=== PATIENT | male | born 1935 | race Caucasian/White ===

== ENCOUNTER 2021-07-13 00:33 | Inpatient (IN) | payer MEDICARE ==
--- NOTE | 2021-07-13 02:27 | XR ---
EXAMINATION TYPE: XR chest 1V DATE OF EXAM: 07/13/2021 COMPARISON: NONE HISTORY: Altered mental status TECHNIQUE: Single view FINDINGS: There is patchy bilateral pulmonary interstitial and airspace infiltrates. There is left ax illary pacemaker. Heart is top normal in size. There are no hilar masses. There is no pleural effusio n. IMPRESSION: Bilateral patchy pneumonia. No obvious heart failure.
--- NOTE | 2021-07-13 02:32 | CT ---
EXAMINATION TYPE: CT brain wo con DATE OF EXAM: 07/13/2021 COMPARISON: None HISTORY: ams. NO PRIOR ON pacs CT DLP: 1070.4 mGycm Automated exposure control for dose reduction was used. There is cerebral cortical atrophy. There is no mass effect nor midline shift. There is no sign of in tracranial hemorrhage. There is some patchy hypodensity in the periventricular white matter. There is hypodensity in most of the left cerebellar hemisphere in the superior aspect. This measures 4.6 x 2.1 cm. Fourth ventricle is in the midline. The calvarium is intact. Skull base is intact. Ther e is normal aeration of the mastoid sinuses. IMPRESSION: Cerebral atrophy and chronic small vessel ischemia. 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 No acute intracranial abnormality.
[2021-07-13 02:59] LABS: Glucose,Whole Blood 205 mg/dL (75-99)
[2021-07-13 03:45] LABS: Basophils % (A) 0 %; Eosinophils # (A) 0.1 k/uL (0-0.7); Eosinophils % (A) 1 %; HCT 39.8 % (39.0-53.0); HGB 13.3 gm/dL (13.0-17.5); Lymphocytes # (A) 0.7 k/uL (1.0-4.8); Lymphocytes % (A) 9 %; MCH 32.9 pg (25.0-35.0); MCHC 33.3 g/dL (31.0-37.0); Mean Platelet Volume 9.3; Monocytes # (A) 0.2 k/uL (0-1.0); Monocytes % (A) 3 %; Neutrophils # (A) 7.1 k/uL (1.3-7.7); Neutrophils % (A) 87 %; Platelet Count 304 k/uL (150-450); RBC 4.03 m/uL (4.30-5.90); RDW 13.3 % (11.5-15.5); WBC 8.2 k/uL (3.8-10.6)
[2021-07-13 03:46] LABS: Appearance,Urine Clear (Clear); Bilirubin,Urine Negative (Negative); Blood,Urine Negative (Negative); Color,Urine Yellow; Glucose,Urine (UA) 3+ (Negative); Ketones,Urine Negative (Negative); Leukocyte Esterase,Urine Negative (Negative); Nitrite,Urine Negative (Negative); PH, Urine 5.5 (5.0-8.0); Protein,Urine Trace (Negative); Specific Gravity,Urine 1.019 (1.001-1.035); Urobilinogen,Urine <2.0 mg/dL (<2.0)
[2021-07-13 04:05] LABS: Albumin 2.8 g/dL (3.5-5.0); Calcium 8.5 mg/dL (8.4-10.2); INR 1.1 (<1.2); Potassium 4.8 mmol/L (3.5-5.1); Prothrombin Time 11.3 sec (9.0-12.0); Total Bilirubin 0.9 mg/dL (0.2-1.3); Total Protein 5.6 g/dL (6.3-8.2)
[2021-07-13 04:10] LABS: Partial Thromboplastin Time 21.1 sec (22.0-30.0)
[2021-07-13] MEDS ORDERED: IBUPROFEN 400 MG TAB PO PRN (05:01)
[2021-07-13] MEDS ORDERED: ACETAMINOPHEN TAB 325 MG TAB PO PRN (05:01)
[2021-07-13] MEDS ORDERED: ONDANSETRON 4 MG/2 ML VIAL IVP PRN (05:01)
[2021-07-13] MEDS ORDERED: NALOXONE 0.4 MG/ML 1 ML VIAL IV PRN (05:01)
[2021-07-13] MEDS ORDERED: MAG HYDROX/AL HYDROX/SIMETH 30 ML CUP PO PRN (05:01)
[2021-07-13] MEDS: SODIUM CHLORIDE 0.9% 1,000 ML IV SCH ×2 (05:28→20:29)
[2021-07-13] MEDS: DEXAMETHASONE SOD PHOSPHATE 10 MG/ML 1 ML VIAL IV SCH (08:22)
--- NOTE | 2021-07-13 09:14 | ED ---
Altered Mental Status HPI - General Chief Complaint: Altered Mental Status Stated Complaint: Altered Mental, Urogenital, COVID+ Time Seen by Provider: 07/13/21 01:03 Source: patient Mode of arrival: wheelchair - History of Present Illness Initial Comments: This patient is an 86-year-old man who presents to have evaluation for altered mental status. The patient is with son and [id number] give most of the history. The family state they had gone to get the patient from the [facility] last week after he had developed fever or cough and was diagnosed with COVID-19. Since he has been with them he has been less active and more apathetic. He has been less verbal. He takes some prodding in order to answer questions now. The patient denies complaints. Patient is very hard of hearing MD Complaint: altered mental status, decreased responsiveness -: days(s) Severity: moderate Consistency of Symptoms: getting worse Context: other Associated Symptoms: cough - Related Data Allergies Allergy/AdvReac Type Severity Reaction Status Date / Time No Known Allergies Allergy Verified 07/13/21 00:45 Review of Systems ROS Statement: Those systems with pertinent positive or pertinent negative responses have been documented in the HPI. ROS Other: All systems not noted in ROS Statement are negative. Constitutional: Reports: fever, weakness Eyes: Denies: vision change ENT: Denies: congestion Respiratory: Reports: cough. 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 Absent: scleral icterus, conjunctival injection ENT exam: Present: mucous membranes dry Neck exam: Present: normal inspection, full ROM Respiratory exam: Present: rales. Absent: respiratory distress, wheezes, rhonchi, stridor Cardiovascular Exam: Present: regular rate, normal rhythm, normal heart sounds. Absent: systolic murmur, diastolic murmur, rubs, gallop GI/Abdominal exam: Present: soft. Absent: distended, tenderness, guarding, rebound, rigid, mass, pulsatile mass Extremities exam: Present: normal inspection, normal capillary refill. Absent: pedal edema, calf tenderness Back exam: Present: normal inspection. Absent: CVA tenderness (R), CVA tenderness (L) Neurological exam: Present: alert Skin exam: Present: warm, dry, intact, normal color. Absent: rash Course Vital Signs 07/13/21 07/13/21 07/13/21 00:36 02:48 03:50 Temperature 97.8 F Pulse Rate 69 68 58 L Respiratory 19 18 18 Rate Blood Pressure 90/57 115/64 124/66 O2 Sat by Pulse 91 L 90 L 93 L Oximetry 07/13/21 07/13/21 07/13/21 05:28 07:08 08:18 Temperature 98.9 F Pulse Rate 68 61 73 Respiratory 18 18 22 Rate Blood Pressure 115/63 117/65 112/88 O2 Sat by Pulse 93 L 92 L 94 L Oximetry Medical Decision Making - Lab Data Result diagrams: 07/13/21 03:03 07/13/21 03:03 Lab Results 07/13/21 07/13/21 07/13/21 Range/Units 02:58 03:03 03:03 WBC 8.2 (3.8-10.6) k/uL RBC 4.03 L (4.30-5.90) m/uL Hgb 13.3 (13.0-17.5) gm/dL Hct 39.8 (39.0-53.0) % MCV 99.0 (80.0-100.0) fL MCH 32.9 (25.0-35.0) pg MCHC 33.3 (31.0-37.0) g/dL RDW 13.3 (11.5-15.5) % Plt Count 304 (150-450) k/uL MPV 9.3 Neutrophils % 87 % Lymphocytes % 9 % Monocytes % 3 % Eosinophils % 1 % Basophils % 0 % Neutrophils # 7.1 (1.3-7.7) k/uL Lymphocytes # 0.7 L (1.0-4.8) k/uL Monocytes # 0.2 (0-1.0) k/uL Eosinophils # 0.1 (0-0.7) k/uL Basophils # 0.0 (0-0.2) k/uL PT 11.3 (9.0-12.0) sec INR 1.1 (<1.2) APTT 21.1 L (22.0-30.0) sec Sodium (137-145) mmol/L Potassium (3.5-5.1) mmol/L Chloride (98-107) mmol/L Carbon Dioxide (22-30) mmol/L Anion Gap mmol/L BUN (9-20) mg/dL Creatinine (0.66-1.25) mg/dL Est GFR (CKD-EPI)AfAm (>60 ml/min/1.73 sqM) Est GFR (CKD-EPI)NonAf (>60 ml/min/1.73 sqM) Glucose (74-99) mg/dL POC Glucose (mg/dL) 205 H (75-99) mg/dL POC Glu Mash Filter Cloth Changer ID Radhat Peter Calcium (8.4-10.2) mg/dL Total Bilirubin (0.2-1.3) mg/dL AST (17-59) U/L ALT (4-49) U/L Alkaline Phosphatase (38-126) U/L Troponin I (0.000-0.034) ng/mL Total Protein (6.3-8.2) g/dL Albumin (3.5-5.0) g/dL Urine Color Urine Appearance (Clear) Urine pH (5.0-8.0) Ur Specific [place] (1.001-1.035) Urine Protein (Negative) Urine Glucose (UA) (Negative) Urine Ketones (Negative) Urine Blood (Negative) Urine Nitrite (Negative) Urine Bilirubin (Negative) Urine Urobilinogen (<2.0) mg/dL Ur Leukocyte Esterase (Negative) 07/13/21 07/13/21 07/13/21 Range/Units 03:03 03:03 03:03 WBC (3.8-10.6) k/uL RBC (4.30-5.90) m/uL Hgb (13.0-17.5) gm/dL Hct (39.0-53.0) % MCV (80.0-100.0) fL MCH (25.0-35.0) pg MCHC (31.0-37.0) g/dL RDW (11.5-15.5) % Plt Count (150-450) k/uL MPV Neutrophils % % Lymphocytes % % Monocytes % % Eosinophils % % Basophils % % Neutrophils # (1.3-7.7) k/uL Lymphocytes # (1.0-4.8) k/uL Monocytes # (0-1.0) k/uL Eosinophils # (0-0.7) k/uL Basophils # (0-0.2) k/uL PT (9.0-12.0) sec INR (<1.2) APTT (22.0-30.0) sec Sodium 135 L (137-145) mmol/L Potassium 4.8 (3.5-5.1) mmol/L Chloride 108 H (98-107) mmol/L Carbon Dioxide 20 L (22-30) mmol/L Anion Gap 7 mmol/L BUN 38 H (9-20) mg/dL Creatinine 1.29 H (0.66-1.25) mg/dL Est GFR (CKD-EPI)AfAm 57 (>60 ml/min/1.73 sqM) Est GFR (CKD-EPI)NonAf 49 (>60 ml/min/1.73 sqM) Glucose 229 H (74-99) mg/dL POC Glucose (mg/dL) (75-99) mg/dL POC Glu Mash Filter Cloth Changer ID Calcium 8.5 (8.4-10.2) mg/dL Total Bilirubin 0.9 (0.2-1.3) mg/dL AST 27 (17-59) U/L ALT 22 (4-49) U/L Alkaline Phosphatase 90 (38-126) U/L Troponin I 0.015 (0.000-0.034) ng/mL Total Protein 5.6 L (6.3-8.2) g/dL Albumin 2.8 L (3.5-5.0) g/dL Urine Color Yellow Urine Appearance Clear (Clear) Urine pH 5.5 (5.0-8.0) Ur Specific [place] 1.019 (1.001-1.035) Urine Protein Trace H (Negative) Urine Glucose (UA) 3+ H (Negative) Urine Ketones Negative (Negative) Urine Blood Negative (Negative) Urine Nitrite Negative (Negative) Urine Bilirubin Negative (Negative) Urine Urobilinogen <2.0 (<2.0) mg/dL Ur Leukocyte Esterase Negative (Negative)
[2021-07-13] MEDS: CHOLECALCIFEROL 25 MCG (1000 IU) TABLET PO SCH (09:21)
[2021-07-13] MEDS: ENOXAPARIN 30 MG/0.3 ML SYRINGE SQ SCH (09:58)
[2021-07-13] MEDS: ASCORBIC ACID 500 MG TAB PO SCH (09:58)
[2021-07-13] MEDS: FAMOTIDINE 20 MG TAB PO SCH (09:58)
[2021-07-13] MEDS: ZINC SULFATE 220 MG CAP PO SCH (09:58)
--- NOTE | 2021-07-13 10:54 | P.HPIM ---
History of Present Illness This is a pleasant 86 years old male with past medical history of CVA with and unsteady gait. Patient is independent at baseline in the [facility], however he was admitted recently to [facility] for Covid [facility], he was admitted originally before being unresponsive and an appropriate period he said to the hospital for 4 days, he was discharge on a 3-4 L/m of oxygen. When he was discharged he was a little confused, talking in 1-[address] Kavon zamora at bedside. He was dribbling urine and been on the floor, getting worse yesterday so they decided to bring him to the hospital. This morning patient is sleepy but he wakes up to verbal stimuli, he knows he is in the hospital, it is 2020 and he couldn't recognize his [id number]. He denies any specific complaints. No chest pain or dyspnea. No abdominal pain. No nausea vomiting or diarrhea. No fever. pt presents with son and daughter in law. pt daughter reports possible UTI. says he was acting more confused then normal. discharged on tuesday from [facility] for COVID+. increased accidents and urgency of urination. normal he is AOx4. when asked about symptoms he says he is fine. pt not answering questions. On admission he was slightly hypotensive 90/57, currently blood pressure is 112/88, afebrile, he is saturating 94% on 4 L oxygen via nasal cannula CBC showed moderate lymphopenia at 0.7. INR is 1.1, sodium 135, creatinine is slightly elevated at 1.29, unknown baseline Glucose 205, urine analysis showing glucosuria with no evidence of infection EKG showing normal sinus rhythm at [address]-T changes and QTC 406. CT of the brain showing cerebral atrophy. No acute process. All large left cer ebellar hemisphere infarct. Chest x-ray: Bilateral pneumonia In the emergency room patient started on normal saline, dexamethasone and admitted with infectious disease consults Past Medical History Past Medical History: CVA/TIA Additional Past Medical History / Comment(s): 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, cataracts History of Any Multi-Drug Resistant Organisms: None Reported Past Surgical History: No Surgical Hx Reported Past Psychological History: No Psychological Hx Reported Smoking Status: Never smoker Past Alcohol Use History: None Reported Past Drug Use History: None Reported Medications and Allergies Home Medications Medication Instructions Recorded Confirmed Type Allopurinol [Zyloprim] 100 mg PO DAILY 07/13/21 07/13/21 History Artificial Tears-Hypromellose 1 drop BOTH EYES BID 07/13/21 07/13/21 History [Artificial Tear Drops] Aspirin EC [Ecotrin Low Dose] 81 mg PO HS 07/13/21 07/13/21 History Atorvastatin [Lipitor] 40 mg PO HS 07/13/21 07/13/21 History Cholecalciferol [Vitamin D3 (25 25 mcg PO DAILY 07/13/21 07/13/21 History Mcg = 1000 Iu)] Enalapril [Vasotec] 20 mg PO HS 07/13/21 07/13/21 History Allergies Allergy/AdvReac Type Severity Reaction Status Date / Time No Known Allergies Allergy Verified 07/13/21 10:41 Physical Exam Vitals: Vital Signs Temp Pulse Resp BP Pulse Ox 07/13/21 08:18 98.9 F 73 22 112/88 94 L 07/13/21 07:08 61 18 117/65 92 L 07/13/21 05:28 68 18 115/63 93 L 07/13/21 03:50 58 L 18 124/66 93 L 07/13/21 02:48 68 18 115/64 90 L 07/13/21 00:36 97.8 F 69 19 90/57 91 L Intake and Output 07/12/21 07/13/21 07/13/21 22:59 06:59 14:59 Other: Weight 54.431 kg Results CBC & Chem 7: 07/13/21 03:03 07/13/21 03:03 Labs: Abnormal Lab Results - Last 24 Hours (Table) 07/13/21 07/13/21 07/13/21 Range/Units 02:58 03:03 03:03 RBC 4.03 L (4.30-5.90) m/uL Lymphocytes # 0.7 L (1.0-4.8) k/uL APTT 21.1 L (22.0-30.0) sec Sodium (137-145) mmol/L Chloride (98-107) mmol/L Carbon Dioxide (22-30) mmol/L BUN (9-20) mg/dL Creatinine (0.66-1.25) mg/dL Glucose (74-99) mg/dL POC Glucose (mg/dL) 205 H (75-99) mg/dL Total Protein (6.3-8.2) g/dL Albumin (3.5-5.0) g/dL Urine Protein (Negative) Urine Glucose (UA) (Negative) 07/13/21 07/13/21 Range/Units 03:03 03:03 RBC (4.30-5.90) m/uL Lymphocytes # (1.0-4.8) k/uL APTT (22.0-30.0) sec Sodium 135 L (137-145) mmol/L Chloride 108 H (98-107) mmol/L Carbon Dioxide 20 L (22-30) mmol/L BUN 38 H (9-20) mg/dL Creatinine 1.29 H (0.66-1.25) mg/dL Glucose 229 H (74-99) mg/dL POC Glucose (mg/dL) (75-99) mg/dL Total Protein 5.6 L (6.3-8.2) g/dL Albumin 2.8 L (3.5-5.0) g/dL Urine Protein Trace H (Negative) Urine Glucose (UA) 3+ H (Negative) Assessment and Plan Assessment: Acute bilateral Covid pneumonia acute hypoxic respiratory failure Altered mental status most likely metabolic encephalopathy Acute kidney injury versus chronic kidney disease stage III History of CVA with and unsteady gait. CT showed old large left cerebellar hemisphere infarct Plan: This is a pleasant 86 years old male who presents with Covid pneumonia. Continue with with dexamethasone, multiple vitamin Infectious disease on pulmonary consult Lovenox Labs and medication were reviewed.. Continue same treatment. Continue with sy mptomatic treatment. Resume home medication. Monitor lytes and vitals. DVT and GI prophylaxis. Further recommendationsas per clinical course of the patient DVT prophylaxis: Subcutaneous heparin GI Prophylaxis: Pepcid PT/OT: Pending Prognosis is guarded
[2021-07-13] MEDS ORDERED: REMDESIVIR 200 MG in SODIUM CHLORIDE 0.9% 250 ML IVPB ONE (16:43)
--- NOTE | 2021-07-13 16:51 | P.CNPUL ---
History of Present Illness Consult date: 07/13/21 Chief complaint: Generalized weakness, altered mentation History of present illness: This patient is an 86-year-old man who presents to have evaluation for altered mental status. The patient is with son and [id number] give most of the his tory. The family state they had gone to get the patient from the [facility] last week after he had developed fever or cough and was diagnosed with COVID-19. Since he has been with them he has been less active and more apathetic. He has been less verbal. He takes some prodding in order to answer questions now. The patient denies complaints. Patient is very hard of hearing the preliminary workup that was done in emergency department revealed a white cell count of 8.2 and the patient had lymphopenia of 0.7. Normal coagulation profile. D-dimer was not done. 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 Glucose is at 229. The patient had normal LFTs, inflammatory markers have not been checked. UA is showing custody glucose, otherwise negative. COVID-19 testing was positive by PCR. The chest x-ray showed bilateral patchy pulmonary infiltrates consistent with COVID-19 related pneumonia. 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 No acute intracranial abnormalities. The patient was started on treatment with Decadron 6 mg IV every 24 hours. He was placed on Lovenox 30 mg subcu every 24 hours. Outpatient medication were also resumed. He is currently on IV fluids with normal saline at the rate of 75 mL an hour. The patient was checked positive on outpatient basis on 07/05/2021. His symptoms started on the same day and the family did outpatient testing kit the cuff turner to be positive. He is hard of hearing. His vision is impaired because of cataracts. Prior to that, he was living independently. Review of Systems Constitutional: Reports fatigue, Reports fever, Reports lethargy, Reports weakness Eyes: bilateral decreased vision, denies as per HPI, denies blurred vision, denies bulging eye, denies diplopia, denies discharge, denies dry eye, denies irritation, denies itching, denies pain, denies photophobia, denies loss of peripheral vision, denies loss of vision, denies tunnel vision/blind spots Ears: bilateral: decreased hearing, deny: ear discharge, earache, tinnitus Ears, nose, mouth and throat: Reports as per HPI Breasts: absent: as per HPI, gynecomastia Cardiovascular: Reports decreased exercise tolerance, Reports dyspnea on exertion Respiratory: Reports cough Gastrointestinal: Reports as per HPI (Dysphagia) Genitourinary: Reports as per HPI, Reports urinary frequency Musculoskeletal: Reports as per HPI, Reports muscle weakness Musculoskeletal: absent: ankle pain, ankle stiffness, ankle swelling Integumentary: Reports as per HPI Neurological: Reports as per HPI, Reports gait dysfunction, Reports lack of co ordination, Reports visual changes Psychiatric: Reports as per HPI (His throat. Leave any deficits on have) Endocrine: Reports as per HPI Hematologic/Lymphatic: Reports as per HPI Allergic/Immunologic: Reports as per HPI Past Medical History Past Medical History: CVA/TIA Additional Past Medical History / Comment(s): 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, cataracts History of Any Multi-Drug Resistant Organisms: None Reported Past Surgical History: No Surgical Hx Reported Past Psychological History: No Psychological Hx Reported Smoking Status: Never smoker Past Alcohol Use History: None Reported Past Drug Use History: None Reported Medications and Allergies Home Medications Medication Instructions Recorded Confirmed Type Allopurinol [Zyloprim] 100 mg PO DAILY 07/13/21 07/13/21 History Artificial Tears-Hypromellose 1 drop BOTH EYES BID 07/13/21 07/13/21 History [Artificial Tear Drops] Aspirin EC [Ecotrin Low Dose] 81 mg PO HS 07/13/21 07/13/21 History Atorvastatin [Lipitor] 40 mg PO HS 07/13/21 07/13/21 History Cholecalciferol [Vitamin D3 (25 25 mcg PO DAILY 07/13/21 07/13/21 History Mcg = 1000 Iu)] Enalapril [Vasotec] 20 mg PO HS 07/13/21 07/13/21 History Allergies Allergy/AdvReac Type Severity Reaction Status Date / Time No Known Allergies Allergy Verified 07/13/21 10:41 Physical Exam Vitals: Vital Signs Temp Pulse Resp BP Pulse Ox 07/13/21 08:18 98.9 F 73 22 112/88 94 L 07/13/21 07:08 61 18 117/65 92 L 07/13/21 05:28 68 18 115/63 93 L 07/13/21 03:50 58 L 18 124/66 93 L 07/13/21 02:48 68 18 115/64 90 L 07/13/21 00:36 97.8 F 69 19 90/57 91 L Intake and Output 07/13/21 07/13/21 07/13/21 06:59 14:59 22:59 Other: Weight 54.431 kg 54.431 kg Gen. appearance the patient is calm and comfortable and the breathing is non labored Head exam was generally normal. There was no scleral icterus or corneal arcus. Mucous membranes were moist. Neck was supple and without jugular venous distension, thyromegaly, or carotid bruits. Carotids were easily palpable bilaterally. There was no adenopathy. Lungs sounds are diminished and the patient has contacted the mid and lower lung gonzáles bilaterally Cardiac exam revealed the PMI to be normally situated and sized. The rhythm was regular and no extrasystoles were noted during several minutes of auscultation. The first and second heart sounds were normal and physiologic splitting of the second heart sound was noted. There was a systolic ejection murmur grade 3/6 murmurs, rubs, clicks, or gallops. The patient is a pacemaker pocket over the left anterior chest area Abdominal exam revealed normal bowel sounds. The abdomen was soft, non-tender, and without masses, organomegaly, or appreciable enlargement of the abdominal aorta. Examination of the extremities revealed easily palpable radial, femoral and pedal pulses. There was no cyanosis, clubbing or edema. Examination of the skin revealed no evidence of significant rashes, suspicious appearing nevi or other concerning lesions. Neurologically, the patient is awake and alert and the patient does not have any focal neurological deficit. The patient has difficult with gait and diffuse motor weakness all 4 extremities. No facial asymmetry. He has impaired vision secondary to cataracts and impaired hearing both being chronic problems. Results - Laboratory Findings CBC and BMP: 07/13/21 03:03 07/13/21 03:03 PT/INR, D-dimer PT 11.3 sec (9.0-12.0) 07/13/21 03:03 INR 1.1 (<1.2) 07/13/21 03:03 Abnormal lab findings: Abnormal Labs 07/13/21 07/13/21 07/13/21 02:58 03:03 03:03 RBC 4.03 L Lymphocytes # 0.7 L APTT 21.1 L Sodium Chloride Carbon Dioxide BUN Creatinine Glucose POC Glucose (mg/dL) 205 H Total Protein Albumin Urine Protein Urine Glucose (UA) Coronavirus (PCR) 07/13/21 07/13/21 07/13/21 03:03 03:03 10:13 RBC Lymphocytes # APTT Sodium 135 L Chloride 108 H Carbon Dioxide 20 L BUN 38 H Creatinine 1.29 H Glucose 229 H POC Glucose (mg/dL) Total Protein 5.6 L Albumin 2.8 L Urine Protein Trace H Urine Glucose (UA) 3+ H Coronavirus (PCR) Detected A - Diagnostic Findings Chest x-ray: image reviewed Assessment and Plan Plan: 1 acute COVID-19 related pneumonia and the symptoms started on 07/05/2021. The patient is currently hospitalized with worsening shortness of breath, lethargy, altered mentation and hypoxemia. Note that this is a vaccinated individual and the patient has received his J&J vaccine approximately 6-8 months ago. 2 acute hypoxic respiratory failure secondary to above currently on oxygen at 3 L. 3 cough and dyspnea secondary to above 4 lethargy and altered mentation secondary to above. CAT scan of the brain shows an old CVA 5 old left cerebellar CVA back in 2006 with secondary difficulties with balance and gait, 6 history of pacemaker insertion 7 impaired hearing 8 impaired vision 9 acute kidney injury with a creatinine of 1.29 10 hyperlipidemia 11 generalized weakness and intravascular volume the patient's secondary to above currently on IV fluids. Plan IV fluid hydration with normal saline at the rate of 75 mL an hour Titrate oxygen to maintain saturation above 90%, currently on 3 L Start The patient Decadron 6 mg every 24 hours and Remdesivir per protocol Lovenox 40 mg subcu for DVT prophylaxis Check inflammatory markers including LDH CRP and d-dimer Check pro calcitonin level Cover the patient with a insulin sliding scale coverage Patient has a DNR/DNI CODE STATUS.
[2021-07-13 17:26] LABS: Glucose,Whole Blood 323 mg/dL (75-99)
[2021-07-13] MEDS: INSULIN ASPART (NovoLOG) 100 UNIT/ML VIAL SQ SCH ×2 (17:34→21:34)
[2021-07-13 19:31] LABS: C Reactive Protein 15.3 mg/dL (<1.0)
[2021-07-13 21:27] LABS: Glucose,Whole Blood 188 mg/dL (75-99)
[2021-07-13] MEDS: ATORVASTATIN 40 MG TAB PO SCH (21:33)
[2021-07-13] MEDS: ASPIRIN 81 MG PO SCH (21:33)
--- NOTE | 2021-07-14 06:57 | P.CONS ---
History of Present Illness - Reason for Consult Consult date: 07/13/21 covid 19 pneumonia Requesting physician: Wesley E Sheet - Chief Complaint shortness of breath x few days - History of Present Illness History of present illness : Patient is 86-year-old male presenting to the hospital with mental status changes but when the patient family went to the [facility] to get the patient and the daughter the patient has developed a fever and a cough patient has been less active, there was some concern about a urinary symptom patient going to the mother more frequently however no clear history of any burning of urine no nausea no vomiting or any diarrhea with the symptom the patient has been evaluated by the ER physician on arrival to the ER the patient was afebrile and no fever was recorded subsequently patient was hypoxic requiring supplemental oxygen currently on 4 L nasal cannula patient did have a normal white count with the lymphopenia creatinine was mildly elevated did have a positive Covid test patient did have a chest x-ray with evidence of bilateral patchy pneumonia patient was admitted to hospital infectious was consulted for further management most information has been obtained from review the chart and talking with the daughter apparently the patient symptoms started around July 05, 2021 Review of system: Positive point has been mentioned in HPI complete review could not be obtained because of underlying mental status Past medical history : Reviewed, documented below Past surgical history : Reviewed, documented below Social history: Reviewed, documented below Medications: Reviewed, as documented below EXAMINATION: Vital sigans= Reviewed and documented below GENERAL DESCRIPTION: Elderly male lying in bed, no distress. No tachypnea or accessory muscle of respiration use. HEENT: Shows Pallor , no scleral icterus. Oral mucous membrane is dry. NECK: Trachea central, no thyromegaly. LUNGS: Unlabored breathing decreased breath sound at the base. No wheeze or crackle. HEART: S1, S2, regular rate and rhythm. ABDOMEN: Soft, no tenderness , guarding or rigidity EXTREMITIES: No edema of feet. SKIN: No rash, no masses palpable. NEUROLOGICAL: The patient is sleepy lethargic orientation could not be determined LABS AND RADIOLOGY: Reviewed results see below Assessment : Patient presented to hospital with weakness shortness of breath and cough in this patient did have evidence of bilateral patchy pneumonia secondary to COVID-19 infection in this patient symptom has been going on since July 05, 2021 and is currently more than 7 days and will not qualify for remdesivir per [facility] policy Plan: 1-patient has been started on dexamethasone Lovenox zinc and ascorbic acid to continue per protocol 2-droplet isolation and respiratory support We will follow on clinical condition and cultures to further adjust medication if needed Thank you for this consultation we will follow the patient along with you Past Medical History Past Medical History: CVA/TIA Additional Past Medical History / Comment(s): 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, cataracts History of Any Multi-Drug Resistant Organisms: None Reported Past Surgical History: No Surgical Hx Reported Past Psychological History: No Psychological Hx Reported Smoking Status: Never smoker Past Alcohol Use History: None Reported Past Drug Use History: None Reported Medications and Allergies Home Medications Medication Instructions Recorded Confirmed Type Allopurinol [Zyloprim] 100 mg PO DAILY 07/13/21 07/13/21 History Artificial Tears-Hypromellose 1 drop BOTH EYES BID 07/13/21 07/13/21 History [Artificial Tear Drops] Aspirin EC [Ecotrin Low Dose] 81 mg PO HS 07/13/21 07/13/21 History Atorvastatin [Lipitor] 40 mg PO HS 07/13/21 07/13/21 History Cholecalciferol [Vitamin D3 (25 25 mcg PO DAILY 07/13/21 07/13/21 History Mcg = 1000 Iu)] Enalapril [Vasotec] 20 mg PO HS 07/13/21 07/13/21 History Allergies Allergy/AdvReac Type Severity Reaction Status Date / Time No Known Allergies Allergy Verified 07/13/21 10:41 Physical Exam Vitals: Vital Signs Temp Pulse Pulse Resp BP BP Pulse Ox 07/14/21 06:00 97.4 F L 51 L 18 118/65 94 L 07/14/21 03:01 97.5 F L 56 L 16 101/48 93 L 07/13/21 23:38 52 L 16 103/56 95 07/13/21 16:47 97.8 F 59 L 18 119/61 91 L 07/13/21 08:18 98.9 F 73 22 112/88 94 L 07/13/21 07:08 61 18 117/65 92 L Intake and Output 07/13/21 07/13/21 07/14/21 14:59 22:59 06:59 Output Total 100 Balance -100 Output: Urine 100 Other: # Voids 2 Weight 54.431 kg Results CBC & Chem 7: 07/13/21 03:03 07/13/21 03:03 Labs: Abnormal Lab Results - Last 24 Hours (Table) 07/13/21 07/13/21 07/13/21 Range/Units 10:13 17:15 17:34 D-Dimer 7.27 H (<0.60) mg/L FEU POC Glucose (mg/dL) 323 H (75-99) mg/dL Lactate Dehydrogenase (313-618) U/L C-Reactive Protein (<1.0) mg/dL Coronavirus (PCR) Detected A (Not Detectd) 07/13/21 07/13/21 Range/Units 17:34 21:25 D-Dimer (<0.60) mg/L FEU POC Glucose (mg/dL) 188 H (75-99) mg/dL Lactate Dehydrogenase 993 H (313-618) U/L C-Reactive Protein 15.3 H (<1.0) mg/dL Coronavirus (PCR) (Not Detectd)
[2021-07-14 07:23] LABS: Glucose,Whole Blood 178 mg/dL (75-99)
[2021-07-14] MEDS: INSULIN ASPART (NovoLOG) 100 UNIT/ML VIAL SQ SCH ×4 (07:59→19:15)
[2021-07-14] MEDS: ENOXAPARIN 30 MG/0.3 ML SYRINGE SQ SCH (08:00)
[2021-07-14] MEDS: ASCORBIC ACID 500 MG TAB PO SCH (08:01)
[2021-07-14] MEDS: CHOLECALCIFEROL 25 MCG (1000 IU) TABLET PO SCH (08:01)
[2021-07-14] MEDS: ZINC SULFATE 220 MG CAP PO SCH (08:01)
[2021-07-14] MEDS: FAMOTIDINE 20 MG TAB PO SCH ×2 (08:01→19:15)
[2021-07-14] MEDS: DEXAMETHASONE SOD PHOSPHATE 10 MG/ML 1 ML VIAL IV SCH (08:01)
[2021-07-14] MEDS ORDERED: REMDESIVIR 100 MG in SODIUM CHLORIDE 0.9% 250 ML IVPB SCH (09:00)
[2021-07-14] MEDS: SODIUM CHLORIDE 0.9% 1,000 ML IV SCH ×2 (09:59→19:16)
[2021-07-14 10:59] LABS: African American GFR (CKD) 64.8 (60.0-200.0); Anion Gap 12.1 mmol/L (4.00-12.00); BUN/Creat Ratio 26.81 Ratio (12.00-20.00); Blood Urea Nitrogen 31.1 mg/dL (9.0-27.0); C Reactive Protein 8.2 mg/dL (0.00-0.80); Calcium 8.2 mg/dL (8.7-10.3); Carbon Dioxide 20.2 mmol/L (21.6-31.8); Non-African American GFR(CKD) 55.9 (60.0-200.0); Potassium 4.6 mmol/L (3.5-5.5)
[2021-07-14 11:46] LABS: Glucose,Whole Blood 127 mg/dL (75-99)
--- NOTE | 2021-07-14 14:27 | P.PN ---
Subjective Progress Note Date: 07/14/21 This patient is an 86-year-old man who presents to have evaluation for altered mental status. The patient is with son and [id number] give most of the history. The family state they had gone to get the patient from the [facility] last week after he had developed fever or cough and was diagnosed with COVID-19. Since he has been with them he has been less active and more apathetic. He has been less verbal. He takes some prodding in order to answer questions now. The patient denies complaints. Patient is very hard of hearing the preliminary workup that was done in emergency department revealed a white cell count of 8.2 and the patient had lymphopenia of 0.7. Normal coagulation profile. D-dimer was not done. Serum bicarb was at 20, anion gap of 7, creatinine of 1.29, SEO ENGINEER 38. Glucose is at 229. The patient had normal LFTs, inflammatory markers have not been checked. UA is showing custody glucose, otherwise negative. COVID-19 testing was positive by PCR. The chest x-ray showed bilateral patchy pulmonary infiltrates consistent with COVID-19 related pneumonia. 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 No acute intracranial abnormalities. The patient was started on treatment with Decadron 6 mg IV every 24 hours. He was placed on Lovenox 30 mg subcu every 24 hours. Outpatient medication were also resumed. He is currently on IV fluids with normal saline at the rate of 75 mL an hour. The patient was checked positive on outpatient basis on 07/05/2021. His symptoms started on the same day and the family did outpatient testing kit the nocturnist physician to be positive. He is hard of hearing. His vision is impaired because of cataracts. Prior to that, he was living independently. On today's evaluation of 07/14/2021, the patient is feeling well. Slightly more alert. Continue to have hard time, indicating with us as the patient has hard of hearing. Nevertheless, he seems to much more active and interactive on today's evaluation. No signs of any respiratory distress. No cough or sputum production on today's evaluation. He was started on Decadron yesterday. He was not a candidate for Remdesivir. Meanwhile, repeat blood work was done and the patient's creatinine is down to 1.2 with a mean of 31. Aggressive electrolyte are within normal limits. CRP is at 8.2, LDH level is at 347. Folic acid level is at 0.09. D-dimer is at 7.6. The patient is taking aspirin and Lovenox 30 mg subcu daily. The patient is also on Decadron 6 mg IV 24 hours. Objective - Vital Signs Vital signs: Vital Signs Temp 97.8 F 07/14/21 11:00 Pulse 57 L 07/14/21 11:00 Resp 16 07/14/21 11:00 BP 101/58 07/14/21 11:00 Pulse Ox 94 L 07/14/21 11:00 Intake & Output 07/13/21 07/14/21 07/14/21 18:59 06:59 18:59 Intake Total 118 Output Total 100 Balance -100 118 Weight 54.431 kg Intake: Oral 118 Output: Urine 100 Other: # Voids 2 - Exam Gen. appearance the patient is calm and comfortable and the breathing is nonlabored Head exam was generally normal. There was no scleral icterus or corneal arcus. Mucous membranes were moist. Neck was supple and without jugular venous distension, thyromegaly, or carotid bruits. Carotids were easily palpable bilaterally. There was no adenopathy. Lungs sounds are diminished and the patient has contacted the mid and lower lung gonzáles bilaterally Cardiac exam revealed the PMI to be normally situated and sized. The rhythm was regular and no extrasystoles were noted during several minutes of auscultation. The first and second heart sounds were normal and physiologic splitting of the second heart sound was noted. There was a systolic ejection murmur grade 3/6 murmurs, rubs, clicks, or gallops. The patient is a pacemaker pocket over the left anterior chest area Abdominal exam revealed normal bowel sounds. The abdomen was soft, non-tender, and without masses, organomegaly, or appreciable enlargement of the abdominal aorta. Examination of the extremities revealed easily palpable radial, femoral and pedal pulses. There was no cyanosis, clubbing or edema. Examination of the skin revealed no evidence of significant rashes, suspicious appearing nevi or other concerning lesions. Neurologically, the patient is awake and alert and the patient does not have any focal neurological deficit. The patient has difficult with gait and diffuse motor weakness all 4 extremities. No facial asymmetry. He has impaired vision secondary to cataracts and impaired hearing both being chronic problems. - Labs CBC & Chem 7: 07/13/21 03:03 07/14/21 05:45 Labs: Abnormal Lab Results - Last 24 Hours (Table) 07/13/21 07/13/21 07/13/21 Range/Units 17:15 17:34 17:34 D-Dimer 7.27 H (<0.60) mg/L FEU Carbon Dioxide (21.6-31.8) mmol/L Anion Gap (4.00-12.00) mmol/L BUN (9.0-27.0) mg/dL Est GFR (CKD-EPI)NonAf (60.0-200.0) BUN/Creatinine Ratio (12.00-20.00) Ratio Glucose (70-110) mg/dL POC Glucose (mg/dL) 323 H (75-99) mg/dL Calcium (8.7-10.3) mg/dL Lactate Dehydrogenase 993 H (313-618) U/L C-Reactive Protein 15.3 H (<1.0) mg/dL Procalcitonin (0.02-0.09) ng/mL 07/13/21 07/13/21 07/14/21 Range/Units 17:34 21:25 05:36 D-Dimer 7.68 H (<0.60) mg/L FEU Carbon Dioxide (21.6-31.8) mmol/L Anion Gap (4.00-12.00) mmol/L BUN (9.0-27.0) mg/dL Est GFR (CKD-EPI)NonAf (60.0-200.0) BUN/Creatinine Ratio (12.00-20.00) Ratio Glucose (70-110) mg/dL POC Glucose (mg/dL) 188 H (75-99) mg/dL Calcium (8.7-10.3) mg/dL Lactate Dehydrogenase (313-618) U/L C-Reactive Protein (<1.0) mg/dL Procalcitonin 0.10 H (0.02-0.09) ng/mL 07/14/21 07/14/21 07/14/21 Range/Units 05:45 07:22 11:45 D-Dimer (<0.60) mg/L FEU Carbon Dioxide 20.2 L (21.6-31.8) mmol/L Anion Gap 12.10 H (4.00-12.00) mmol/L BUN 31.1 H (9.0-27.0) mg/dL Est GFR (CKD-EPI)NonAf 55.9 L (60.0-200.0) BUN/Creatinine Ratio 26.81 H (12.00-20.00) Ratio Glucose 197 H (70-110) mg/dL POC Glucose (mg/dL) 178 H 127 H (75-99) mg/dL Calcium 8.2 L (8.7-10.3) mg/dL Lactate Dehydrogenase 347 H (313-618) U/L C-Reactive Protein 8.20 H (<1.0) mg/dL Procalcitonin (0.02-0.09) ng/mL Assessment and Plan Plan: 1 acute COVID-19 related pneumonia and the symptoms started on 07/05/2021. The patient is currently hospitalized with worsening shortness of breath, lethargy, altered mentation and hypoxemia. Note that this is a vaccinated individual and the patient has received his J&J vaccine approximately 6-8 months ago. The patient is clinically improved. The patient is on Decadron. The patient did not qualify for Remdesivir. No new issues and the patient is well hydrated for now. 2 acute hypoxic respiratory failure secondary to above currently on oxygen at 3 L. 3 cough and dyspnea secondary to above 4 lethargy and altered mentation secondary to above. 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 Plan Continue normal saline at the rate of 75 mL an hour, the patient is adequately hydrated Titrate oxygen to maintain saturation above 90%, currently on 3 L Continue Decadron Lovenox 40 mg subcu for DVT prophylaxis Check inflammatory markers including LDH CRP and d-dimer Follow calcitonin level is nonelevated Cover the patient with a insulin sliding scale coverage Patient has a DNR/DNI CODE STATUS.
[2021-07-14] MEDS ORDERED: LACTULOSE 20 GM/30 ML CUP PO PRN (16:54)
[2021-07-14] MEDS ORDERED: MAGNESIUM HYDROXIDE 2,400 MG/10 ML CUP PO PRN (16:54)
[2021-07-14] MEDS ORDERED: MELATONIN 3 MG TABLET PO PRN (16:54)
[2021-07-14 17:08] LABS: Glucose,Whole Blood 301 mg/dL (75-99)
--- NOTE | 2021-07-14 17:13 | P.PN ---
Progress Note - Text Progress Note Date: 07/14/21 Presenting complaint: Tired Hospital course Pleasant 86-year-old patient who lives in the [facility]. He was recently admitted to [facility] for carotid pneumonia. He was there for 4 days and discharged on 3 L of oxygen. He was a bit confused then. He was incontinent of urine. And he was more confused and decided to bring him in. Rather sleepy in the ER. No chest pain no shortness of breath no abdominal pain. No nausea vomiting. Patient was accompanied by his [id number] in the ER. His COVID-19 pneumonia symptoms started on 07/05/2021. Patient was vaccinated with J&J vaccine. A few months ago. Patient has a prior cerebrovascular stroke in 2006 with secondary difficulty in walking and balance. Has a pacemaker. Impaired hearing. 07/14/2021: Sitting up in a chair. Able to answer simple questions. Awake. Tired. Had about 25% of his breakfast and lunch. Denies any pain. Review of systems: Was done for constitutional, cardiovascular, GI, pulmonary. relevant finding as above Active Medications Acetaminophen (Acetaminophen Tab 325 Mg Tab) 650 mg PO Q6HR PRN PRN Reason: Mild Pain or Fever > 100.5 Al Hydroxide/Mg Hydroxide (Mag Hydrox/Al Hydrox/Simeth 30 Ml Cup) 15 ml PO Q6HR PRN PRN Reason: Indigestion Ascorbic Acid (Ascorbic Acid 500 Mg Tab) 1,000 mg PO DAILY [facility] Last Admin: 07/14/21 08:01 Dose: 1,000 mg Documented by: Aspirin (Aspirin 81 Mg) 81 mg PO [facility] Last Admin: 07/13/21 21:33 Dose: 81 mg Documented by: Atorvastatin Calcium (Atorvastatin 40 Mg Tab) 40 mg PO [facility] Last Admin: 07/13/21 21:33 Dose: 40 mg Documented by: Cholecalciferol (Cholecalciferol 25 Mcg (1000 Iu) Tablet) 50 mcg PO DAILY [facility] Last Admin: 07/14/21 08:01 Dose: 50 mcg Documented by: Dexamethasone Sodium Phosphate (Dexamethasone Sod Phosphate 10 Mg/Ml 1 Ml Vial) 6 mg IV DAILY [facility] Last Admin: 07/14/21 08:01 Dose: 6 mg Documented by: Enoxaparin Sodium (Enoxaparin 30 Mg/0.3 Ml Syringe) 30 mg SQ DAILY [facility] Last Admin: 07/14/21 08:00 Dose: 30 mg Documented by: Famotidine (Famotidine 20 Mg Tab) 40 mg PO DAILY [facility] Last Admin: 07/14/21 08:01 Dose: 40 mg Documented by: Sodium Chloride (Saline 0.9%) 1,000 mls @ 75 mls/hr IV .[id number] [facility] Last Admin: 07/14/21 09:59 Dose: Not Given Documented by: Ibuprofen (Ibuprofen 400 Mg Tab) 400 mg PO Q6HR PRN PRN Reason: Mild Pain or Fever > 100.5 Insulin Aspart (Insulin Aspart (Novolog) 100 Unit/Ml Vial) 0 unit SQ ACHS [facility]; Protocol Last Admin: 07/14/21 11:46 Dose: Not Given Documented by: Naloxone HCl (Naloxone 0.4 Mg/Ml 1 Ml Vial) 0.2 mg IV Q2M PRN PRN Reason: Opioid Reversal Ondansetron HCl (Ondansetron 4 Mg/2 Ml Vial) 4 mg IVP Q8HR PRN PRN Reason: Nausea And Vomiting Zinc Sulfate (Zinc Sulfate 220 Mg Cap) 220 mg PO DAILY [facility] Last Admin: 07/14/21 08:01 Dose: 220 mg Documented by: On examination: VITAL SIGNS: [97.7, 57, 16, 101/58, 94% on 4 L] GENERAL APPEARANCE: Sitting up in a chair, awake, slightly tired awake HEENT: Normal external appearance of nose and ear. Oral cavity normal EYES: Pupils equal. Conjunctiva normal. NECK: JVD not raised. Mass not palpable. RESPIRATORY: Respiratory effort normal. Decreased breath sounds. CARDIOVASCULAR: First and second sounds normal. No edema. ABDOMEN: Soft. Liver and spleen not palpable. No tenderness. No mass palpable. PSYCHIATRY: Patient knows that he is in the hospital can tell the year but slow to answer questions. INVESTIGATIONS, reviewed in the clinical context: July 14: Potassium 4.6 BUN 31 and creatinine 1.2 CRP 8.2 d-dimer 7.6 Admission labs: W BC 8.2 hemoglobin 13.3 platelets 304 potassium 4.8 BUN 38 creatinine 1.29 bicarb 20 albumin 2.8 Coronavirus [PCR]: Detected EKG tracing personally reviewed by me-normal sinus rhythm. Rate 68 Chest x-ray film personally reviewed by me-scattered infiltrates Computed tomography scan of the brain without contrast: Cerebral atrophy. Chronic small vessel ischemia. Old large left cerebellar hemisphere infarct Assessment and plan: -. Acute COVID-19 pneumonia with symptoms starting on 07/05/2021. Patient has received vaccination few months ago. Decadron. -Acute hypoxic respiratory failure from COVID-19 pneumonia On 4 L of nasal cannula -Acute metabolic encephalopathy what is described as COVID Fog Supportive care. re- orientation. -Chronic gait dysfunction from a prior left cerebellar hemisphere infarct. Fall precautions. PT OT. -Acute medical debility from COVID-19 pneumonia. PT OT. -Essential hypertension Vasotec 20 mg daily at bedtime -Hyperlipidemia Lipitor 40 mg daily at bedtime -Chronic gout Allopurinol 100 mg daily -Mild protein calorie malnutrition from decreased oral intake Ensure supplement 3 times a day. 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 Follow labs Ensure added. Dietitian consult. Fall precautions. It is ultrasound. Repeat labs. Spoke to patient's [id number] Jace Olivares at length. Questions were answered. Discharge planning was discussed. Will see how the patient doesn't PTOT. Total time spent today was 45 minutes with over 25 minutes of discussion.
[2021-07-14] MEDS: ATORVASTATIN 40 MG TAB PO SCH (19:15)
[2021-07-14] MEDS: ASPIRIN 81 MG PO SCH (19:15)
[2021-07-14] MEDS: QUEtiapine 25 MG TAB PO SCH (19:15)
[2021-07-14 19:21] LABS: Glucose,Whole Blood 269 mg/dL (75-99)
--- NOTE | 2021-07-14 22:29 | PN ---
PROGRESS NOTE DATE OF SERVICE: 07/14/2021 REASON FOR FOLLOWUP: COVID-19 pneumonia. INTERVAL HISTORY: Patient is afebrile. The patient is breathing comfortably today. Currently on 4 L nasal cannula. Denies having any chest pain. Did have a cough, not bringing up any sputum. No abdominal pain or diarrhea. PHYSICAL EXAMINATION: Blood pressure 157/73 with a pulse of 55, temperature is 97.6. He is 93% on 4 L nasal cannula. General description is an elderly male lying in bed in no distress. Respiratory system: Unlabored breathing, decreased intensity of breath sounds. No wheeze. Heart S1, S2. Regular rate and rhythm. Abdomen soft, no tenderness. LABS: Creatinine is 1.2. CRP is 8.20. DIAGNOSTIC IMPRESSION AND PLAN: Patient with acute COVID-19 pneumonia, some clinical improvement in this patient to continue with dexamethasone, Lovenox, zinc and ascorbic acid along with respiratory support. Monitor clinical course closely. Continue supportive care. MMODL / IJN: [id number] /
--- NOTE | 2021-07-14 23:12 | US ---
EXAMINATION TYPE: US kidneys/renal and bladder DATE OF EXAM: 07/14/2021 COMPARISON: NONE CLINICAL HISTORY: assess for CK D. Assess for CKD. EXAM MEASUREMENTS: Right Kidney: 8.5 x 4.3 x 4.8 cm Left Kidney: 9.1 x 4.3 x 4.6 cm Right Kidney: Measures slightly small in size. No hydronephrosis or masses seen Left Kidney: No hydronephrosis or masses seen Bladder: Echogenic area seen that appears to be within the bladder: 1.7 x 3.2 x 1.3 cm. Slightly limi lazarus due to bladder not being fully distended. Bilateral Jets seen: No. *Prostate appears prominent in bladder images measuring 3.9 x 5.8 x 4.3 cm. IMPRESSION: There is mild symmetric renal atrophy. No hydronephrosis. No evidence of a renal mass. There is round ed solid mass at the floor the urinary bladder measuring 1.7 x 1.3 cm that could be bladder or prosta te tumor. Enlarged prostate.
[2021-07-15 07:06] LABS: Glucose,Whole Blood 133 mg/dL (75-99)
[2021-07-15] MEDS: INSULIN ASPART (NovoLOG) 100 UNIT/ML VIAL SQ SCH ×4 (08:09→20:37)
[2021-07-15] MEDS: ENOXAPARIN 30 MG/0.3 ML SYRINGE SQ SCH (08:09)
[2021-07-15] MEDS: dexAMETHasone 2 MG TAB PO SCH (08:09)
[2021-07-15] MEDS: ZINC SULFATE 220 MG CAP PO SCH (08:09)
[2021-07-15] MEDS: ASCORBIC ACID 500 MG TAB PO SCH (08:09)
[2021-07-15] MEDS: FAMOTIDINE 20 MG TAB PO SCH (08:10)
[2021-07-15] MEDS: CHOLECALCIFEROL 25 MCG (1000 IU) TABLET PO SCH (08:10)
--- NOTE | 2021-07-15 08:34 | XR ---
EXAMINATION TYPE: XR chest 1V portable DATE OF EXAM: 07/15/2021 COMPARISON: Chest x-ray 07/13/2021 HISTORY: Covid 19 pneumonia, abnormal chest x-ray TECHNIQUE: Single frontal view of the chest is obtained. FINDINGS: There may be some slight interval improvement in aeration in the right lung as compared to prior, peripheral patchy increased attenuation persists bilaterally. No evident pneumothorax or pleu ral effusion. Cardiac mediastinal silhouette is stable. Generator is present in left pectoral region, there are leads in right atrium and ventricle. IMPRESSION: There is some improvement in aeration in the right lung.
[2021-07-15 08:42] LABS: African American GFR (CKD) 57 (>60 ml/min/1.73 sqM); Anion Gap 5 mmol/L; Blood Urea Nitrogen 33 mg/dL (9-20); Calcium 8.3 mg/dL (8.4-10.2); Carbon Dioxide 22 mmol/L (22-30); Chloride 109 mmol/L (98-107); Glucose 130 mg/dL (74-99); Non-African American GFR(CKD) 50 (>60 ml/min/1.73 sqM); Potassium 4.5 mmol/L (3.5-5.1); Sodium 136 mmol/L (137-145)
[2021-07-15 10:42] LABS: C Reactive Protein 3.7 mg/dL (<1.0)
[2021-07-15 11:26] LABS: Glucose,Whole Blood 238 mg/dL (75-99)
[2021-07-15 11:29] VITALS: BMI 20.5
--- NOTE | 2021-07-15 13:11 | P.PN ---
Subjective Progress Note Date: 07/15/21 This patient is an 86-year-old man who presents to have evaluation for altered mental status. The patient is with son and [id number] give most of the history. The family state they had gone to get the patient from the [facility] last week after he had developed fever or cough and was diagnosed with COVID-19. Since he has been with them he has been less active and more apathetic. He has been less verbal. He takes some prodding in order to answer questions now. The patient denies complaints. Patient is very hard of hearing the preliminary workup that was done in emergency department revealed a white cell count of 8.2 and the patient had lymphopenia of 0.7. Normal coagulation profile. D-dimer was not done. Serum bicarb was at 20, anion gap of 7, creatinine of 1.29, PROJECTION TECHNICIAN 38. Glucose is at 229. The patient had normal LFTs, inflammatory markers have not been checked. UA is showing custody glucose, otherwise negative. COVID-19 testing was positive by PCR. The chest x-ray showed bilateral patchy pulmonary infiltrates consistent with COVID-19 related pneumonia. 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 No acute intracranial abnormalities. The patient was started on treatment with Decadron 6 mg IV every 24 hours. He was placed on Lovenox 30 mg subcu every 24 hours. Outpatient medication were also resumed. He is currently on IV fluids with normal saline at the rate of 75 mL an hour. The patient was checked positive on outpatient basis on 07/05/2021. His symptoms started on the same day and the family did outpatient testing kit the boot turner to be positive. He is hard of hearing. His vision is impaired because of cataracts. Prior to that, he was living independently. On today's evaluation of 07/14/2021, the patient is feeling well. Slightly more alert. Continue to have hard time, indicating with us as the patient has hard of hearing. Nevertheless, he seems to much more active and interactive on today's evaluation. No signs of any respiratory distress. No cough or sputum production on today's evaluation. He was started on Decadron yesterday. He was not a candidate for Remdesivir. Meanwhile, repeat blood work was done and the patient's creatinine is down to 1.2 with a mean of 31. Aggressive electrolyte are within normal limits. CRP is at 8.2, LDH level is at 347. Folic acid level is at 0.09. D-dimer is at 7.6. The patient is taking aspirin and Lovenox 30 mg subcu daily. The patient is also on Decadron 6 mg IV 24 hours. An , the patient is stable on 3 L of oxygen by nasal cannula and his sitting up on a chair. Breathing is nonlabored and there are no signs of any respiratory distress. The patient is on Decadron. He was not a candidate for Remdesivir. He is on 3 L with a pulse ox of 98%. He is also on Lovenox 30 mg subcu on a daily basis for DVT prophylaxis. In terms of his blood work, his labs show a d-dimer level of 5.46, sodium of 136, potassium level of 4.5, creatinine is at 1.2 consistent with chronic kidney disease, CRP level is at 3.7 and the LDH level had dropped down to 347. He is tolerating his diet. No nausea. No vomiting. No emesis. His balance has been abnormal because of a previous history of a CVA. He is hard of hearing. He is also hard of seeing related to cataracts. Objective - Vital Signs Vital signs: Vital Signs Temp 97.3 F L 07/15/21 09:18 Pulse 52 L 07/15/21 09:18 Resp 17 07/15/21 09:18 BP 112/65 07/15/21 09:18 Pulse Ox 98 07/15/21 09:18 Intake & Output 07/14/21 07/15/21 07/15/21 18:59 06:59 18:59 Intake Total 590 Output Total 100 Balance 490 Weight 54.431 kg Intake: Oral 590 Output: Urine 100 Other: Voiding Method Incontinent # Voids 1 2 - Exam Gen. appearance the patient is calm and comfortable and the breathing is nonlabored Head exam was generally normal. There was no scleral icterus or corneal arcus. Mucous membranes were moist. Neck was supple and without jugular venous distension, thyromegaly, or carotid bruits. Carotids were easily palpable bilaterally. There was no adenopathy. Lungs sounds are diminished and the patient has contacted the mid and lower lung gonzáles bilaterally Cardiac exam revealed the PMI to be normally situated and sized. The rhythm was regular and no extrasystoles were noted during several minutes of auscultation. The first and second heart sounds were normal and physiologic splitting of the second heart sound was noted. There was a systolic ejection murmur grade 3/6 mu rmurs, rubs, clicks, or gallops. The patient is a pacemaker pocket over the left anterior chest area Abdominal exam revealed normal bowel sounds. The abdomen was soft, non-tender, and without masses, organomegaly, or appreciable enlargement of the abdominal aorta. Examination of the extremities revealed easily palpable radial, femoral and pedal pulses. There was no cyanosis, clubbing or edema. Examination of the skin revealed no evidence of significant rashes, suspicious appearing nevi or other concerning lesions. Neurologically, the patient is awake and alert and the patient does not have any focal neurological deficit. The patient has difficult with gait and diffuse motor weakness all 4 extremities. No facial asymmetry. He has impaired vision secondary to cataracts and impaired hearing both being chronic problems. - Labs CBC & Chem 7: 07/13/21 03:03 07/15/21 07:42 Labs: Abnormal Lab Results - Last 24 Hours (Table) 07/13/21 07/14/21 07/14/21 Range/Units 03:03 17:06 19:15 D-Dimer (<0.60) mg/L FEU Sodium (137-145) mmol/L Chloride (98-107) mmol/L BUN (9-20) mg/dL Creatinine (0.66-1.25) mg/dL Glucose (74-99) mg/dL POC Glucose (mg/dL) 301 H 269 H (75-99) mg/dL Hemoglobin A1c 8.3 H (4.0-6.0) % Calcium (8.4-10.2) mg/dL C-Reactive Protein (<1.0) mg/dL 07/15/21 07/15/21 07/15/21 Range/Units 07:05 07:42 07:43 D-Dimer 5.46 H (<0.60) mg/L FEU Sodium 136 L (137-145) mmol/L Chloride 109 H (98-107) mmol/L BUN 33 H (9-20) mg/dL Creatinine 1.28 H (0.66-1.25) mg/dL Glucose 130 H (74-99) mg/dL POC Glucose (mg/dL) 133 H (75-99) mg/dL Hemoglobin A1c (4.0-6.0) % Calcium 8.3 L (8.4-10.2) mg/dL C-Reactive Protein 3.7 H (<1.0) mg/dL 07/15/21 Range/Units 11:24 D-Dimer (<0.60) mg/L FEU Sodium (137-145) mmol/L Chloride (98-107) mmol/L BUN (9-20) mg/dL Creatinine (0.66-1.25) mg/dL Glucose (74-99) mg/dL POC Glucose (mg/dL) 238 H (75-99) mg/dL Hemoglobin A1c (4.0-6.0) % Calcium (8.4-10.2) mg/dL C-Reactive Protein (<1.0) mg/dL Assessment and Plan Plan: 1 acute COVID-19 related pneumonia and the symptoms started on 07/05/2021. The patient is currently hospitalized with worsening shortness of breath, lethargy, altered mentation and hypoxemia. Note that this is a vaccinated individual and the patient has received his J&J vaccine approximately 6-8 months ago. The patient is clinically improved. The patient is on Decadron. The patient did not qualify for Remdesivir. No new issues and the patient is well hydrated for now. He is clinically stable on 3 L of oxygen by nasal cannula. 2 acute hypoxic respiratory failure secondary to above currently on oxygen at 3 L. 3 cough and dyspnea secondary to above 4 lethargy and altered mentation secondary to above. 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 Plan Reduce IV fluids to KVO Continue Decadron Wean the oxygen to 2 L and try to wean it down to maintain saturation above 90% Repeat chest x-ray in the morning Continue rest of the supportive care Patient has a good appetite and he is tolerating his diet reasonably well Continue Lovenox 30 mg subcu daily DNR/DNI CODE STATUS
[2021-07-15 16:57] LABS: Glucose,Whole Blood 375 mg/dL (75-99)
[2021-07-15] MEDS: SODIUM CHLORIDE 0.9% 1,000 ML IV SCH (17:59)
--- NOTE | 2021-07-15 18:03 | PN ---
PROGRESS NOTE DATE OF SERVICE: 07/15/2021 REASON FOR FOLLOWUP: COVID-19 pneumonia. INTERVAL HISTORY: The patient is afebrile. The patient seems to be breathing more comfortably. No chest pain. Occasional cough. No abdominal pain or diarrhea. PHYSICAL EXAMINATION: Blood pressure 95/51, pulse of 62, temperature 97.5. He is 95% on 3 L nasal cannula. General description is an elderly male lying in bed in no distress. RESPIRATORY SYSTEM: Unlabored breathing. Decreased intensity of breath sounds. No wheeze. HEART: S1, S2. Regular rate and rhythm. ABDOMEN: Soft. No tenderness. LABS: Creatinine is 1.28. D-dimer is down to 5.46. Creatinine 3.7. DIAGNOSTIC IMPRESSION AND PLAN: Patient with acute COVID-19 pneumonia in this patient who seems to have shown some clinical improvement. The patient is currently covered with dexamethasone, Lovenox, zinc, ascorbic acid; to continue along with respiratory support, and monitor clinical course closely. MMODL / IJN: [id number] /
[2021-07-15 20:28] LABS: Glucose,Whole Blood 164 mg/dL (75-99)
[2021-07-15] MEDS: ATORVASTATIN 40 MG TAB PO SCH (20:37)
[2021-07-15] MEDS: ASPIRIN 81 MG PO SCH (20:37)
[2021-07-15] MEDS: QUEtiapine 25 MG TAB PO SCH (20:37)
--- NOTE | 2021-07-15 21:36 | P.PN ---
Progress Note - Text Progress Note Date: 07/15/21 Presenting complaint: Tired Hospital course Pleasant 86-year-old patient who lives in the [facility]. He was recently admitted to [facility] for carotid pneumonia. He was there for 4 days and discharged on 3 L of oxygen. He was a bit confused then. He was incontinent of urine. And he was more confused and decided to bring him in. Rather sleepy in the ER. No chest pain no shortness of breath no abdominal pain. No nausea vomiting. Patient was accompanied by his [id number] in the ER. His COVID-19 pneumonia symptoms started on 07/05/2021. Patient was vaccinated with J&J vaccine. A few months ago. Patient has a prior cerebrovascular stroke in 2006 with secondary difficulty in walking and balance. Has a pacemaker. Impaired hearing. 07/14/2021: Sitting up in a chair. Able to answer simple questions. Awake. Tired. Had about 25% of his breakfast and lunch. Denies any pain. 07/15/2021: Sitting up in a chair. More communicative. Oral intake is really improved. He walked 24 feet with a rolling walker. A bit unsteady. 3 L of nasal cannula Review of systems: Was done for constitutional, cardiovascular, GI, pulmonary. relevant finding as above Active Medications Acetaminophen (Acetaminophen Tab 325 Mg Tab) 650 mg PO Q6HR PRN PRN Reason: Mild Pain or Fever > 100.5 Al Hydroxide/Mg Hydroxide (Mag Hydrox/Al Hydrox/Simeth 30 Ml Cup) 15 ml PO Q6HR PRN PRN Reason: Indigestion Ascorbic Acid (Ascorbic Acid 500 Mg Tab) 1,000 mg PO DAILY REPLACED BY [facility] Last Admin: 07/15/21 08:09 Dose: 1,000 mg Documented by: Aspirin (Aspirin 81 Mg) 81 mg PO [facility] Last Admin: 07/15/21 20:37 Dose: 81 mg Documented by: Atorvastatin Calcium (Atorvastatin 40 Mg Tab) 40 mg PO [facility] Last Admin: 07/15/21 20:37 Dose: 40 mg Documented by: Cholecalciferol (Cholecalciferol 25 Mcg (1000 Iu) Tablet) 50 mcg PO DAILY REPLACED BY [facility] Last Admin: 07/15/21 08:10 Dose: 50 mcg Documented by: Dexamethasone (Dexamethasone 2 Mg Tab) 6 mg PO DAILY REPLACED BY [facility] Last Admin: 07/15/21 08:09 Dose: 6 mg Documented by: Enoxaparin Sodium (Enoxaparin 30 Mg/0.3 Ml Syringe) 30 mg SQ DAILY REPLACED BY [facility] Last Admin: 07/15/21 08:09 Dose: 30 mg Documented by: Famotidine (Famotidine 20 Mg Tab) 20 mg PO DAILY REPLACED BY [facility] Sodium Chloride (Saline 0.9%) 1,000 mls @ 20 mls/hr IV .Q24H REPLACED BY [facility] Last Admin: 07/15/21 17:59 Dose: 20 mls/hr Documented by: Insulin Aspart (Insulin Aspart (Novolog) 100 Unit/Ml Vial) [address] [facility] REPLACED BY [facility]; Protocol Last Admin: 07/15/21 20:37 Dose: 1 unit Documented by: Lactulose (Lactulose 20 Gm/30 Ml Cup) 20 gm PO DAILY PRN PRN Reason: Constipation Magnesium Hydroxide (Magnesium Hydroxide 2,400 Mg/10 Ml Cup) 2,400 mg PO DAILY PRN PRN Reason: Constipation Melatonin (Melatonin 3 Mg Tablet) 3 mg PO HS PRN PRN Reason: Insomnia Naloxone HCl (Naloxone 0.4 Mg/Ml 1 Ml Vial) 0.2 mg IV Q2M PRN PRN Reason: Opioid Reversal Ondansetron HCl (Ondansetron 4 Mg/2 Ml Vial) 4 mg IVP Q8HR PRN PRN Reason: Nausea And Vomiting Quetiapine Fumarate (Quetiapine 25 Mg Tab) 12.5 mg PO HS REPLACED BY [facility] Last Admin: 07/15/21 20:37 Dose: 12.5 mg Documented by: Zinc Sulfate (Zinc Sulfate 220 Mg Cap) 220 mg PO DAILY REPLACED BY [facility] Last Admin: 07/15/21 08:09 Dose: 220 mg Documented by: On examination: VITAL SIGNS: 97.5, 62, 17, 95/51, 95% on 3 L GENERAL APPEARANCE: Sitting up in a chair, awake, more communicative HEENT: Normal external appearance of nose and ear. Oral cavity normal EYES: Pupils equal. Conjunctiva normal. NECK: JVD not raised. Mass not palpable. RESPIRATORY: Respiratory effort normal. Decreased breath sounds. CARDIOVASCULAR: First and second sounds normal. No edema. ABDOMEN: Soft. Liver and spleen not palpable. No tenderness. No mass palpable. PSYCHIATRY: Answering simple questions INVESTIGATIONS, reviewed in the clinical context: July 15: D-dimer 5.46 potassium 4.5 BUN 33 creatinine 1.28 CRP 3.7 Reason ultrasound: Right kidney slightly small in size. Echogenic area seen appears to be possibly within the bladder. Prostate is prominent. Mild symmetrical renal atrophy. July 14: Potassium 4.6 BUN 31 and creatinine 1.2 CRP 8.2 d-dimer 7.6 Admission labs: W BC 8.2 hemoglobin 13.3 platelets 304 potassium 4.8 BUN 38 creatinine 1.29 bicarb 20 albumin 2.8 Coronavirus [PCR]: Detected EKG tracing personally reviewed by me-normal sinus rhythm. Rate 68 Chest x-ray film personally reviewed by me-scattered infiltrates Computed tomography scan of the brain without contrast: Cerebral atrophy. Chronic small vessel ischemia. Old large left cerebellar hemisphere infarct Assessment and plan: -. Acute COVID-19 pneumonia with symptoms starting on 07/05/2021. Patient has received vaccination few months ago. Decadron. -Acute hypoxic respiratory failure from COVID-19 pneumonia On 3 L of nasal cannula -Acute metabolic encephalopathy what is described as COVID Fog, improving Supportive care. re- orientation. -Chronic gait dysfunction from a prior left cerebellar hemisphere infarct. Fall precautions. PT OT. Walked about 24 feet with a walker today. -Acute medical debility from COVID-19 pneumonia. PT OT. -Essential hypertension Vasotec 20 mg daily at bedtime -Hyperlipidemia Lipitor 40 mg daily at bedtime -Chronic gout Allopurinol 100 mg daily -Mild protein calorie malnutrition from decreased oral intake Ensure supplement 3 times a day. 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 Consult urology Continue current medication treatment plan. Scattered on oxygen. Decadron. Patient doing well at [facility]. Spoke to the case loader operator. Also called patient's [id number] is back on the phone. Given up-to-date. Looking for disposition possibly in 24 hours. Likely go home with home therapy.
[2021-07-16 07:29] LABS: Glucose,Whole Blood 293 mg/dL (75-99)
--- NOTE | 2021-07-16 08:23 | P.GSCN ---
History of Present Illness Consult date: 07/16/21 History of present illness: 86 yo male brought to [facility] for pneumonia that is secondary to covid. He had an abdominal us that identified a potential bladder mass. 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 the history is somewhat limited. He denies difficulty voiding. He denies hemautria, dysuria , incontinence and utis. Denies previous urological evaluation Review of Systems difficult to assess due to deafness. Past Medical History Past Medical History: CVA/TIA Additional Past Medical History / Comment(s): 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, cataracts History of Any Multi-Drug Resistant Organisms: None Reported Past Surgical History: No Surgical Hx Reported Past Psychological History: No Psychological Hx Reported Smoking Status: Never smoker Past Alcohol Use History: None Reported Past Drug Use History: None Reported Medications and Allergies Home Medications Medication Instructions Recorded Confirmed Type Allopurinol [Zyloprim] 100 mg PO DAILY 07/13/21 07/13/21 History Artificial Tears-Hypromellose 1 drop BOTH EYES BID 07/13/21 07/13/21 History [Artificial Tear Drops] Aspirin EC [Ecotrin Low Dose] 81 mg PO HS 07/13/21 07/13/21 History Atorvastatin [Lipitor] 40 mg PO HS 07/13/21 07/13/21 History Cholecalciferol [Vitamin D3 (25 25 mcg PO DAILY 07/13/21 07/13/21 History Mcg = 1000 Iu)] Enalapril [Vasotec] 20 mg PO HS 07/13/21 07/13/21 History Allergies Allergy/AdvReac Type Severity Reaction Status Date / Time No Known Allergies Allergy Verified 07/13/21 10:41 Surgical - Exam Vital Signs Temp Pulse Resp BP Pulse Ox 97.8 F 69 19 90/57 91 L 07/13/21 00:36 07/13/21 00:36 07/13/21 00:36 07/13/21 00:36 07/13/21 00:36 - General thin frail. well developed - Eyes PERRL - ENT decreased hearing - Neck trachea midline - Respiratory normal respiratory effort - Cardiovascular Rhythm: regular - Abdomen Abdomen: soft, non tender Results - Labs 07/13/21 03:03 07/15/21 07:42 Abnormal Lab Results - Last 24 Hours (Table) 07/15/21 07/15/21 07/15/21 Range/Units 07:42 07:43 11:24 D-Dimer 5.46 H (<0.60) mg/L FEU Sodium 136 L (137-145) mmol/L Chloride 109 H (98-107) mmol/L BUN 33 H (9-20) mg/dL Creatinine 1.28 H (0.66-1.25) mg/dL Glucose 130 H (74-99) mg/dL POC Glucose (mg/dL) 238 H (75-99) mg/dL Calcium 8.3 L (8.4-10.2) mg/dL C-Reactive Protein 3.7 H (<1.0) mg/dL 07/15/21 07/15/21 07/16/21 Range/Units 16:47 20:27 07:27 D-Dimer (<0.60) mg/L FEU Sodium (137-145) mmol/L Chloride (98-107) mmol/L BUN (9-20) mg/dL Creatinine (0.66-1.25) mg/dL Glucose (74-99) mg/dL POC Glucose (mg/dL) 375 H 164 H 293 H (75-99) mg/dL Calcium (8.4-10.2) mg/dL C-Reactive Protein (<1.0) mg/dL Diabetes panel 07/15/21 Range/Units 07:42 Sodium 136 L (137-145) mmol/L Potassium 4.5 (3.5-5.1) mmol/L Chloride 109 H (98-107) mmol/L Carbon Dioxide 22 (22-30) mmol/L BUN 33 H (9-20) mg/dL Creatinine 1.28 H (0.66-1.25) mg/dL Glucose 130 H (74-99) mg/dL Calcium 8.3 L (8.4-10.2) mg/dL Calcium panel 07/15/21 Range/Units 07:42 Calcium 8.3 L (8.4-10.2) mg/dL Pituitary panel 07/15/21 Range/Units 07:42 Sodium 136 L (137-145) mmol/L Potassium 4.5 (3.5-5.1) mmol/L Chloride 109 H (98-107) mmol/L Carbon Dioxide 22 (22-30) mmol/L BUN 33 H (9-20) mg/dL Creatinine 1.28 H (0.66-1.25) mg/dL Glucose 130 H (74-99) mg/dL Calcium 8.3 L (8.4-10.2) mg/dL Adrenal panel 07/15/21 Range/Units 07:42 Sodium 136 L (137-145) mmol/L Potassium 4.5 (3.5-5.1) mmol/L Chloride 109 H (98-107) mmol/L Carbon Dioxide 22 (22-30) mmol/L BUN 33 H (9-20) mg/dL Creatinine 1.28 H (0.66-1.25) mg/dL Glucose 130 H (74-99) mg/dL Calcium 8.3 L (8.4-10.2) mg/dL - Imaging US - kidney/bladder: report reviewed, image reviewed Assessment and Plan Assessment: Impression: covid pneumonia, deafness. abnormal bladder us Recommendations; i suspect what is seen on the bladder us is the prostate. With no symptoms and no gross nor microhematuria it is much less likely to be abnormal pathology. After he recovers from covid op cysto in the office can be offered.
[2021-07-16] MEDS: CHOLECALCIFEROL 25 MCG (1000 IU) TABLET PO SCH (08:50)
[2021-07-16] MEDS: INSULIN ASPART (NovoLOG) 100 UNIT/ML VIAL SQ SCH ×2 (08:50→12:41)
[2021-07-16] MEDS: ASCORBIC ACID 500 MG TAB PO SCH (08:50)
[2021-07-16] MEDS: dexAMETHasone 2 MG TAB PO SCH (08:51)
[2021-07-16] MEDS: ENOXAPARIN 30 MG/0.3 ML SYRINGE SQ SCH (08:51)
[2021-07-16] MEDS: ZINC SULFATE 220 MG CAP PO SCH (08:51)
[2021-07-16] MEDS ORDERED: FAMOTIDINE 20 MG TAB PO SCH (09:00)
[2021-07-16 10:39] VITALS: PULSE 62; RESP 16
[2021-07-16 11:44] LABS: Glucose,Whole Blood 271 mg/dL (75-99)
[2021-07-16 14:46] VITALS: BP 118/69; TEMP 97.3
[2021-07-16] MEDS: SODIUM CHLORIDE 0.9% 1,000 ML IV SCH (15:20)
--- NOTE | 2021-07-16 18:58 | PN ---
PROGRESS NOTE DATE OF SERVICE: 07/16/2021. REASON FOR FOLLOWUP: COVID-19 pneumonia. INTERVAL HISTORY: The patient is afebrile. The patient is currently breathing comfortably on 2 L currently. Denies any chest pain or any worsening cough. No abdominal pain or diarrhea. PHYSICAL EXAMINATION: Blood pressure 118/69 with a pulse of 72, temperature 97.8. He is 95% on 2 L nasal cannula. General description is an elderly male up in the bed in no distress. Respiratory system: Unlabored breathing, decreased intensity of breath sounds, no wheeze. Heart S1, S2. Regular rate and rhythm. Abdomen soft, no tenderness. LABS: No new labs have been obtained today. DIAGNOSTIC IMPRESSION AND PLAN: Patient with acute COVID-19 pneumonia has been treated supportively with overall improvement on dexamethasone, Lovenox, zinc and ascorbic acid, to continue while monitoring his clinical course closely. Continue supportive care. MMODL / IJN: [id number] /
--- NOTE | 2021-07-17 19:07 | P.DS ---
Providers Date of admission: 07/13/21 05:01 Expected date of discharge: 07/16/21 Attending physician: Sabino Lance Consults: 07/13/21 05:02 Consult Physician Routine Consulting Provider: Viji Peñaloza Consult Reason/Comments: Covid-19 oneumonia Do you want consulting provider notified?: Yes 07/13/21 08:48 Consult Physician Urgent Consulting Provider: Regina Kerr Consult Reason/Comments: covid pna Do you want consulting provider notified?: Yes 07/15/21 21:28 Consult Physician Routine Consulting Provider: Mirza Schaeffer Consult Reason/Comments: bladder mass Do you want consulting provider notified?: Yes Primary care physician: Jason Holman DO Hospital Course: Presenting complaint: Tired Hospital course Pleasant 86-year-old patient who lives in the [facility]. He was recently admitted to [facility] for carotid pneumonia. He was there for 4 days and discharged on 3 L of oxygen. He was a bit confused then. He was incontinent of urine. And he was more confused and decided to bring him in. Rather sleepy in the ER. No chest pain no shortness of breath no abdominal pain. No nausea vomiting. Patient was accompanied by his [id number]-oyr in the ER. His COVID-19 pneumonia symptoms started on 07/05/2021. Patient was vaccinated with J&J vaccine. A few months ago. Patient has a prior cerebrovascular stroke in 2006 with secondary difficulty in walking and balance. Has a pacemaker. Impaired hearing. 07/14/2021: Sitting up in a chair. Able to answer simple questions. Awake. Tired. Had about 25% of his breakfast and lunch. Denies any pain. 07/15/2021: Sitting up in a chair. More communicative. Oral intake is really improved. He walked 24 feet with a rolling walker. A bit unsteady. 3 L of nasal cannula July 16: Discussed with rn field case manager. Patient will return to his family with home care. Oral intake much improved. Answering questions appropriately. Ambulating with a walker. Home oxygen. Sent home with tapering steroids. Patient was seen by Dr. Alonso he felt it was the prostate shadow showing up in the bladder ultrasound. Outpatient follow-up Discussion and discharge planning more than 35 minutes Consultation: Dr. Alonso from urology Dr. Jh from ID Dr. Kerr from pulmonary On examination: VITAL SIGNS: 97.3, 62, 16, 118/69, 95% on 2 L GENERAL APPEARANCE: Sitting up in a chair, awake, comfortable HEENT: Normal external appearance of nose and ear. Oral cavity normal EYES: Pupils equal. Conjunctiva normal. NECK: JVD not raised. Mass not palpable. RESPIRATORY: Respiratory effort normal. Decreased breath sounds. CARDIOVASCULAR: First and second sounds normal. No edema. ABDOMEN: Soft. Liver and spleen not palpable. No tenderness. No mass palpable. PSYCHIATRY: Answering questions appropriately INVESTIGATIONS, reviewed in the clinical context: July 15: D-dimer 5.46 potassium 4.5 BUN 33 creatinine 1.28 CRP 3.7 Reason ultrasound: Right kidney slightly small in size. Echogenic area seen appears to be possibly within the bladder. Prostate is prominent. Mild symmetrical renal atrophy. July 14: Potassium 4.6 BUN 31 and creatinine 1.2 CRP 8.2 d-dimer 7.6 Admission labs: W BC 8.2 hemoglobin 13.3 platelets 304 potassium 4.8 BUN 38 creatinine 1.29 bicarb 20 albumin 2.8 Coronavirus [PCR]: Detected EKG tracing personally reviewed by me-normal sinus rhythm. Rate 68 Chest x-ray film personally reviewed by me-scattered infiltrates Computed tomography scan of the brain without contrast: Cerebral atrophy. Chronic small vessel ischemia. Old large left cerebellar hemisphere infarct Assessment and plan: -. Acute COVID-19 pneumonia with symptoms starting on 07/05/2021. Patient has received vaccination few months ago. Decadron. -Acute hypoxic respiratory failure from COVID-19 pneumonia On 3 L of nasal cannula -Acute metabolic encephalopathy what is described as COVID Fog, improving Supportive care. re- orientation. -Chronic gait dysfunction from a prior left cerebellar hemisphere infarct. Fall precautions. PT OT. Walked about 24 feet with a walker today. -Acute medical debility from COVID-19 pneumonia. PT OT. -Essential hypertension Vasotec 20 mg daily at bedtime -Hyperlipidemia Lipitor 40 mg daily at bedtime -Chronic gout Allopurinol 100 mg daily -Mild protein calorie malnutrition from decreased oral intake Ensure supplement 3 times a day. 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 Possibly prostate shadow per urology. Follow-up outpatient Disposition: Home with family home care Plan - Discharge Summary Discharge Rx Participant: No New Discharge Prescriptions: New Ascorbic Acid [Vitamin C] 1,000 mg PO DAILY #60 tab Zinc Sulfate [Orazinc] 220 mg PO DAILY #30 cap Famotidine [Pepcid] 20 mg PO BID #60 tab predniSONE 10 mg PO DAILY #30 tab QUEtiapine [SEROquel] 12.5 mg PO HS #30 tab Rivaroxaban [Xarelto] 10 mg PO DAILY #30 tab Continue Cholecalciferol [Vitamin D3 (25 Mcg = 1000 Iu)] 25 mcg PO DAILY Atorvastatin [Lipitor] 40 mg PO HS Aspirin EC [Ecotrin Low Dose] 81 mg PO HS Artificial Tears-Hypromellose [Artificial Tear Drops] 1 drop BOTH EYES BID Allopurinol [Zyloprim] 100 mg PO DAILY No Action Enalapril [Vasotec] 20 mg PO HS Discharge Medication List Allopurinol [Zyloprim] 100 mg PO DAILY 07/13/21 [History] Artificial Tears-Hypromellose [Artificial Tear Drops] 1 drop BOTH EYES BID 07/13/21 [History] Aspirin EC [Ecotrin Low Dose] 81 mg PO HS 07/13/21 [History] Atorvastatin [Lipitor] 40 mg PO HS 07/13/21 [History] Cholecalciferol [Vitamin D3 (25 Mcg = 1000 Iu)] 25 mcg PO DAILY 07/13/21 [History] Enalapril [Vasotec] 20 mg PO HS 07/13/21 [History] Ascorbic Acid [Vitamin C] 1,000 mg PO DAILY #60 tab 07/16/21 [Rx] Famotidine [Pepcid] 20 mg PO BID #60 tab 07/16/21 [Rx] QUEtiapine [SEROquel] 12.5 mg PO HS #30 tab 07/16/21 [Rx] Rivaroxaban [Xarelto] 10 mg PO DAILY #30 tab 07/16/21 [Rx] Zinc Sulfate [Orazinc] 220 mg PO DAILY #30 cap 07/16/21 [Rx] predniSONE 10 mg PO DAILY #30 tab 07/16/21 [Rx] Follow up Appointment(s)/Referral(s): Jason Holman DO [Primary Care Provider] - 1 Week (Dzsxfcug-ft-rxf wishes to find a primary doctor closer to home. Pt is living with them in this area now. She will explore this on her own. ) [facility], [NON-STAFF] - As Needed Elvin Conteh MD [STAFF PHYSICIAN] - 08/04/21 11:40 am (cystoscopy) Patient Instructions/Handouts: Coronavirus Disease 2019 (COVID-19) Activity/Diet/Wound Care/Special Instructions: covid instructions Discharge Disposition: HOME WITH HOME HEALTH SERVICES
== END 2021-07-16 16:36 | disposition home health service (06) | DRG 177 ==
LOC: EC 00:33 → 4SSUR 05:01
PROVIDERS: ADMIT Hospitalist; ATTEND Hospitalist
DX: U07.1 COVID-19 (principal); J12.82 Pneumonia due to coronavirus disease 2019; J96.01 Acute respiratory failure with hypoxia; G93.41 Metabolic encephalopathy; R64 Cachexia; N17.9 Acute kidney failure, unspecified; E44.1 Mild protein-calorie malnutrition; N18.30 Chronic kidney disease, stage 3 unspecified; G31.9 Degenerative disease of nervous system, unspecified; I95.9 Hypotension, unspecified; I12.9 Hypertensive chronic kidney disease with stage 1 through stage 4 chronic kidney disease, or unspecified chronic kidney disease; E78.5 Hyperlipidemia, unspecified; M1A.9XX0 Chronic gout, unspecified, without tophus (tophi); R26.2 Difficulty in walking, not elsewhere classified; R32 Unspecified urinary incontinence; D72.810 Lymphocytopenia; R26.9 Unspecified abnormalities of gait and mobility; H91.90 Unspecified hearing loss, unspecified ear; H26.9 Unspecified cataract; Z68.20 Body mass index [BMI] 20.0-20.9, adult; Z79.82 Long term (current) use of aspirin; Z79.899 Other long term (current) drug therapy; Z95.0 Presence of cardiac pacemaker; Z71.3 Dietary counseling and surveillance
CPT/HCPCS: 36415; 70450; 71045; 76770; 80048; 80053; 81003; 83036; 83615; 84145; 84484; 85025; 85379; 85610; 85730; 86140; 87635; 93005; 94760; 99285

== ENCOUNTER → 2021-08-04 | Outpatient (CLI) | payer MEDICARE ==
--- NOTE | 2021-08-04 10:15 | CT ---
EXAMINATION TYPE: CT chest wo con DATE OF EXAM: 08/04/2021 COMPARISON: Radiograph 08/03/2021 and 07/13/2021 HISTORY: 86-year-old male J84.10, Pulmonary fibrosis TECHNIQUE: Contiguous axial scanning of the chest without IV contrast. Coronal and sagittal reconstru ctions performed. CT DLP: 170.10 mGycm Automated exposure control for dose reduction was used. FINDINGS: Left anterior chest wall pacemaker generator with right atrial and right ventricular leads. Heart borderline enlarged without pericardial effusion. LAD and RCA coronary artery calcifications ar e present. Mild aortic valvular calcifications. Borderline ectasia ascending aorta at 3.5 cm. Bovine configuration to the aortic arch with mild ather osclerotic arch calcifications. Ectasia upper descending thoracic aorta at 3.1 cm and lower descendin g thoracic aorta at 2.8 cm. There is large caliber to the main right and left pulmonary arteries measuring up to 3.2 cm on the ri ght and 2.6 cm on the left suggesting underlying pulmonary arterial hypertension. Scattered nonenlarged mediastinal lymph nodes are demonstrated. Subcarinal lymph node is prominent bu t not enlarged at 1.1 cm. Extensive bilateral patchy and confluent peripheral and peribronchial vascular groundglass. There is some developing mild bronchiolectasis, for example, within the lingula axial image 28 Visualized upper abdomen shows a 5 mm gallstone. Bones: Degenerative changes of the left shoulder. No osseous destructive process. IMPRESSION: 1. EXTENSIVE BILATERAL MID AND LOWER LUNG PREDOMINANT PERIPHERAL AND PERIBRONCHOVASCULAR GROUNDGLASS. FINDINGS COULD REPRESENT RESIDUAL COVID INFILTRATES OR DEVELOPING EXTENSIVE POSTINFECTIOUS SCARRING. WE SUSPECT THAT SCARRING HAS BEGUN SETTLING IN GIVEN SOME AREAS OF MILD BRONCHIOLECTASIS. OTHERWISE, AIR QUALITY CHEMIST, NSIP, AND HYPERSENSITIVITY PNEUMONITIS ARE ADDITIONAL DIFFERENTIAL CONSIDERATIONS. NO HONEYCOMB ING TO SUGGEST UIP. 2. PULMONARY ARTERIAL HYPERTENSION. 3. 5 MM GALLSTONE.
== END | disposition home or self-care (01) ==
LOC: RADCTMAIN 08:49
PROVIDERS: ATTEND Internal Medicine Critical Care Medicine
DX: R91.8 Other nonspecific abnormal finding of lung field (principal); I27.21 Secondary pulmonary arterial hypertension
CPT/HCPCS: 71250

== ENCOUNTER 2021-08-18 17:43 | Emergency (ER) | payer MEDICARE ==
[2021-08-18 18:23] VITALS: TEMP 98
[2021-08-18 18:25] LABS: Glucose,Whole Blood 364 mg/dL (75-99)
[2021-08-18] MEDS ORDERED: SODIUM CHLORIDE 0.9% 1,000 ML IV STA (19:55)
[2021-08-18 20:57] VITALS: RESP 20
[2021-08-18 21:24] LABS: Basophils % (A) 0 %; Eosinophils % (A) 0 %; HGB 11.7 gm/dL (13.0-17.5); Lymphocytes # (A) 1.7 k/uL (1.0-4.8); Lymphocytes % (A) 18 %; MCH 32.1 pg (25.0-35.0); MCHC 32.5 g/dL (31.0-37.0); MCV 98.8 fL (80.0-100.0); Mean Platelet Volume 9.5; Monocytes # (A) 0.3 k/uL (0-1.0); Monocytes % (A) 3 %; Neutrophils # (A) 7.8 k/uL (1.3-7.7); Neutrophils % (A) 79 %; Platelet Count 411 k/uL (150-450); RBC 3.64 m/uL (4.30-5.90); RDW 14.9 % (11.5-15.5); WBC 9.9 k/uL (3.8-10.6)
[2021-08-18 21:26] LABS: Appearance,Urine Clear (Clear); Bilirubin,Urine Negative (Negative); Blood,Urine Negative (Negative); Color,Urine Yellow; Glucose,Urine (UA) 4+ (Negative); Ketones,Urine Negative (Negative); Leukocyte Esterase,Urine Negative (Negative); Nitrite,Urine Negative (Negative); PH, Urine 5.5 (5.0-8.0); Protein,Urine Trace (Negative); Specific Gravity,Urine 1.022 (1.001-1.035); Urobilinogen,Urine <2.0 mg/dL (<2.0)
[2021-08-18 21:38] LABS: ALT 14 U/L (4-49); AST 27 U/L (17-59); African American GFR (CKD) 57 (>60 ml/min/1.73 sqM); Albumin 2.7 g/dL (3.5-5.0); Alkaline Phosphatase 73 U/L (38-126); Anion Gap 6 mmol/L; Blood Urea Nitrogen 34 mg/dL (9-20); Calcium 9.2 mg/dL (8.4-10.2); Carbon Dioxide 23 mmol/L (22-30); Chloride 109 mmol/L (98-107); Glucose 331 mg/dL (74-99); Non-African American GFR(CKD) 49 (>60 ml/min/1.73 sqM); Sodium 138 mmol/L (137-145); Total Bilirubin 0.5 mg/dL (0.2-1.3); Total Protein 5.5 g/dL (6.3-8.2)
[2021-08-18] MEDS ORDERED: INSULN ASP PRT/INSULIN ASPART 100 UNIT/ML 10 ML VIAL SQ ONE (22:00)
[2021-08-18 22:31] LABS: Glucose,Whole Blood 293 mg/dL (75-99)
--- NOTE | 2021-08-18 22:48 | ED ---
Recheck HPI - General Chief Complaint: Recheck/Abnormal Lab/Rx Stated Complaint: High blood sugar-sent by Dr. Kerr Time Seen by Provider: 08/18/21 19:53 Source: patient, family, RN notes reviewed Mode of arrival: ambulatory Limitations: no limitations - History of Present Illness Initial Comments: Patient is an 86-year-old male that presents to the emergency department with [id number] stating that his blood sugar was high at home. Patient is diabetic and was recently on steroids for Covid infection. Patient's [id number] notes that they don't have any insulin or anything at home that can help bring sugars down immediately. They note the patient usually sits in the 160-180 range and has recently been in the mid 200s due to steroids but today got 364. [id number] notes that they do try to encourage patient to drink plenty water. Patient was otherwise well-appearing in no apparent distress or pain. He denied any chest pain shortness of breath headache nausea vomiting diarrhea constipation fever fatigue chills. - Related Data Home Medications Medication Instructions Recorded Confirmed Allopurinol [Zyloprim] 100 mg PO DAILY 07/13/21 08/18/21 Artificial Tears-Hypromellose 1 drop BOTH EYES BID 07/13/21 08/18/21 [Artificial Tear Drops] Aspirin EC [Ecotrin Low Dose] 81 mg PO DAILY 07/13/21 08/18/21 Atorvastatin [Lipitor] 40 mg PO HS 07/13/21 08/18/21 Cholecalciferol [Vitamin D3 (25 25 mcg PO DAILY 07/13/21 08/18/21 Mcg = 1000 Iu)] Gentamicin 0.1% Cream 1 applic TOPICAL DAILY 08/18/21 08/18/21 Tamsulosin HCl [Flomax] 0.4 mg PO DAILY 08/18/21 08/18/21 predniSONE [Deltasone] 10 mg PO DAILY 08/18/21 08/18/21 Previous Rx's Medication Instructions Recorded Ascorbic Acid [Vitamin C] 1,000 mg PO DAILY #60 tab 07/16/21 Famotidine [Pepcid] 20 mg PO BID #60 tab 07/16/21 Rivaroxaban [Xarelto] 10 mg PO DAILY #30 tab 07/16/21 Zinc Sulfate [Orazinc] 220 mg PO DAILY #30 cap 07/16/21 Insulin Aspart [NovoLOG Flexpen] 2 units SQ TID #1 each 08/18/21 Allergies Allergy/AdvReac Type Severity Reaction Status Date / Time No Known Allergies Allergy Verified 08/18/21 20:46 Review of Systems ROS Statement: Those systems with pertinent positive or pertinent negative responses have been documented in the HPI. ROS Other: All systems not noted in ROS Statement are negative. Past Medical History Past Medical History: CVA/TIA Additional Past Medical History / Comment(s): 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, cataracts History of Any Multi-Drug Resistant Organisms: None Reported Past Surgical History: No Surgical Hx Reported Past Psychological History: No Psychological Hx Reported Smoking Status: Never smoker Past Alcohol Use History: None Reported Past Drug Use History: None Reported General Exam Limitations: no limitations General appearance: alert, in no apparent distress Head exam: Present: atraumatic, normocephalic, normal inspection Eye exam: Present: normal appearance, PERRL, EOMI. Absent: scleral icterus, conjunctival injection, periorbital swelling ENT exam: Present: normal exam, mucous membranes moist Neck exam: Present: normal inspection Respiratory exam: Present: normal lung sounds bilaterally. Absent: respiratory distress, wheezes, rales, rhonchi, stridor Cardiovascular Exam: Present: regular rate, normal rhythm, normal heart sounds. Absent: systolic murmur, diastolic murmur, rubs, gallop, clicks GI/Abdominal exam: Present: soft, normal bowel sounds. Absent: distended, tenderness, guarding, rebound, rigid Extremities exam: Present: normal inspection, full ROM, normal capillary refill. Absent: tenderness, pedal edema, joint swelling, calf tenderness Neurological exam: Present: alert, oriented X3 Psychiatric exam: Present: normal affect, normal mood Skin exam: Present: warm, dry, intact, normal color. Absent: rash Course Vital Signs 08/18/21 08/18/21 18:18 20:51 Temperature 98.0 F Pulse Rate 49 L 64 Respiratory 16 20 Rate Blood Pressure 112/67 O2 Sat by Pulse 94 L 94 L Oximetry Medical Decision Making - Medical Decision Making 86-year-old male with high blood sugar. Labs, 1 L normal saline ordered. Labs are unremarkable, blood sugar was 364 on repeat was 290 after fluids. 4 units of 7030 NovoLog ordered. Urinalysis shows 4+ glucose consistent with patient's dehydration. Case discussed with Dr. Sinha, patient can discharge home with follow-up to primary care. - Lab Data Result diagrams: 08/18/21 20:50 08/18/21 20:23 Lab Results 08/18/21 08/18/21 08/18/21 Range/Units 18:23 20:23 20:50 WBC 9.9 (3.8-10.6) k/uL RBC 3.64 L (4.30-5.90) m/uL Hgb 11.7 L (13.0-17.5) gm/dL Hct 36.0 L (39.0-53.0) % MCV 98.8 (80.0-100.0) fL MCH 32.1 (25.0-35.0) pg MCHC 32.5 (31.0-37.0) g/dL RDW 14.9 (11.5-15.5) % Plt Count 411 (150-450) k/uL MPV 9.5 Neutrophils % 79 % Lymphocytes % 18 % Monocytes % 3 % Eosinophils % 0 % Basophils % 0 % Neutrophils # 7.8 H (1.3-7.7) k/uL Lymphocytes # 1.7 (1.0-4.8) k/uL Monocytes # 0.3 (0-1.0) k/uL Eosinophils # 0.0 (0-0.7) k/uL Basophils # 0.0 (0-0.2) k/uL Sodium 138 (137-145) mmol/L Potassium 5.0 (3.5-5.1) mmol/L Chloride 109 H (98-107) mmol/L Carbon Dioxide 23 (22-30) mmol/L Anion Gap 6 mmol/L BUN 34 H (9-20) mg/dL Creatinine 1.29 H (0.66-1.25) mg/dL Est GFR (CKD-EPI)AfAm 57 (>60 ml/min/1.73 sqM) Est GFR (CKD-EPI)NonAf 49 (>60 ml/min/1.73 sqM) Glucose 331 H (74-99) mg/dL POC Glucose (mg/dL) 364 H (75-99) mg/dL POC Glu Corrugated Sheet Material Sheeter ID Angel Arellano Calcium 9.2 (8.4-10.2) mg/dL Total Bilirubin 0.5 (0.2-1.3) mg/dL AST 27 (17-59) U/L ALT 14 (4-49) U/L Alkaline Phosphatase 73 (38-126) U/L Total Protein 5.5 L (6.3-8.2) g/dL Albumin 2.7 L (3.5-5.0) g/dL Urine Color Urine Appearance (Clear) Urine pH (5.0-8.0) Ur Specific Cabins (1.001-1.035) Urine Protein (Negative) Urine Glucose (UA) (Negative) Urine Ketones (Negative) Urine Blood (Negative) Urine Nitrite (Negative) Urine Bilirubin (Negative) Urine Urobilinogen (<2.0) mg/dL Ur Leukocyte Esterase (Negative) Acetone, Qual Negative (Negative) 08/18/21 08/18/21 Range/Units 21:06 22:29 WBC (3.8-10.6) k/uL RBC (4.30-5.90) m/uL Hgb (13.0-17.5) gm/dL Hct (39.0-53.0) % MCV (80.0-100.0) fL MCH (25.0-35.0) pg MCHC (31.0-37.0) g/dL RDW (11.5-15.5) % Plt Count (150-450) k/uL MPV Neutrophils % % Lymphocytes % % Monocytes % % Eosinophils % % Basophils % % Neutrophils # (1.3-7.7) k/uL Lymphocytes # (1.0-4.8) k/uL Monocytes # (0-1.0) k/uL Eosinophils # (0-0.7) k/uL Basophils # (0-0.2) k/uL Sodium (137-145) mmol/L Potassium (3.5-5.1) mmol/L Chloride (98-107) mmol/L Carbon Dioxide (22-30) mmol/L Anion Gap mmol/L BUN (9-20) mg/dL Creatinine (0.66-1.25) mg/dL Est GFR (CKD-EPI)AfAm (>60 ml/min/1.73 sqM) Est GFR (CKD-EPI)NonAf (>60 ml/min/1.73 sqM) Glucose (74-99) mg/dL POC Glucose (mg/dL) 293 H (75-99) mg/dL POC Glu Corrugated Sheet Material Sheeter ID Adrianna Rizvi Calcium (8.4-10.2) mg/dL Total Bilirubin (0.2-1.3) mg/dL AST (17-59) U/L ALT (4-49) U/L Alkaline Phosphatase (38-126) U/L Total Protein (6.3-8.2) g/dL Albumin (3.5-5.0) g/dL Urine Color Yellow Urine Appearance Clear (Clear) Urine pH 5.5 (5.0-8.0) Ur Specific Cabins 1.022 (1.001-1.035) Urine Protein Trace H (Negative) Urine Glucose (UA) 4+ H (Negative) Urine Ketones Negative (Negative) Urine Blood Negative (Negative) Urine Nitrite Negative (Negative) Urine Bilirubin Negative (Negative) Urine Urobilinogen <2.0 (<2.0) mg/dL Ur Leukocyte Esterase Negative (Negative) Acetone, Qual (Negative) Disposition Clinical Impression: Hyperglycemia Disposition: HOME SELF-CARE Condition: Stable Instructions (If sedation given, give patient instructions): Hyperosmolar Hyper glycemic State (ED) Additional Instructions: Please return to the Emergency Department if symptoms worsen or any other concerns. Follow-up with primary care 1-2 days. Increase oral fluids. Is patient prescribed a controlled substance at d/c from ED?: No Referrals: Regina Kerr MD [Primary Care Provider] - 1-2 days Time of Disposition: 22:48
[2021-08-18 22:50] VITALS: BP 104/76; PULSE 63
== END 2021-08-18 23:16 | disposition home or self-care (01) ==
LOC: EC 17:43
DX: E11.65 Type 2 diabetes mellitus with hyperglycemia (principal); Z79.4 Long term (current) use of insulin; Z79.52 Long term (current) use of systemic steroids; Z79.82 Long term (current) use of aspirin; Z79.01 Long term (current) use of anticoagulants; Z79.899 Other long term (current) drug therapy
CPT/HCPCS: 36415; 80053; 81003; 82009; 85025; 96360; 96361; 99283

== ENCOUNTER → 2021-08-18 | Outpatient (CLI) | payer MEDICARE ==
[2021-08-19 00:02] LABS: African American GFR (CKD) 52.1 (60.0-200.0); Albumin 2.7 g/dL (3.8-4.9); Albumin/Globulin Ratio 1.11 (1.60-3.17); Anion Gap 12.9 mmol/L (10.00-18.00); BUN/Creat Ratio 22.01 Ratio (12.00-20.00); Blood Urea Nitrogen 30.6 mg/dL (9.0-27.0); Calcium 8.9 mg/dL (8.7-10.3); Carbon Dioxide 17.9 mmol/L (20.0-27.5); Globulin 2.4 g/dL (1.6-3.3); Non-African American GFR(CKD) 44.9 (60.0-200.0); Potassium 4.8 mmol/L (3.5-5.5); Total Bilirubin 0.3 mg/dL (0.30-1.20)
[2021-08-19 09:20] LABS: Basophils # (A) 0.03 X 10*3/uL (0.00-0.10); Basophils % (A) 0.3 %; Eosinophils # (A) 0 X 10*3/uL (0.04-0.35); Eosinophils % (A) 0 %; HCT 33.7 % (39.6-50.0); HGB 10.7 g/dL (13.0-17.0); Lymphocytes # (A) 1.44 X 10*3/uL (0.90-5.00); Lymphocytes % (A) 13.4 %; MCH 32.3 pg (27.0-32.0); MCHC 31.8 g/dL (32.0-37.0); MCV 101.8 fL (80.0-97.0); Monocytes # (A) 0.31 X 10*3/uL (0.20-1.00); Monocytes % (A) 2.9 %; Neutrophils # (A) 8.85 X 10*3/uL (1.80-7.70); Neutrophils % (A) 82.3 %; Platelet Count 382 X 10*3/uL (140-440); RBC 3.31 X 10*6/uL (4.40-5.60); RDW 15.3 % (11.5-14.5); WBC 10.75 X 10*3/uL (4.50-10.00)
== END | disposition home or self-care (01) ==
LOC: LABWHC1 16:00
PROVIDERS: ATTEND Internal Medicine Critical Care Medicine
DX: U07.1 COVID-19 (principal); J12.82 Pneumonia due to coronavirus disease 2019
CPT/HCPCS: 36415; 80053; 85025

== ENCOUNTER 2021-08-25 05:56 | Inpatient (IN) | payer MEDICARE ==
--- NOTE | 2021-08-25 06:31 | ED ---
General Adult HPI - General Chief complaint: Shortness of Breath Stated complaint: SOB,Weakness Time Seen by Provider: 08/25/21 06:30 Source: patient, family, RN notes reviewed Mode of arrival: wheelchair Limitations: no limitations - History of Present Illness Initial comments: 86-year-old male presents emergency Department with chief complaint of shortness of breath. Patient is here with family patient does admit that he had cold with neck told were. Patient was admitted at that time and be doing much better but up until last week to 2 weeks he's had increasing shortness of breath, exertional shortness of breath. Patient has no history of congestive heart failure no history DVT or PE. Patient does not have increasing cough, congestion no fever. Patient has seen Dr. Kerr in which she's had repeat x- rays, evaluation but symptoms are worsening. Patient is normally inventory does not have shortness of breath at baseline of this nature. Patient does have prior CVA is unsteady at some times but shows increasing weakness no focal weak ness. - Related Data Home Medications Medication Instructions Recorded Confirmed Allopurinol [Zyloprim] 100 mg PO DAILY 07/13/21 08/18/21 Artificial Tears-Hypromellose 1 drop BOTH EYES BID 07/13/21 08/18/21 [Artificial Tear Drops] Aspirin EC [Ecotrin Low Dose] 81 mg PO DAILY 07/13/21 08/18/21 Atorvastatin [Lipitor] 40 mg PO HS 07/13/21 08/18/21 Cholecalciferol [Vitamin D3 (25 25 mcg PO DAILY 07/13/21 08/18/21 Mcg = 1000 Iu)] Gentamicin 0.1% Cream 1 applic TOPICAL DAILY 08/18/21 08/18/21 Tamsulosin HCl [Flomax] 0.4 mg PO DAILY 08/18/21 08/18/21 predniSONE [Deltasone] 10 mg PO DAILY 08/18/21 08/18/21 Previous Rx's Medication Instructions Recorded Ascorbic Acid [Vitamin C] 1,000 mg PO DAILY #60 tab 07/16/21 Famotidine [Pepcid] 20 mg PO BID #60 tab 07/16/21 Rivaroxaban [Xarelto] 10 mg PO DAILY #30 tab 07/16/21 Zinc Sulfate [Orazinc] 220 mg PO DAILY #30 cap 07/16/21 Insulin Aspart [NovoLOG Flexpen] 2 units SQ TID #1 each 08/18/21 Allergies Allergy/AdvReac Type Severity Reaction Status Date / Time No Known Allergies Allergy Verified 08/25/21 06:01 Review of Systems ROS Statement: Those systems with pertinent positive or pertinent negative responses have been documented in the HPI. ROS Other: All systems not noted in ROS Statement are negative. Past Medical History Past Medical History: CVA/TIA Additional Past Medical History / Comment(s): 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, cataracts History of Any Multi-Drug Resistant Organisms: None Reported Past Surgical History: No Surgical Hx Reported Past Psychological History: No Psychological Hx Reported Smoking Status: Never smoker Past Alcohol Use History: None Reported Past Drug Use History: None Reported General Exam Limitations: no limitations General appearance: alert, in no apparent distress Head exam: Present: atraumatic, normocephalic, normal inspection Eye exam: Present: normal appearance, PERRL, EOMI. Absent: scleral icterus, conjunctival injection, periorbital swelling ENT exam: Present: normal exam, mucous membranes moist Neck exam: Present: normal inspection. Absent: tenderness, meningismus, lymphadenopathy Respiratory exam: Present: rales. Absent: normal lung sounds bilaterally, respiratory distress, wheezes, rhonchi, stridor Cardiovascular Exam: Present: regular rate, normal rhythm, normal heart sounds. Absent: systolic murmur, diastolic murmur, rubs, gallop, clicks Course Vital Signs 08/25/21 08/25/21 06:01 08:15 Temperature 97.9 F Pulse Rate 81 75 Respiratory 18 20 Rate Blood Pressure 104/59 138/75 O2 Sat by Pulse 96 95 Oximetry EKG Findings - EKG Comments: EKG Findings:: EKG performed at 6:21 sinus rhythm with PAC rate of 80 MT 178 QRS 70 QT/ QTC 376/433 Medical Decision Making - Medical Decision Making CT, x-ray and labs were reviewed. There shows evidence of a increasing pulmonary edema there is no evidence of PE. Patient has a pending BNP. Patient be admitted for CHF, given Lasix, echocardiogram will have consult to Dr. Kerr, cardiology - Lab Data Result diagrams: 08/25/21 06:40 08/25/21 06:40 Lab Results 08/25/21 08/25/21 08/25/21 Range/Units 06:29 06:40 06:40 WBC 10.4 (3.8-10.6) k/uL RBC 3.72 L (4.30-5.90) m/uL Hgb 11.7 L (13.0-17.5) gm/dL Hct 35.5 L (39.0-53.0) % MCV 95.4 (80.0-100.0) fL MCH 31.4 (25.0-35.0) pg MCHC 32.9 (31.0-37.0) g/dL RDW 14.3 (11.5-15.5) % Plt Count 320 (150-450) k/uL MPV 8.8 Neutrophils % 67 % Lymphocytes % 25 % Monocytes % 3 % Eosinophils % 4 % Basophils % 0 % Neutrophils # 7.0 (1.3-7.7) k/uL Lymphocytes # 2.6 (1.0-4.8) k/uL Monocytes # 0.3 (0-1.0) k/uL Eosinophils # 0.5 (0-0.7) k/uL Basophils # 0.0 (0-0.2) k/uL Hypochromasia Slight PT 11.5 (9.0-12.0) sec INR 1.1 (<1.2) APTT 21.7 L (22.0-30.0) sec D-Dimer 3.78 H (<0.60) mg/L FEU Sodium (137-145) mmol/L Potassium (3.5-5.1) mmol/L Chloride (98-107) mmol/L Carbon Dioxide (22-30) mmol/L Anion Gap mmol/L BUN (9-20) mg/dL Creatinine (0.66-1.25) mg/dL Est GFR (CKD-EPI)AfAm (>60 ml/min/1.73 sqM) Est GFR (CKD-EPI)NonAf (>60 ml/min/1.73 sqM) Glucose (74-99) mg/dL Plasma Lactic Acid Casper 1.4 (0.7-2.0) mmol/L Calcium (8.4-10.2) mg/dL Magnesium (1.6-2.3) mg/dL Total Bilirubin (0.2-1.3) mg/dL AST (17-59) U/L ALT (4-49) U/L Alkaline Phosphatase (38-126) U/L Troponin I (0.000-0.034) ng/mL Total Protein (6.3-8.2) g/dL Albumin (3.5-5.0) g/dL Coronavirus (PCR) (Not Detectd) 08/25/21 08/25/21 08/25/21 Range/Units 06:40 06:40 06:40 WBC (3.8-10.6) k/uL RBC (4.30-5.90) m/uL Hgb (13.0-17.5) gm/dL Hct (39.0-53.0) % MCV (80.0-100.0) fL MCH (25.0-35.0) pg MCHC (31.0-37.0) g/dL RDW (11.5-15.5) % Plt Count (150-450) k/uL MPV Neutrophils % % Lymphocytes % % Monocytes % % Eosinophils % % Basophils % % Neutrophils # (1.3-7.7) k/uL Lymphocytes # (1.0-4.8) k/uL Monocytes # (0-1.0) k/uL Eosinophils # (0-0.7) k/uL Basophils # (0-0.2) k/uL Hypochromasia PT (9.0-12.0) sec INR (<1.2) APTT (22.0-30.0) sec D-Dimer (<0.60) mg/L FEU Sodium 143 (137-145) mmol/L Potassium 4.0 (3.5-5.1) mmol/L Chloride 110 H (98-107) mmol/L Carbon Dioxide 28 (22-30) mmol/L Anion Gap 5 mmol/L BUN 25 H (9-20) mg/dL Creatinine 1.19 (0.66-1.25) mg/dL Est GFR (CKD-EPI)AfAm 63 (>60 ml/min/1.73 sqM) Est GFR (CKD-EPI)NonAf 54 (>60 ml/min/1.73 sqM) Glucose 207 H (74-99) mg/dL Plasma Lactic Acid Casper (0.7-2.0) mmol/L Calcium 9.1 (8.4-10.2) mg/dL Magnesium 2.1 (1.6-2.3) mg/dL Total Bilirubin 0.7 (0.2-1.3) mg/dL AST 32 (17-59) U/L ALT 13 (4-49) U/L Alkaline Phosphatase 85 (38-126) U/L Troponin I 0.053 H* (0.000-0.034) ng/mL Total Protein 5.4 L (6.3-8.2) g/dL Albumin 2.6 L (3.5-5.0) g/dL Coronavirus (PCR) Not Detected (Not Detectd) Critical Care Time Critical Care Time: Yes Total Critical Care Time: 35 Disposition Clinical Impression: Dyspnea, CHF (congestive heart failure), Pulmonary edema, Generalized weakness Disposition: ADMITTED IP TO THIS [facility] Condition: Fair Referrals: Regina Kerr MD [Primary Care Provider] - 1-2 days
[2021-08-25 07:06] LABS: Basophils % (A) 0 %; Eosinophils # (A) 0.5 k/uL (0-0.7); Eosinophils % (A) 4 %; HCT 35.5 % (39.0-53.0); HGB 11.7 gm/dL (13.0-17.5); Hypochromasia Slight; Lymphocytes # (A) 2.6 k/uL (1.0-4.8); Lymphocytes % (A) 25 %; MCH 31.4 pg (25.0-35.0); MCHC 32.9 g/dL (31.0-37.0); MCV 95.4 fL (80.0-100.0); Mean Platelet Volume 8.8; Monocytes # (A) 0.3 k/uL (0-1.0); Monocytes % (A) 3 %; Neutrophils % (A) 67 %; Platelet Count 320 k/uL (150-450); RBC 3.72 m/uL (4.30-5.90); RDW 14.3 % (11.5-15.5); WBC 10.4 k/uL (3.8-10.6)
[2021-08-25 07:27] LABS: INR 1.1 (<1.2); Prothrombin Time 11.5 sec (9.0-12.0)
[2021-08-25 07:31] LABS: Albumin 2.6 g/dL (3.5-5.0); Calcium 9.1 mg/dL (8.4-10.2); Magnesium 2.1 mg/dL (1.6-2.3); Total Bilirubin 0.7 mg/dL (0.2-1.3); Total Protein 5.4 g/dL (6.3-8.2)
[2021-08-25 07:37] LABS: Partial Thromboplastin Time 21.7 sec (22.0-30.0)
--- NOTE | 2021-08-25 07:38 | XR ---
EXAMINATION TYPE: XR chest 2V DATE OF EXAM: 08/25/2021 COMPARISON: 07/15/2021 INDICATION: Difficulty breathing TECHNIQUE: Single frontal view of the chest is obtained. FINDINGS: The heart size is normal. The pulmonary vasculature is prominent. Diffuse increased lung markings are present bilaterally. Pacemaker overlies left chest. IMPRESSION: 1. Diffuse increased pulmonary vascularity and increased lung markings. Correlate for pulmonary edema . Consider atypical pneumonia.
--- NOTE | 2021-08-25 09:06 | CT ---
EXAMINATION TYPE: CT chest angio for PE DATE OF EXAM: 08/25/2021 COMPARISON: Chest CT July 04, 2021 HISTORY: SOB, Elev. D dimer, history of recent covid infection. CT DLP: 223.1 mGycm. Automated Exposure Control for Dose Reduction was Utilized. CONTRAST: CTA scan of the thorax is performed with IV Contrast, patient injected with 63 mL of Isovue 370, pulm onary embolism protocol. MIP Images are created on CT scanner and reviewed. FINDINGS: Exam suboptimal inspiration unable to hold breath LUNGS: Persistent bilateral multifocal areas of groundglass opacity and organizing consolidations morris aterally on background mosaic attenuation. No pleural effusion or pneumothorax seen bilaterally. Some what low lung volumes remain present. MEDIASTINUM: There is near equal contrast in the right left heart system, there is no central pulmona ry embolism, there is heterogeneity of motion artifacts limiting evaluation for smaller segmental and subsegmental pulmonary emboli. There are no new greater than 1 cm hilar or mediastinal lymph nodes. Heart size stable upper limits of normal with dual-lead pacemaker. No Pericardial effusion is seen. Coronary artery calcification redemonstrated. Satisfactory enhancement of the aorta without aneurysm or dissection. Prominent right and left pulmonary arteries suggesting underlying pulmonary artery hyp ertension redemonstrated. OTHER: No additional significant abnormality is seen. IMPRESSION: Suboptimal study without central pulmonary embolism, cannot entirely exclude segmental or subsegmental PE on this study. Persistent bilateral multifocal groundglass opacities and lower lung organizing consolidations consistent with ongoing or recurrent covid-19 infection with increased bila teral lung involvement suggesting worsening infection and/or new alveolar and interstitial edema.
[2021-08-25] MEDS ORDERED: FUROSEMIDE 10 MG/ML 4 ML VIAL IV STA (09:28)
--- NOTE | 2021-08-25 15:48 | P.CNPUL ---
History of Present Illness Consult date: 08/25/21 Reason for consult: dyspnea, other Chief complaint: Dyspnea, generalized weakness History of present illness: 86-year-old male patient who was recently hospitalized from 07/13/2021 through 07/16/2021 with COVID-19 pneumonia. Patient was previously vaccinated with [employer] vaccine. Earlier in June she was hospitalized up [facility], subsequently was hospitalized again at [facility] and the above-mentioned dates for issues related to metabolic encephalopathy described as COVID fall and, and acute medical debility from COVID-19 pneumonia. At that time patient was still requiring oxygen at 3 L. Past medical history is significant for cerebrovascular stroke in 2006 with secondary difficulty in walking and balance. Other medical history includes hyperlipidemia, diabetes mellitus, and chronic kidney disease, unspecified. Patient was treated with supportive care, Remdesivir per protocol, Decadron, clinically he had improved and was discharged home in the care of his son and his [id number]. On 08/25/2021 patient was brought back to the emergency department for evaluation of shortness of breath, cough, and severe generalized weakness. Patient followed up with Dr. Kerr in the pulmonary clinic after his last hospitalization, he had recently finished his steroid taper. His [id number]-[id number] reports patient being very fatigued, reports increasing shortne ss of breath, exertional dyspnea. The patient does not have congestion or fever. There is some reported mild swelling in his right lower extremity however but there is no calf tenderness. Patient has had poor appetite. He has been so weak that his son had to carry him to put him in a car to bring him to the emergency department. His chest x-ray in the emergency department showing prominent pulmonary vasculature, diffuse increased lung markings. 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 CTA chest has been completed and this was a suboptimal study without clear central pulmonary embolism, cannot entirely exclude segmental or subsegmental pulmonary emboli, pneumonia greater than 1 cm hilar or mediastinal lymph nodes. No pericardial effusion, there was prominent right and left pulmonary arteries suggesting underlying pulmonary artery hypertension there were persistent bilateral multifocal groundglass opacities and lower lung organizing consolidation consistent with ongoing or recurrent COVID-19 infection which is increased in bilateral lungs and suggesting worsening infection and or new alveolar and interstitial edema. Blood work reveals white blood cell count of 10.4, hemoglobin of 11.7, INR 1.1, d-dimer was 3.78, electrolytes were unremarkable, BUN was 25 creatinine is 1.19 lactic acid was 1.4, glucose was 207, AST was 32, ALT was 13 alkaline phosphatase was 85, troponin was 0.053, proBNP was 917, albumin was 2.6. Patient was retested for COVID-19 and was found to be negative. Blood pressure is currently stable, not requiring any vasopressor support, patient has been afebrile, he is currently on 3 L of oxygen, lung sounds revealed coarse bilateral crackles. He is hard of hearing, but he is able to answer some simple questions, appears very worn out and fatigued. But no acute distress. Review of Systems All systems: negative Constitutional: Reports fatigue, Reports weakness, Denies chills, Denies fever Eyes: denies blurred vision, denies pain Ears, nose, mouth and throat: Denies headache, Denies sore throat Cardiovascular: Reports decreased exercise tolerance, Reports dyspnea on exertion, Denies chest pain, Denies shortness of breath Respiratory: Reports dyspnea, Reports home oxygen, Reports respiratory infections, Denies cough Gastrointestinal: Denies abdominal pain, Denies diarrhea, Denies nausea, Denies vomiting Musculoskeletal: Denies myalgias Integumentary: Denies pruritus, Denies rash Neurological: Reports balance difficulties, Reports gait dysfunction, Reports hearing difficulties, Reports weakness, Denies numbness Psychiatric: Denies anxiety, Denies depression Endocrine: Denies fatigue, Denies weight change Past Medical History Past Medical History: CVA/TIA Additional Past Medical History / Comment(s): 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, cataracts History of Any Multi-Drug Resistant Organisms: None Reported Past Surgical History: No Surgical Hx Reported Past Psychological History: No Psychological Hx Reported Smoking Status: Never smoker Past Alcohol Use History: None Reported Past Drug Use History: None Reported Medications and Allergies Home Medications Medication Instructions Recorded Confirmed Type Allopurinol [Zyloprim] 100 mg PO DAILY 07/13/21 08/25/21 History Artificial Tears-Hypromellose 1 drop BOTH EYES BID 07/13/21 08/25/21 History [Artificial Tear Drops] Aspirin EC [Ecotrin Low Dose] 81 mg PO DAILY 07/13/21 08/25/21 History Atorvastatin [Lipitor] 40 mg PO HS 07/13/21 08/25/21 History Cholecalciferol [Vitamin D3 (25 25 mcg PO DAILY 07/13/21 08/25/21 History Mcg = 1000 Iu)] Gentamicin 0.1% Cream 1 applic TOPICAL DAILY 08/18/21 08/25/21 History Ascorbic Acid [Vitamin C] 500 mg PO BID 08/25/21 08/25/21 History Insulin Aspart [NovoLOG Flexpen] See Protocol SQ AC-TID 08/25/21 08/25/21 History Allergies Allergy/AdvReac Type Severity Reaction Status Date / Time No Known Allergies Allergy Verified 08/25/21 10:10 Physical Exam Vitals: Vital Signs Temp Pulse Resp BP Pulse Ox 08/25/21 12:35 80 20 92/48 92 L 08/25/21 08:15 75 20 138/75 95 08/25/21 06:01 97.9 F 81 18 104/59 96 Intake and Output 08/25/21 08/25/21 08/25/21 06:59 14:59 22:59 Other: Weight 53.524 kg GENERAL EXAM: Debilitated, 86-year-old white male, on 3 L of oxygen, resting on the gurney in the hallway in the emergency department, with his son and his [id number] at the bedside. comfortable in no apparent distress. HEAD: Normocephalic/atraumatic. EYES: Normal reaction of pupils, equal size. Conjunctiva pink, sclera white. NOSE: Clear with pink turbinates. THROAT: No erythema or exudates. NECK: No masses, no JVD, no thyroid enlargement, no adenopathy. CHEST: No chest wall deformity. Symmetrical expansion. LUNGS: Equal air entry with diffuse bibasilar crackles CVS: Regular rate and rhythm, normal S1 and S2, no gallops, no murmurs, no rubs ABDOMEN: Soft, nontender. No hepatosplenomegaly, normal bowel sounds, no guarding or rigidity. EXTREMITIES: No clubbing, no edema, no cyanosis, 2+ pulses and upper and lower extremities. MUSCULOSKELETAL: Muscle strength and tone normal. SPINE: No scoliosis or deformity SKIN: No rashes CENTRAL NERVOUS SYSTEM: Arousable, however generally weak, fatigued No focal deficits, tone is normal in all 4 extremities. Results - Laboratory Findings CBC and BMP: 08/25/21 06:40 08/25/21 06:40 PT/INR, D-dimer PT 11.5 sec (9.0-12.0) 08/25/21 06:40 INR 1.1 (<1.2) 08/25/21 06:40 D-Dimer 3.78 mg/L FEU (<0.60) H 08/25/21 06:40 Abnormal lab findings: Abnormal Labs 08/25/21 08/25/21 08/25/21 06:40 06:40 06:40 RBC 3.72 L Hgb 11.7 L Hct 35.5 L APTT 21.7 L D-Dimer 3.78 H Chloride 110 H BUN 25 H Glucose 207 H Troponin I NT-Pro-B Natriuret Pep Total Protein 5.4 L Albumin 2.6 L 08/25/21 08/25/21 06:40 06:40 RBC Hgb Hct APTT D-Dimer Chloride BUN Glucose Troponin I 0.053 H* NT-Pro-B Natriuret Pep 917 H Total Protein Albumin - Diagnostic Findings Chest x-ray: report reviewed, image reviewed CT scan - chest: report reviewed, image reviewed Additional studies: EKG reviewed Assessment and Plan Plan: Assessment: #1. Weakness, general medical debility, worsening since COVID-19 infection in mid June, possibly related to encephalopathy, rule out possibility of infection and adrenal insufficiency #2. Altered mental status, rule out possibility of underlying infection. Patient tested negative for COVID-19, chest x-ray and CT angiogram of the chest showed persistent increased pulmonary vascular markings. CT angiogram showed no clear evidence of central pulmonary embolism however this was a suboptimal study #3. Increased d-dimer, CT angiogram of the chest showed no clear evidence of a central PE, we will obtain lower extremity Dopplers #4. Recent hospitalization in mid June for COVID-19 pneumonia, discharged home on home oxygen #5. Diabetes mellitus type 2 #6. Hyperlipidemia #7. Difficulty hearing #8. Poor appetite, difficulty swallowing, we'll obtain speech evaluation #9. Rule out possibility of adrenal insufficiency #10. Oropharyngeal candidiasis #11. General medical debility #12. 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 History of cataracts Plan: We'll send blood cultures and pro-calcitonin level Patient was retested for COVID-19 was found to be negative Chest x-ray and a CT angiogram of the chest reviewed still showing persistent p ulmonary vascular markings Oxygenation is stable, and patient is still on 3 L of oxygen, Appears generally very weak, debilitated We'll obtain TSH, cortisol level Echocardiogram will be obtained Blood work has been reviewed and other than elevated d-dimer did not show any major abnormality We'll consider obtaining brain CT without contrast Check lower extremity Dopplers for possibility of DVT We'll place the patient on prophylactic Lovenox We'll obtain speech evaluation to rule out difficulty swallowing Patient has extensive oral candidiasis and he'll be placed on Diflucan Obtain nutritional supplements We'll continue close monitoring CODE STATUS is DO NOT RESUSCITATE DO NOT INTUBATE We'll continue supportive care I performed a history & physical examination of the patient and discussed their management with my nurse practitioner, Rand Anthony. I reviewed the nurse practitioner's note and agree with the documented findings and plan of care. Lung sounds are positive for diffuse crackles throughout the lung gonzáles. The findings and the impression was discussed with the patient. I attest to the documentation by the nurse practitioner. Time with Patient: Greater than 30
--- NOTE | 2021-08-25 15:54 | P.HPIM ---
History of Present Illness Patient is a pleasant 86-year-old male was a discharged from the hospital after a prolonged hospital physician for Covid 19 pneumonia and patient was on systemic steroids which was recently discontinued. Patient was comfortable on 2 L of oxygen as an outpatient is is pretty status continued to get worse after discontinue additional steroids and the patient is presently on 5-6 L of oxygen and still short of breath. Patient lives with family that his son and ttaejtmk-[id number]-exp who takes good care of the patient. Patient has been fatigued and family is unable to care for him. Patient not has not been eating well patient does have oral thrush as well. Because of worsening shortness of breath Covid 19 PCR test was repeated again and the patient is negative for Covid 19 but the patient had a CT of the chest which showed diffuse bilateral groundglass of [id number] along with some residual infiltrates from his previous Covid 19. Patient doesn't have any PE at least in the central vessels although subsegmental PE cannot be excluded as per the reading. Patient has some hilar and mediastinal lymphadenopathy. REVIEW OF SYSTEMS: CONSTITUTIONAL: No fever, no malaise, no fatigue. HEENT: No recent visual problems or hearing problems. Denied any sore throat. CARDIOVASCULAR: No chest pain, orthopnea, PND, no palpitations, no syncope. PULMONARY: As mentioned in the interval history GASTROINTESTINAL: No diarrhea, no nausea, no vomiting, no abdominal pain. NEUROLOGICAL: No headaches, no weakness, no numbness. HEMATOLOGICAL: Denies any bleeding or petechiae. GENITOURINARY: Denies any burning micturition, frequency, or urgency. MUSCULOSKELETAL/RHEUMATOLOGICAL: Denies any joint pain, swelling, or any muscle pain. ENDOCRINE: Denies any polyuria or polydipsia. The rest of the 14-point review of systems is negative. PHYSICAL EXAMINATION: GENERAL: The patient is alert and oriented x3, not in any acute distress. Thin built cachectic HEENT: Pupils are round and equally reacting to light. EOMI. No scleral icterus. No conjunctival pallor. Normocephalic, atraumatic. No pharyngeal erythema. No thyromegaly. Oral trush CARDIOVASCULAR: S1 and S2 present. No murmurs, rubs, or gallops. PULMONARY: Chest is clear to auscultation, no wheezing or crackles. ABDOMEN: Soft, nontender, nondistended, normoactive bowel sounds. No palpable organomegaly. MUSCULOSKELETAL: No joint swelling or deformity. EXTREMITIES: No cyanosis, clubbing, or pedal edema. NEUROLOGICAL: Gross neurological examination did not reveal any focal deficits. SKIN: No rashes. 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 Patient doesn't have any fever doesn't have any significant leukocytosis -Generalized weakness, poor by mouth intake and moderate protein calorie malnutrition -Type 2 diabetes mellitus patient was started on sliding scale insulin -Oral thrush: Secondary to prolonged breathing treatments and systemic steroids patient was started on nystatin swish and swallow speech therapy was consulted as patient has following issues and can be secondary to fungal esophagitis, oropharyngeal candidiasis -Hyperlipidemia -Significant generalized weakness PT and OT evaluation patient may need placement in subacute rehabilitation DVT prophylaxis: Lovenox Past Medical History Past Medical History: CVA/TIA Additional Past Medical History / Comment(s): 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, cataracts History of Any Multi-Drug Resistant Organisms: None Reported Past Surgical History: No Surgical Hx Reported Past Psychological History: No Psychological Hx Reported Smoking Status: Never smoker Past Alcohol Use History: None Reported Past Drug Use History: None Reported Medications and Allergies Home Medications Medication Instructions Recorded Confirmed Type Allopurinol [Zyloprim] 100 mg PO DAILY 07/13/21 08/25/21 History Artificial Tears-Hypromellose 1 drop BOTH EYES BID 07/13/21 08/25/21 History [Artificial Tear Drops] Aspirin EC [Ecotrin Low Dose] 81 mg PO DAILY 07/13/21 08/25/21 History Atorvastatin [Lipitor] 40 mg PO HS 07/13/21 08/25/21 History Cholecalciferol [Vitamin D3 (25 25 mcg PO DAILY 07/13/21 08/25/21 History Mcg = 1000 Iu)] Gentamicin 0.1% Cream 1 applic TOPICAL DAILY 08/18/21 08/25/21 History Ascorbic Acid [Vitamin C] 500 mg PO BID 08/25/21 08/25/21 History Insulin Aspart [NovoLOG Flexpen] See Protocol SQ AC-TID 08/25/21 08/25/21 History Allergies Allergy/AdvReac Type Severity Reaction Status Date / Time No Known Allergies Allergy Verified 08/25/21 10:10 Physical Exam Vitals: Vital Signs Temp Pulse Resp BP Pulse Ox 08/25/21 12:35 80 20 92/48 92 L 08/25/21 08:15 75 20 138/75 95 08/25/21 06:01 97.9 F 81 18 104/59 96 Intake and Output 08/25/21 08/25/21 08/25/21 06:59 14:59 22:59 Other: Weight 53.524 kg Results CBC & Chem 7: 08/25/21 06:40 08/25/21 06:40 Labs: Abnormal Lab Results - Last 24 Hours (Table) 08/25/21 08/25/21 08/25/21 Range/Units 06:40 06:40 06:40 RBC 3.72 L (4.30-5.90) m/uL Hgb 11.7 L (13.0-17.5) gm/dL Hct 35.5 L (39.0-53.0) % APTT 21.7 L (22.0-30.0) sec D-Dimer 3.78 H (<0.60) mg/L FEU Chloride 110 H (98-107) mmol/L BUN 25 H (9-20) mg/dL Glucose 207 H (74-99) mg/dL Troponin I (0.000-0.034) ng/mL NT-Pro-B Natriuret Pep (0-450) pg/mL Total Protein 5.4 L (6.3-8.2) g/dL Albumin 2.6 L (3.5-5.0) g/dL 08/25/21 08/25/21 Range/Units 06:40 06:40 RBC (4.30-5.90) m/uL Hgb (13.0-17.5) gm/dL Hct (39.0-53.0) % APTT (22.0-30.0) sec D-Dimer (<0.60) mg/L FEU Chloride (98-107) mmol/L BUN (9-20) mg/dL Glucose (74-99) mg/dL Troponin I 0.053 H* (0.000-0.034) ng/mL NT-Pro-B Natriuret Pep 917 H (0-450) pg/mL Total Protein (6.3-8.2) g/dL Albumin (3.5-5.0) g/dL
--- NOTE | 2021-08-25 15:55 | US ---
EXAMINATION TYPE: US venous doppler duplex LE DATE OF EXAM: 08/25/2021 3:41 PM COMPARISON: NONE CLINICAL HISTORY: elevated d-dimer. Elevated D-dimer SIDE PERFORMED: Bilateral TECHNIQUE: The lower extremity deep venous system is examined utilizing real time linear array sonog eladia with graded compression, doppler sonography and color-flow sonography. VESSELS IMAGED: Common Femoral Vein Deep Femoral Vein Greater Saphenous Vein * Femoral Vein Popliteal Vein Small Saphenous Vein * Proximal Calf Veins (* superficial vessels) Right Leg: Negative for DVT Left Leg: Negative for DVT IMPRESSION: 1. No diagnostic evidence of DVT as visualized.
[2021-08-25 16:46] LABS: Glucose,Whole Blood 149 mg/dL (75-99)
[2021-08-25] MEDS: NYSTATIN 100,000 UNIT/ML SUSP 500,000 UNIT/5 ML CUP PO SCH ×2 (18:27→22:33)
[2021-08-25] MEDS: dexAMETHasone 2 MG TAB PO SCH (18:27)
[2021-08-25] MEDS: INSULIN ASPART (NovoLOG) 100 UNIT/ML VIAL SQ SCH ×2 (18:27→21:27)
[2021-08-25] MEDS: TAMSULOSIN 0.4 MG CAP.ER.24H PO SCH (21:25)
[2021-08-25] MEDS: ASCORBIC ACID 500 MG TAB PO SCH (21:26)
[2021-08-25] MEDS: ATORVASTATIN 40 MG TAB PO SCH (21:26)
[2021-08-25] MEDS: ARTIFICIAL TEARS-HYPROMELLOSE DROPS 15 ML BTL BOTH EYES SCH (21:27)
[2021-08-26 06:18] LABS: HCT 31.9 % (39.0-53.0); HGB 10.4 gm/dL (13.0-17.5); Hypochromasia Slight; MCH 31.9 pg (25.0-35.0); MCHC 32.7 g/dL (31.0-37.0); MCV 97.4 fL (80.0-100.0); Mean Platelet Volume 8.8; Platelet Count 291 k/uL (150-450); RBC 3.27 m/uL (4.30-5.90); RDW 14.2 % (11.5-15.5); WBC 7.4 k/uL (3.8-10.6)
[2021-08-26 06:30] LABS: Glucose,Whole Blood 289 mg/dL (75-99)
[2021-08-26] MEDS ORDERED: ENOXAPARIN 40 MG/0.4 ML SYRINGE SQ SCH ×2 (09:00)
[2021-08-26] MEDS: dexAMETHasone 2 MG TAB PO SCH (09:58)
[2021-08-26] MEDS: CHOLECALCIFEROL 25 MCG (1000 IU) TABLET PO SCH (09:58)
[2021-08-26] MEDS: NYSTATIN 100,000 UNIT/ML SUSP 500,000 UNIT/5 ML CUP PO SCH ×2 (09:59→14:09)
[2021-08-26] MEDS: ASCORBIC ACID 500 MG TAB PO SCH ×2 (09:59→21:36)
[2021-08-26] MEDS: ASPIRIN 81 MG PO SCH (09:59)
[2021-08-26] MEDS: ARTIFICIAL TEARS-HYPROMELLOSE DROPS 15 ML BTL BOTH EYES SCH ×2 (09:59→21:44)
[2021-08-26] MEDS: ZINC SULFATE 220 MG CAP PO SCH (09:59)
[2021-08-26] MEDS: INSULIN ASPART (NovoLOG) 100 UNIT/ML VIAL SQ SCH ×5 (10:01→21:45)
--- NOTE | 2021-08-26 10:33 | ECHOF ---
Referral Reason:CHF, sob, MEASUREMENTS -------- HEIGHT: 167.6 cm WEIGHT: 59.0 kg BP: RVIDd: 2.1 cm (< 3.3) IVSd: 1.2 cm (0.6 - 1.1) LVIDd: 2.6 cm (3.9 - 5.3) LVPWd: 1.5 cm (0.6 - 1.1) IVSs: 1.9 cm LVIDs: 1.4 cm LVPWs: 1.5 cm Ao Diam: 3.2 cm (2.0 - 3.7) AV Cusp: 1.5 cm (1.5 - 2.6) LA Diam: 3.1 cm (2.7 - 3.8) MV EXCURSION: 17.354 mm (> 18.000) MV EF SLOPE: 80 mm/s (70 - 150) EPSS: 0.4 cm MV E Pedro: 0.53 m/s MV DecT: 187 ms MV A Pedro: 0.61 m/s MV E/A Ratio: 0.86 RAP: 5.00 mmHg RVSP: 43.62 mmHg FINDINGS -------- This was a technically difficult study with suboptimal apical views. The left ventricular size is normal. There is mild concentric left ventricular hypertrophy. Overa ll left ventricular systolic function is normal with, an EF between 55 - 60 %. The right ventricle is normal in size. The left atrial size is normal. The right atrial size is normal. The aortic valve is trileaflet and appears structurally normal. The mitral valve is normal. Mild mitral regurgitation is present. The tricuspid valve appears structurally normal. Moderate tricuspid regurgitation present. There is mild pulmonary hypertension. The right ventricular systolic pressure, as measured by Doppler, is 43.62mmHg. There is no pulmonic regurgitation present. The aortic root size is normal. IVC Not well visulized. There is no pericardial effusion. CONCLUSIONS -------- 1. The left ventricular size is normal. 2. There is mild concentric left ventricular hypertrophy. 3. Overall left ventricular systolic function is normal with, an EF between 55 - 60 %. 4. Mild mitral regurgitation is present. 5. Moderate tricuspid regurgitation present. 6. There is mild pulmonary hypertension. 7. The right ventricular systolic pressure, as measured by Doppler, is 43.62mmHg. 8. There is no pericardial effusion. HOME CARE MUSIC THERAPIST: Chayo Belle RDCS
--- NOTE | 2021-08-26 11:26 | P.PN ---
Subjective Progress Note Date: 08/26/21 86-year-old male patient who was recently hospitalized from 07/13/2021 through 07/16/2021 with COVID-19 pneumonia. Patient was previously vaccinated with [employer] vaccine. Earlier in June she was hospitalized up [facility], subsequently was hospitalized again at [facility] and the above-mentioned dates for issues related to metabolic encephalopathy described as COVID fall and, and acute medical debility from COVID-19 pneumonia. At that time patient was still requiring oxygen at 3 L. Past medical history is significant for cerebrovascular stroke in 2006 with secondary difficulty in walking and balance. Other medical history includes hyperlipidemia, diabetes mellitus, and chronic kidney disease, unspecified. Patient was treated with supportive care, Remdesivir per protocol, Decadron, clinically he had improved and was discharged home in the care of his son and his [id number]. On 08/25/2021 patient was brought back to the emergency department for evaluation of shortness of breath, cough, and severe generalized weakness. Patient followed up with Dr. Kerr in the pulmonary clinic after his last hospitalization, he had recently finished his steroid taper. His [id number] reports patient being very fatigued, reports increasing sh ortness of breath, exertional dyspnea. The patient does not have congestion or fever. There is some reported mild swelling in his right lower extremity however but there is no calf tenderness. Patient has had poor appetite. He has been so weak that his son had to carry him to put him in a car to bring him to the emergency department. His chest x-ray in the emergency department showing prominent pulmonary vasculature, diffuse increased lung markings. 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 CTA chest has been completed and this was a suboptimal study without clear central pulmonary embolism, cannot entirely exclude segmental or subsegmental pulmonary emboli, pneumonia greater than 1 cm hilar or mediastinal lymph nodes. No pericardial effusion, there was prominent right and left pulmonary arteries suggesting underlying pulmonary artery hypertension there were persistent bilateral multifocal groundglass opacities and lower lung organizing consolidation consistent with ongoing or recurrent COVID-19 infection which is increased in bilateral lungs and suggesting worsening infection and or new alveolar and interstitial edema. Blood work reveals white blood cell count of 10.4, hemoglobin of 11.7, INR 1.1, d-dimer was 3.78, electrolytes were unremarkable, BUN was 25 creatinine is 1.19 lactic acid was 1.4, glucose was 207, AST was 32, ALT was 13 alkaline phosphatase was 85, troponin was 0.053, proBNP was 917, albumin was 2.6. Patient was retested for COVID-19 and was found to be negative. Blood pressure is currently stable, not requiring any vasopressor support, patient has been afebrile, he is currently on 3 L of oxygen, lung sounds revealed coarse bilateral crackles. He is hard of hearing, but he is able to answer some simple questions, appears very worn out and fatigued. But no acute distress. The patient is seen today 08/26/2021 in follow-up. He is currently resting comfortably in bed. Sitting up. No worsening shortness of breath, cough or congestion. He is undergoing a swallowing evaluation. He has been coughing with some liquids and occasional food. Suspect some possible microaspiration. He is maintaining O2 saturation in the 90s on 2 L nasal cannula. White count 10.4. Hemoglobin 10.4. Sodium 140. Potassium 5.0. Creatinine 1.21. Glucose 298. Calcium 9.0. Pro-calcitonin 0.14. TSH 1.2. Cortisol level 23. He is continued on Lovenox, Decadron, vitamin supplements. Objective - Vital Signs Vital signs: Vital Signs Temp 97.9 F 08/26/21 04:00 Pulse 70 08/26/21 04:00 Resp 20 08/26/21 04:00 BP 112/60 08/26/21 04:00 Pulse Ox 90 L 08/26/21 04:00 Intake & Output 08/25/21 08/26/21 08/26/21 18:59 06:59 18:59 Intake Total 100 Output Total 300 Balance -200 Weight 53.524 kg Intake: Oral 100 Output: Urine 300 Other: Voiding Method Urinal - Exam GENERAL EXAM: Alert, pleasant 86-year-old gentleman, on 2 L nasal cannula, comfortable in no apparent distress. HEAD: Normocephalic. EYES: Normal reaction of pupils, equal size. NOSE: Clear with pink turbinates. THROAT: Evidence of thrush. NECK: No masses, no JVD. CHEST: No chest wall deformity. LUNGS: Equal air entry with faint crackles in the posterior bases. CVS: S1 and S2 normal with no audible murmur, regular rhythm. ABDOMEN: No hepatosplenomegaly, normal bowel sounds, no guarding or rigidity. SPINE: No scoliosis or deformity SKIN: No rashes CENTRAL NERVOUS SYSTEM: No focal deficits, tone is normal in all 4 extremities. EXTREMITIES: There is no peripheral edema. No clubbing, no cyanosis. P eripheral pulses are intact. - Labs CBC & Chem 7: 08/26/21 05:47 08/26/21 05:47 Labs: Abnormal Lab Results - Last 24 Hours (Table) 08/25/21 08/25/21 08/25/21 Range/Units 06:40 06:40 16:44 RBC (4.30-5.90) m/uL Hgb (13.0-17.5) gm/dL Hct (39.0-53.0) % BUN (9-20) mg/dL Glucose (74-99) mg/dL POC Glucose (mg/dL) 149 H (75-99) mg/dL NT-Pro-B Natriuret Pep 917 H (0-450) pg/mL Procalcitonin 0.14 H (0.02-0.09) ng/mL 08/26/21 08/26/21 08/26/21 Range/Units 05:47 05:47 06:29 RBC 3.27 L (4.30-5.90) m/uL Hgb 10.4 L (13.0-17.5) gm/dL Hct 31.9 L (39.0-53.0) % BUN 29 H (9-20) mg/dL Glucose 298 H (74-99) mg/dL POC Glucose (mg/dL) 289 H (75-99) mg/dL NT-Pro-B Natriuret Pep (0-450) pg/mL Procalcitonin (0.02-0.09) ng/mL Assessment and Plan Assessment: 1 Weakness, general medical debility, worsening since COVID-19 infection in mid June, possibly related to encephalopathy, rule out possibility of infection and adrenal insufficieny. pro calcitonin 0.14. 2 Altered mental status, rule out possibility of underlying infection. Patient tested negative for COVID-19, chest x-ray and CT angiogram of the chest showed persistent increased pulmonary vascular markings. CT angiogram showed no clear evidence of central pulmonary embolism however this was a suboptimal study 3 Increased d-dimer, CT angiogram of the chest showed no clear evidence of a central PE, Dopplers of the lower extremity were negative for DVT 4 Recent hospitalization in mid June for COVID-19 pneumonia, discharged home on home oxygen 5 Diabetes mellitus type 2 6 Hyperlipidemia 7 Difficulty hearing 8 Poor appetite, difficulty swallowing, speech evaluation 9 Rule out possibility of adrenal insufficiency 10 Oropharyngeal candidiasis 11 General medical debility 12 Previous history of CVA 2006 with residual gait instability 13 History of cataracts Plan: The patient was seen and evaluated Currently stable from the pulmonary standpoint Speech evaluation pending Possible microaspiration Continue Decadron, Lovenox, vitamin supplement We need subacute rehab upon discharge I, the cosigning physician, performed a history & physical examination of the patient. Lungs sounds faint crackles in the posterior bases. Maintaining good O2 saturations in the 90s on 2 L/m per nasal cannula. I discussed the assessment and plan of care with my nurse practitioner, Tamar Lopes. I attest to the above note as dictated by her.
--- NOTE | 2021-08-26 12:13 | FL ---
EXAMINATION TYPE: FL barium swallow w video DATE OF EXAM: 08/26/2021 COMPARISON: NONE HISTORY: Abnormal bedside exam TECHNIQUE: Fluoroscopy. FINDINGS: Fluoroscopic guidance was provided for the procedure performed in conjunction with the [facility] pathology department. Please see complete report forthcoming from the Speech Pathology departmen t. Various consistencies from thin liquid to solids were administered. Fluoroscopy time not recorded Number of images: 0. There is gross aspiration with thin liquids. Maintained consistencies were without aspiration or pene tration. Poolings within the vallecula There was normal propulsion of the bolus. IMPRESSION: 1. Large amount of free spill aspiration with thin liquids.
--- NOTE | 2021-08-26 12:14 | XR ---
EXAMINATION TYPE: XR chest 1V DATE OF EXAM: 08/26/2021 COMPARISON: 08/25/2021 INDICATION: Postaspiration modified barium swallow TECHNIQUE: Single frontal view of the chest is obtained. FINDINGS: The heart size is normal. The pulmonary vasculature is prominent. Diffuse increased lung markings are present especially into the left lower lobe. Significant barium i nto the tracheobronchial tree however is not identified. This may have largely cleared with the patie nt's coughing. IMPRESSION: 1. Bibasilar infiltrates greater on the left can be compatible with aspiration pneumonia.
[2021-08-26 12:29] LABS: Glucose,Whole Blood 337 mg/dL (75-99)
--- NOTE | 2021-08-26 13:36 | P.PN ---
Subjective Progress Note Date: 08/26/21 Patient is a pleasant 86-year-old male was a discharged from the hospital after a prolonged hospital physician for Covid 19 pneumonia and patient was on systemic steroids which was recently discontinued. Patient was comfortable on 2 L of oxygen as an outpatient is is pretty status continued to get worse after discontinue additional steroids and the patient is presently on 5-6 L of oxygen and still short of breath. Patient lives with family that his son and [id number] who takes good care of the patient. Patient has been fatigued and family is unable to care for him. Patient not has not been eating well patient does have oral thrush as well. Because of worsening shortness of breath Covid 19 PCR test was repeated again and the patient is negative for Covid 19 but the patient had a CT of the chest which showed diffuse bilateral groundglass of [id number] along with some residual infiltrates from his previous Covid 19. Patient doesn't have any PE at least in the central vessels although subsegmental PE cannot be excluded as per the reading. Patient has some hilar and mediastinal lymphadenopathy. 08/26/2021 Patient evaluated today with his daughter at the bedside. Patient is currently on 5L NC, as a week ago he was doing well and was evaluated by pulmonary in the office and apparently has imaging at this time showed improvement of the Covid 19 pneumonia. Patient's negative for Covid 19 this admission. Her daughter he has been decreasing oral intake, not eating and drinking well. He does have oral thrush and presents with throat clearing and coughing with drinking. He is on nystatin. Doppler is negative for bilateral DVT. Patient is barium swallow today which showed large aspiration with thin liquids. Recommendations from speech therapy including mechanical soft diet, one-to-one assist, liquids via spoon only and half teaspoon amount with upright position with all by mouth intake. Patient is being followed closely by pulmonary. Labs today show hgb of 10.4, sodium 140, potassium 5, blood sugars are elevated in the high 200's to 300's. Vital signs today show temp of 96, heart rate 70, blood pressure 98/64, 91% on 2L NC. Chest xray today shows bibasilar infiltrates greater on the left can be compatible with aspiration pneumonia. ROS Constitutional: Denied fever, reports fatigue, weakness Cardio vascular: denied any chest pain, palpitations Gastrointestinal denied any nausea vomiting, denies diarrhea, decreased oral intake Pulmonary: Reports cough, shortness of breath at rest Neurologic denied any new focal deficits All inpatient medications were reviewed and appropriate changes in these medications as dictated in the interval history and assessment and plan. PHYSICAL EXAMINATION: GENERAL: The patient is alert and oriented x3, not in any acute distress. Thin built cachectic HEENT: Pupils are round and equally reacting to light. EOMI. No scleral icterus. No conjunctival pallor. Normocephalic, atraumatic. No pharyngeal erythema. No thyromegaly. Oral trush CARDIOVASCULAR: S1 and S2 present. No murmurs, rubs, or gallops. PULMONARY: Chest is clear to auscultation, no wheezing or crackles. ABDOMEN: Soft, nontender, nondistended, normoactive bowel sounds. No palpable organomegaly. MUSCULOSKELETAL: No joint swelling or deformity. EXTREMITIES: No cyanosis, clubbing, or pedal edema. NEUROLOGICAL: Gross neurological examination did not reveal any focal deficits. SKIN: No rashes. 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 Resumed on steroids. -Probable aspiration pneumonia, speech evaluation completed - diet adjusted -Elevated D-Dimer, CTA negative for PE, however there is persistant increased pulmonary vascular markings. -Oral thrush: Secondary to prolonged breathing treatments and systemic steroids, on nystatin swish and swallow -Generalized weakness, poor by mouth intake and moderate protein calorie malnutrition secondary to oral thrush and medical debility. -Recent hospitalization in mid June for COVID-19 pneumonia, requiring home oxygen -Type 2 diabetes mellitus with hyperglyemia exacerbated by steroids, adjust insulin today -Hyperlipidemia -Significant generalized weakness, will need subcate rehab on discharge -History of CVA/TIA with residual unsteady gait DVT prophylaxis: Lovenox Plan Continue with supportive care Repeat labs tomorrow Pulmonary following Will need subacute rehab on discharge Ok to transfer to med/surg Objective - Vital Signs Vital signs: Vital Signs Temp 97.9 F 08/26/21 04:00 Pulse 70 08/26/21 04:00 Resp 20 08/26/21 04:00 BP 112/60 08/26/21 04:00 Pulse Ox 90 L 08/26/21 04:00 Intake & Output 08/25/21 08/26/2108/26/21 18:59 06:59 18:59 Intake Total 100 Output Total 300 Balance -200 Weight 53.524 kg Intake: Oral 100 Output: Urine 300 Other: Voiding Method Urinal - Labs CBC & Chem 7: 08/26/21 05:47 08/26/21 05:47 Labs: Abnormal Lab Results - Last 24 Hours (Table) 08/25/21 08/25/21 08/25/21 Range/Units 06:40 06:40 16:44 RBC (4.30-5.90) m/uL Hgb (13.0-17.5) gm/dL Hct (39.0-53.0) % BUN (9-20) mg/dL Glucose (74-99) mg/dL POC Glucose (mg/dL) 149 H (75-99) mg/dL NT-Pro-B Natriuret Pep 917 H (0-450) pg/mL Procalcitonin 0.14 H (0.02-0.09) ng/mL 08/26/21 08/26/21 08/26/21 Range/Units 05:47 05:47 06:29 RBC 3.27 L (4.30-5.90) m/uL Hgb 10.4 L (13.0-17.5) gm/dL Hct 31.9 L (39.0-53.0) % BUN 29 H (9-20) mg/dL Glucose 298 H (74-99) mg/dL POC Glucose (mg/dL) 289 H (75-99) mg/dL NT-Pro-B Natriuret Pep (0-450) pg/mL Procalcitonin (0.02-0.09) ng/mL 08/26/21 Range/Units 12:27 RBC (4.30-5.90) m/uL Hgb (13.0-17.5) gm/dL Hct (39.0-53.0) % BUN (9-20) mg/dL Glucose (74-99) mg/dL POC Glucose (mg/dL) 337 H (75-99) mg/dL NT-Pro-B Natriuret Pep (0-450) pg/mL Procalcitonin (0.02-0.09) ng/mL Assessment and Plan Time with Patient: Greater than 30
[2021-08-26] MEDS: GENTAMICIN 0.1% CREAM 15 GM TUBE TOPICAL SCH (14:08)
[2021-08-26] MEDS: ENOXAPARIN 30 MG/0.3 ML SYRINGE SQ SCH (14:08)
[2021-08-26] MEDS ORDERED: FLUCONAZOLE 100 MG TAB PO ONE (14:13)
[2021-08-26 16:50] LABS: Glucose,Whole Blood 115 mg/dL (75-99)
[2021-08-26 20:04] LABS: Glucose,Whole Blood 278 mg/dL (75-99)
[2021-08-26] MEDS: TAMSULOSIN 0.4 MG CAP.ER.24H PO SCH (21:36)
[2021-08-26] MEDS: ATORVASTATIN 40 MG TAB PO SCH (21:36)
[2021-08-26] MEDS: INSULIN DETEMIR (LEVEMIR) 100 UNIT/ML SYR SQ SCH (21:36)
[2021-08-27 06:17] LABS: Glucose,Whole Blood 100 mg/dL (75-99)
[2021-08-27] MEDS: INSULIN ASPART (NovoLOG) 100 UNIT/ML VIAL SQ SCH ×7 (06:24→21:39)
[2021-08-27] MEDS: ENOXAPARIN 30 MG/0.3 ML SYRINGE SQ SCH (08:29)
[2021-08-27] MEDS: ZINC SULFATE 220 MG CAP PO SCH (08:29)
[2021-08-27] MEDS: ASPIRIN 81 MG PO SCH (08:29)
[2021-08-27] MEDS: FLUCONAZOLE 100 MG TAB PO SCH (08:29)
[2021-08-27] MEDS: ARTIFICIAL TEARS-HYPROMELLOSE DROPS 15 ML BTL BOTH EYES SCH ×2 (08:29→21:38)
[2021-08-27] MEDS: ASCORBIC ACID 500 MG TAB PO SCH ×2 (08:29→21:38)
[2021-08-27] MEDS: CHOLECALCIFEROL 25 MCG (1000 IU) TABLET PO SCH (08:29)
[2021-08-27] MEDS: dexAMETHasone 2 MG TAB PO SCH (08:29)
[2021-08-27] MEDS: GENTAMICIN 0.1% CREAM 15 GM TUBE TOPICAL SCH (08:31)
[2021-08-27 10:38] LABS: Basophils % (A) 0 %; Eosinophils % (A) 0 %; HCT 37.8 % (39.0-53.0); HGB 12.4 gm/dL (13.0-17.5); Hypochromasia Slight; Lymphocytes # (A) 1.5 k/uL (1.0-4.8); Lymphocytes % (A) 8 %; MCH 32.8 pg (25.0-35.0); MCHC 32.9 g/dL (31.0-37.0); MCV 99.8 fL (80.0-100.0); Macrocytosis Slight; Monocytes # (A) 0.6 k/uL (0-1.0); Monocytes % (A) 3 %; Neutrophils # (A) 16.5 k/uL (1.3-7.7); Neutrophils % (A) 88 %; Platelet Count 390 k/uL (150-450); RBC 3.78 m/uL (4.30-5.90); RDW 14.7 % (11.5-15.5); WBC 18.7 k/uL (3.8-10.6)
[2021-08-27] MEDS: SODIUM CHLORIDE 0.9% 1,000 ML IV SCH (11:18)
[2021-08-27 11:36] LABS: Glucose,Whole Blood 309 mg/dL (75-99)
[2021-08-27 14:47] LABS: Calcium 9.9 mg/dL (8.4-10.2); Potassium 5.1 mmol/L (3.5-5.1)
--- NOTE | 2021-08-27 14:56 | P.PN ---
Subjective Progress Note Date: 08/27/21 Patient is a pleasant 86-year-old male was a discharged from the hospital after a prolonged hospital physician for Covid 19 pneumonia and patient was on systemic steroids which was recently discontinued. Patient was comfortable on 2 L of oxygen as an outpatient is is pretty status continued to get worse after discontinue additional steroids and the patient is presently on 5-6 L of oxygen and still short of breath. Patient lives with family that his son and [id number] who takes good care of the patient. Patient has been fatigued and family is unable to care for him. Patient not has not been eating well patient does have oral thrush as well. Because of worsening shortness of breath Covid 19 PCR test was repeated again and the patient is negative for Covid 19 but the patient had a CT of the chest which showed diffuse bilateral groundglass of jlgp-fz-[id number] along with some residual infiltrates from his previous Covid 19. Patient doesn't have any PE at least in the central vessels although subsegmental PE cannot be excluded as per the reading. Patient has some hilar and mediastinal lymphadenopathy. 08/26/2021 Patient evaluated today with his daughter at the bedside. Patient is currently on 5L NC, as a week ago he was doing well and was evaluated by pulmonary in the office and apparently has imaging at this time showed improvement of the Covid 19 pneumonia. Patient's negative for Covid 19 this admission. Her daughter he has been decreasing oral intake, not eating and drinking well. He does have oral thrush and presents with throat clearing and coughing with drinking. He is on nystatin. Doppler is negative for bilateral DVT. Patient is barium swallow today which showed large aspiration with thin liquids. Recommendations from speech therapy including mechanical soft diet, one-to-one assist, liquids via spoon only and half teaspoon amount with upright position with all by mouth intake. Patient is being followed closely by pulmonary. Labs today show hgb of 10.4, sodium 140, potassium 5, blood sugars are elevated in the high 200's to 300's. Vital signs today show temp of 96, heart rate 70, blood pressure 98/64, 91% on 2L NC. Chest xray today shows bibasilar infiltrates greater on the left can be compatible with aspiration pneumonia. 08/27/2021 Patient is evaluated sitting up in the chair today, appears in much better spirits and overall states he is feeling better. Patient was seen today CT evaluation at the bedside. Patient is on 3 L nasal cannula with an oxygen saturation of 91-93%. We will order incentive spirometer. Patient's oral intake is minimal, added normal saline today for hydration. PT/OT consultation in place, to begin discharge planning, [facility] Patient is to follow closely by pulmonary services, he is on COVID Vitamins and PO Decadron. 11 today show a temperature 97.7, heart rate 71, blood pressure is 90/55, 95% oxygenation. White blood cell count today is 18.7, hemoglobin 12.4. Pending metabolic panel, repeat troponin is negative. Blood cultures are negative . ROS Constitutional: Denied fever, reports fatigue, weakness Cardio vascular: denied any chest pain, palpitations Gastrointestinal denied any nausea vomiting, denies diarrhea, decreased oral intake Pulmonary: Reports cough, shortness of breath at rest Neurologic denied any new focal deficits All inpatient medications were reviewed and appropriate changes in these medications as dictated in the interval history and assessment and plan. PHYSICAL EXAMINATION: GENERAL: The patient is alert and oriented x3, not in any acute distress. Thin built cachectic HEENT: Pupils are round and equally reacting to light. EOMI. No scleral icterus. No conjunctival pallor. Normocephalic, atraumatic. No pharyngeal erythema. No thyromegaly. Oral trush CARDIOVASCULAR: S1 and S2 present. No murmurs, rubs, or gallops. PULMONARY: Chest is clear to auscultation, no wheezing or crackles. ABDOMEN: Soft, nontender, nondistended, normoactive bowel sounds. No palpable organomegaly. MUSCULOSKELETAL: No joint swelling or deformity. EXTREMITIES: No cyanosis, clubbing, or pedal edema. NEUROLOGICAL: Gross neurological examination did not reveal any focal deficits. SKIN: No rashes. 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 Resumed on steroids. -Probable aspiration pneumonitis, speech evaluation completed - diet adjusted -Elevated D-Dimer, CTA negative for PE, however there is persistant increased pulmonary vascular markings. -Leukocytosis, due to infection, exacerbated by the addition of IV decadron. -Oral thrush: Secondary to prolonged breathing treatments and systemic steroids, on nystatin swish and swallow -Generalized weakness, poor by mouth intake and moderate protein calorie mal nutrition secondary to oral thrush and medical debility. -Recent hospitalization in mid June for COVID-19 pneumonia, requiring home oxygen -Type 2 diabetes mellitus with hyperglyemia exacerbated by steroids, adjust insulin today -Hyperlipidemia -Significant generalized weakness, will need subcate rehab on discharge -History of CVA/TIA with residual unsteady gait DVT prophylaxis: Lovenox Plan Added IV fluids today Continue with supportive care Repeat labs tomorrow Pulmonary following Will need subacute rehab on discharge Objective - Vital Signs Vital signs: Vital Signs Temp 97.7 F 08/27/21 11:11 Pulse 71 08/27/21 11:11 Resp 18 08/27/21 11:11 BP 90/55 08/27/21 11:11 Pulse Ox 95 08/27/21 11:11 Intake & Output 08/26/21 08/27/21 08/27/21 18:59 06:59 18:59 Intake Total 20 118 Output Total 100 125 Balance 20 -100 -7 Weight 52.617 kg Intake: Oral 20 118 Output: Urine 100 125 Other: Voiding Method Urinal Urinal Urinal Diaper Diaper # Voids 2 1 # Bowel Movements 1 - Labs CBC & Chem 7: 08/27/21 09:40 08/27/21 09:40 Labs: Abnormal Lab Results - Last 24 Hours (Table) 08/26/21 08/26/21 08/26/21 Range/Units 12:27 16:46 20:00 WBC (3.8-10.6) k/uL RBC (4.30-5.90) m/uL Hgb (13.0-17.5) gm/dL Hct (39.0-53.0) % Neutrophils # (1.3-7.7) k/uL POC Glucose (mg/dL) 337 H 115 H 278 H (75-99) mg/dL 08/27/21 08/27/21 Range/Units 06:07 09:40 WBC 18.7 H (3.8-10.6) k/uL RBC 3.78 L (4.30-5.90) m/uL Hgb 12.4 L (13.0-17.5) gm/dL Hct 37.8 L (39.0-53.0) % Neutrophils # 16.5 H (1.3-7.7) k/uL POC Glucose (mg/dL) 100 H (75-99) mg/dL Microbiology - Last 24 Hours (Table) 08/25/21 18:23 Blood Culture - Preliminary Blood No Growth after 24 hours 08/25/21 18:19 Blood Culture - Preliminary Blood No Growth after 24 hours
[2021-08-27 16:47] LABS: Glucose,Whole Blood 203 mg/dL (75-99)
--- NOTE | 2021-08-27 18:02 | P.PN ---
Subjective Progress Note Date: 08/27/21 08/27/2021, the patient is being seen for a follow-up. 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 He has also developed some acute lung injury related to COVID 19 infection and the patient is still requiring oxygen. As part of his treatment with systemic steroids, the patient developed also extensive oropharyngeal candidiasis which affected his ability to swallow. On today's evaluation, he is doing well. 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 I was able to communicate with him. The patient is doing well. He has no specific complaints. No respiratory difficulties. Oxidation is improved and the patient is currently on 2 L of oxygen by nasal cannula. He was treated with Diflucan regarding the oropharyngeal candidiasis and there is significant improvement in the thrush and the patient is able to swallow on today's evaluation. He remains on Decadron 6 mg by mouth daily. He remains on Levemir insulin 10 units along with NovoLog with meals and a sliding scale coverage. No altered mentation. No agitation. No signs of any respiratory distress. The blood work essentially within acceptable ranges. White cell count of 18.7 with a hemoglobin of 12.4. Blood glucose is at 203, BUN 38 with a creatinine of 1.2. Troponin is 0.018. Objective - Vital Signs Vital signs: Vital Signs Temp 97.8 F 08/27/21 16:26 Pulse 64 08/27/21 16:26 Resp 19 08/27/21 16:26 BP 102/53 08/27/21 16:26 Pulse Ox 95 08/27/21 16:26 Intake & Output 08/26/21 08/27/21 08/27/21 18:59 06:59 18:59 Intake Total 20 478 Output Total 100 125 Balance 20 -100 353 Weight 52.617 kg Intake: Oral 20 478 Output: Urine 100 125 Other: Voiding Method Urinal Urinal Urinal Diaper Diaper # Voids 2 1 1 # Bowel Movements 1 - Exam GENERAL EXAM: Alert, pleasant 86-year-old gentleman, on 2 L nasal cannula, comfortable in no apparent distress. HEAD: Normocephalic. EYES: Normal reaction of pupils, equal size. NOSE: Clear with pink turbinates. THROAT: Evidence of thrush. NECK: No masses, no JVD. CHEST: No chest wall deformity. LUNGS: Equal air entry with faint crackles in the posterior bases. CVS: S1 and S2 normal with no audible murmur, regular rhythm. ABDOMEN: No hepatosplenomegaly, normal bowel sounds, no guarding or rigidity. SPINE: No scoliosis or deformity SKIN: No rashes CENTRAL NERVOUS SYSTEM: No focal deficits, tone is normal in all 4 extremities. EXTREMITIES: There is no peripheral edema. No clubbing, no cyanosis. Peripheral pulses are intact. - Labs CBC & Chem 7: 08/27/21 09:40 08/27/21 09:40 Labs: Abnormal Lab Results - Last 24 Hours (Table) 08/26/21 08/27/21 08/27/21 Range/Units 20:00 06:07 09:40 WBC 18.7 H (3.8-10.6) k/uL RBC 3.78 L (4.30-5.90) m/uL Hgb 12.4 L (13.0-17.5) gm/dL Hct 37.8 L (39.0-53.0) % Neutrophils # 16.5 H (1.3-7.7) k/uL Chloride (98-107) mmol/L BUN (9-20) mg/dL Glucose (74-99) mg/dL POC Glucose (mg/dL) 278 H 100 H (75-99) mg/dL 08/27/21 08/27/21 08/27/21 Range/Units 09:40 11:35 16:45 WBC (3.8-10.6) k/uL RBC (4.30-5.90) m/uL Hgb (13.0-17.5) gm/dL Hct (39.0-53.0) % Neutrophils # (1.3-7.7) k/uL Chloride 108 H (98-107) mmol/L BUN 38 H (9-20) mg/dL Glucose 199 H (74-99) mg/dL POC Glucose (mg/dL) 309 H 203 H (75-99) mg/dL Microbiology - Last 24 Hours (Table) 08/25/21 18:23 Blood Culture - Preliminary Blood No Growth after 24 hours 08/25/21 18:19 Blood Culture - Preliminary Blood No Growth after 24 hours Assessment and Plan Plan: 1 post covariant fatigue, and generalized Weakness, general medical debility,. The patient was infected with COVID-19 infection in mid June, his condition is stable for now. 2 Altered mental status, rule out possibility of underlying infection. Patient tested negative for COVID-19, chest x-ray and CT angiogram of the chest showed persistent increased pulmonary vascular markings. CT angiogram showed no clear evidence of central pulmonary embolism however this was a suboptimal study, but he says is improved 3 Increased d-dimer, CT angiogram of the chest showed no clear evidence of a central PE, Dopplers of the lower extremity were negative for DVT 4 acute hypoxic respiratory failure second to COVID 19. The patient continues to production dependent 2 L per minute cannula. 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
[2021-08-27 20:36] LABS: Glucose,Whole Blood 307 mg/dL (75-99)
[2021-08-27] MEDS: ATORVASTATIN 40 MG TAB PO SCH (21:38)
[2021-08-27] MEDS: TAMSULOSIN 0.4 MG CAP.ER.24H PO SCH (21:38)
[2021-08-27] MEDS: INSULIN DETEMIR (LEVEMIR) 100 UNIT/ML SYR SQ SCH (21:40)
--- NOTE | 2021-08-28 05:49 | P.CONS ---
History of Present Illness - Chief Complaint Medical debility - History of Present Illness I had the opportunity to see patient for inpatient rehab consultation with regard to medical debility. Patient admitted to [facility] August 25 with shortness of breath, CHF exacerbation. Recent Covid positive pneumonia. Seen by pulmonary, Dr. Kerr. Seen by Dr. Altamirano. Chest x-rays followed for bibasilar infiltrates. Venous Doppler negative for right or left DVT. Chest CTA with persistent groundglass appearance and consistent with Covid pneumonia. His started therapies. PT reports minimal assistance for bed mobility and gait 10 feet with roller walker and minimal moderate assistance to stand and transfer. OT reports minimal assistance for upper dressing and functional mobility/transfers and moderate assistance for lower dressing, bathing, toileting. Previous functional history as elicited from patient: Complicated by very hard of hearing. 86-year-old right-handed white male who is lives in one floor home alone. Describes independent with cooking and laundry but does not drive. Independent with standing shower. Review of Systems Review of systems: ENT: Hard of hearing bilateral. Eyes: Denies discharge or photophobia. Cardiac: Denies chest pain or palpitation. Pulmonary: Mild to moderate shortness of breath. Gastrointestinal: Denies nausea, emesis, constipation, diarrhea. Genitourinary: Denies discharge or frequency. Musculoskeletal: Denies muscle or bone aches. Neurologic: Generalized weakness. Endocrine: Denies shakes or sweats. Oncology: Denies cancers. Dermatologic: Denies rash, itching, pruritus. ALLERGY/immunology: Denies sneezes, rashes. Past Medical History Past Medical History: CVA/TIA Additional Past Medical History / Comment(s): 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, cataracts History of Any Multi-Drug Resistant Organisms: None Reported Past Surgical History: No Surgical Hx Reported Past Anesthesia/Blood Transfusion Reactions: No Reported Reaction Past Psychological History: No Psychological Hx Reported Smoking Status: Never smoker Past Alcohol Use History: None Reported Past Drug Use History: None Reported Medications and Allergies Home Medications Medication Instructions Recorded Confirmed Type Allopurinol [Zyloprim] 100 mg PO DAILY 07/13/21 08/25/21 History Artificial Tears-Hypromellose 1 drop BOTH EYES BID 07/13/21 08/25/21 History [Artificial Tear Drops] Aspirin EC [Ecotrin Low Dose] 81 mg PO DAILY 07/13/21 08/25/21 History Atorvastatin [Lipitor] 40 mg PO HS 07/13/21 08/25/21 History Cholecalciferol [Vitamin D3 (25 25 mcg PO DAILY 07/13/21 08/25/21 History Mcg = 1000 Iu)] Gentamicin 0.1% Cream 1 applic TOPICAL DAILY 08/18/21 08/25/21 History Ascorbic Acid [Vitamin C] 500 mg PO BID 08/25/21 08/25/21 History Insulin Aspart [NovoLOG Flexpen] See Protocol SQ AC-TID 08/25/21 08/25/21 History Allergies Allergy/AdvReac Type Severity Reaction Status Date / Time No Known Allergies Allergy Verified 08/25/21 10:10 Physical Exam Vitals: Vital Signs Temp Pulse Resp BP BP Pulse Ox 08/28/21 02:00 97.5 F L 59 L 18 107/54 92 L 08/27/21 19:46 97.6 F 61 16 109/57 95 08/27/21 16:26 97.8 F 64 19 102/53 95 08/27/21 11:11 97.7 F 71 18 90/55 95 08/27/21 08:25 97.8 F 66 20 103/53 96 Intake and Output 08/27/21 08/27/21 08/28/21 14:59 22:59 06:59 Intake Total 358 360 Output Total 125 Balance 233 360 Intake: Oral 358 360 Output: Urine 125 Other: Voiding Method Urinal Urinal Diaper Diaper # Voids 1 Weight 52.617 kg 53.5 kg Skin: Atrophic, intact. General: Thin build and comfortable appearance. Head: Normocephalic, atraumatic. Eyes: Symmetric. Pupils equal round. Ears: Symmetric. Hearing within normal limits. Mouth: Clear. Neck: Supple. Carotid without bruit. Cardiac: Regular rate and rhythm. Lungs: Clear anteriorly and posteriorly. Abdomen: Soft active nontender. Extremities: Normal tone. Thin limbs. Neurological: Mental status: Alert, cooperative, pleasant. Cranial nerves: Symmetric facial tone and trapezius. Motor: Active elevation off of bed all 4 limbs. Sensation: Intact throughout. DTRs: Symmetric and equal throughout. Mobility: Requires physical assist for bed mobility. Results CBC & Chem 7: 08/27/21 09:40 08/27/21 09:40 Labs: Abnormal Lab Results - Last 24 Hours (Table) 08/27/21 08/27/21 08/27/21 Range/Units 06:07 09:40 09:40 WBC 18.7 H (3.8-10.6) k/uL RBC 3.78 L (4.30-5.90) m/uL Hgb 12.4 L (13.0-17.5) gm/dL Hct 37.8 L (39.0-53.0) % Neutrophils # 16.5 H (1.3-7.7) k/uL Chloride 108 H (98-107) mmol/L BUN 38 H (9-20) mg/dL Glucose 199 H (74-99) mg/dL POC Glucose (mg/dL) 100 H (75-99) mg/dL 08/27/21 08/27/21 08/27/21 Range/Units 11:35 16:45 19:56 WBC (3.8-10.6) k/uL RBC (4.30-5.90) m/uL Hgb (13.0-17.5) gm/dL Hct (39.0-53.0) % Neutrophils # (1.3-7.7) k/uL Chloride (98-107) mmol/L BUN (9-20) mg/dL Glucose (74-99) mg/dL POC Glucose (mg/dL) 309 H 203 H 307 H (75-99) mg/dL Microbiology - Last 24 Hours (Table) 08/25/21 18:23 Blood Culture - Preliminary Blood No Growth after 48 hours 08/25/21 18:19 Blood Culture - Preliminary Blood No Growth after 48 hours Assessment and Plan (1) Aspiration pneumonia Current Visit: Yes Status: Acute Code(s): J69.0 - PNEUMONITIS DUE TO INHALATION OF FOOD AND VOMIT SNOMED Code(s): 184582424 (2) Generalized weakness Current Visit: Yes Status: Acute Code(s): R53.1 - WEAKNESS SNOMED Code(s): 14302257 (3) COVID-19 Current Visit: No Status: Acute Code(s): U07.1 - COVID-19 SNOMED Code(s): 491520337 Plan: Comments and plan: At this time safety concerns are noted. Patient however with significant endurance issues and would anticipate tolerate a full inpatient rehab program. Also, unsure diagnosis we'll fit insurance criteria for inpatien t rehab. Will investigate.
[2021-08-28 06:07] LABS: Glucose,Whole Blood 83 mg/dL (75-99)
[2021-08-28] MEDS: INSULIN ASPART (NovoLOG) 100 UNIT/ML VIAL SQ SCH ×8 (06:20→21:28)
[2021-08-28] MEDS: SODIUM CHLORIDE 0.9% 1,000 ML IV SCH ×3 (06:37→18:23)
[2021-08-28] MEDS: CHOLECALCIFEROL 25 MCG (1000 IU) TABLET PO SCH (07:56)
[2021-08-28] MEDS: ENOXAPARIN 30 MG/0.3 ML SYRINGE SQ SCH (07:56)
[2021-08-28] MEDS: ZINC SULFATE 220 MG CAP PO SCH (07:56)
[2021-08-28] MEDS: ASPIRIN 81 MG PO SCH (07:56)
[2021-08-28] MEDS: FLUCONAZOLE 100 MG TAB PO SCH (07:56)
[2021-08-28] MEDS: dexAMETHasone 2 MG TAB PO SCH (07:56)
[2021-08-28] MEDS: ASCORBIC ACID 500 MG TAB PO SCH ×2 (07:56→21:28)
[2021-08-28] MEDS: GENTAMICIN 0.1% CREAM 15 GM TUBE TOPICAL SCH (07:57)
[2021-08-28] MEDS: ARTIFICIAL TEARS-HYPROMELLOSE DROPS 15 ML BTL BOTH EYES SCH ×2 (07:58→21:28)
[2021-08-28 10:59] LABS: Basophils % (A) 0 %; Eosinophils % (A) 0 %; HCT 34.9 % (39.0-53.0); HGB 11.2 gm/dL (13.0-17.5); Hypochromasia Slight; Lymphocytes # (A) 1.4 k/uL (1.0-4.8); Lymphocytes % (A) 8 %; MCH 31.5 pg (25.0-35.0); MCHC 32.1 g/dL (31.0-37.0); MCV 98.1 fL (80.0-100.0); Mean Platelet Volume 9.8; Monocytes # (A) 0.5 k/uL (0-1.0); Monocytes % (A) 3 %; Neutrophils # (A) 15.1 k/uL (1.3-7.7); Neutrophils % (A) 88 %; Platelet Count 398 k/uL (150-450); RBC 3.56 m/uL (4.30-5.90); RDW 14.7 % (11.5-15.5); WBC 17.1 k/uL (3.8-10.6)
[2021-08-28 11:15] LABS: Calcium 8.9 mg/dL (8.4-10.2); Total Bilirubin 0.7 mg/dL (0.2-1.3)
[2021-08-28 11:20] LABS: Albumin 2.7 g/dL (3.5-5.0); Potassium 4.8 mmol/L (3.5-5.1); Total Protein 5.7 g/dL (6.3-8.2)
[2021-08-28 12:19] LABS: Glucose,Whole Blood 220 mg/dL (75-99)
--- NOTE | 2021-08-28 16:07 | P.PN ---
Subjective Progress Note Date: 08/28/21 Principal diagnosis: Post COVID fatigue, generalized weakness, general medical debility, altered mental status, improved 86-year-old male patient who was recently hospitalized from 07/13/2021 through 07/16/2021 with COVID-19 pneumonia. Patient was previously vaccinated with Aaron nson [employer] vaccine. Earlier in June she was hospitalized up [facility], subsequently was hospitalized again at [facility] and the above-mentioned dates for issues related to metabolic encephalopathy described as COVID fall and, and acute medical debility from [place] VID-19 pneumonia. At that time patient was still requiring oxygen at 3 L. Past medical history is significant for cerebrovascular stroke in 2006 with secondary difficulty in walking and balance. Other medical history includes hyperlipidemia, diabetes mellitus, and chronic kidney disease, unspecified. Patient was treated with supportive care, Remdesivir per protocol, Decadron, clinically he had improved and was discharged home in the care of his son and his [id number]. On 08/25/2021 patient was brought back to the emergency department for evaluation of shortness of breath, cough, and severe generalized weakness. Patient followed up with Dr. Kerr in the pulmonary clinic after his last hospitalization, he had recently finished his steroid taper. His [id number] reports patient being very fatigued, reports increasing shortness of breath, exertional dyspnea. The patient does not have congestion or fever. There is some reported mild swelling in his right lower extremity however but there is no calf tenderness. Patient has had poor appetite. He has been so weak that his son had to carry him to put him in a car to bring him to the emergency department. His chest x-ray in the emergency department showing prominent pulmonary vasculature, diffuse increased lung markings. 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 CTA chest has been completed and this was a suboptimal study without clear central pulmonary embolism, cannot entirely exclude segmental or subsegmental pulmonary emboli, pneumonia greater than 1 cm hilar or mediastinal lymph nodes. No pericardial effusion, there was prominent right and left pulmonary arteries suggesting underlying pulmonary artery hypertension there were persistent bilateral multifocal groundglass opacities and lower lung organizing consolidation consistent with ongoing or recurrent COVID-19 infection which is increased in bilateral lungs and suggesting worsening infection and or new alveolar and interstitial edema. Blood work reveals white blood cell count of 10.4, hemoglobin of 11.7, INR 1.1, d-dimer was 3.78, electrolytes were unremarkable, BUN was 25 creatinine is 1.19 lactic acid was 1.4, glucose was 207, AST was 32, ALT was 13 alkaline phosphatase was 85, troponin was 0.053, proBNP was 917, albumin was 2.6. Patient was retested for COVID-19 and was found to be negative. Blood pressure is currently stable, not requiring any vasopressor support, patient has been afebrile, he is currently on 3 L of oxygen, lung sounds revealed coarse bilateral crackles. He is hard of hearing, but he is able to answer some simple questions, appears very worn out and fatigued. But no acute distress. On 08/28/2021 when we patient seen in follow-up on selective care unit, he is sitting up in a recliner, he looks much more awake and alert, interactive, in no acute distress, he is breathing comfortably, he is on 2 L of oxygen pulse ox is 96%, afebrile, hemodynamically stable. Vital signs have been stable, no acute events overnight, no fever or chills, no complaints of chest discomfort, no worsening dyspnea. Lung sounds reveal faint crackles at posterior bases, no peripheral edema. Chest x-ray from 08/26/2021 shows bibasilar infiltrates greater on the left. Modified barium swallow showed large amount of free spill aspiration with thin liquids. Patient continues on a dysphagia level III diet with chopped solids and nectar thick liquids with one-to-one supervision and aspiration precautions. He also continues on fluconazole for oral pharyngeal candidiasis. No acute events overnight, today's labs have been reviewed, his white blood cell count is improving is down to 17.1, hemoglobin is 11.2, serum sodium is 140, potassium is 4.8, chloride is 111, CO2 is 25, B1 is 38 creatinine is 1.07, LFTs are within normal limits, he was retested for COVID-19 and was found to be negative, cortisol level was 23, and TSH was within normal limits at 1.260 Objective - Vital Signs Vital signs: Vital Signs Temp 97.2 F L 08/28/21 07:34 Pulse 60 08/28/21 07:34 Resp 18 08/28/21 07:34 BP 123/60 08/28/21 07:34 Pulse Ox 96 08/28/21 07:34 Intake & Output 08/27/21 08/28/21 08/28/21 18:59 06:59 18:59 Intake Total 478 240 510 Output Total 125 100 Balance 353 140 510 Weight 52.617 kg 53.5 kg Intake: IV 10 Invasive Line 1 10 Oral 478 240 500 Output: Urine 125 100 Other: Voiding Method Urinal Urinal Diaper Diaper # Voids 1 1 - Exam GENERAL EXAM: Awake and alert 86-year-old white male, on 2 L of oxygen, sitting up in the chair, looking more awake, and interactive on today's exam, in no acute distress HEAD: Normocephalic/atraumatic. EYES: Normal reaction of pupils, equal size. Conjunctiva pink, sclera white. NOSE: Clear with pink turbinates. THROAT: No erythema or exudates. NECK: No masses, no JVD, no thyroid enlargement, no adenopathy. CHEST: No chest wall deformity. Symmetrical expansion. LUNGS: Equal air entry with diffuse bibasilar crackles CVS: Regular rate and rhythm, normal S1 and S2, no gallops, no murmurs, no rubs ABDOMEN: Soft, nontender. No hepatosplenomegaly, normal bowel sounds, no guarding or rigidity. EXTREMITIES: No clubbing, no edema, no cyanosis, 2+ pulses and upper and lower extremities. MUSCULOSKELETAL: Muscle strength and tone normal. SPINE: No scoliosis or deformity SKIN: No rashes CENTRAL NERVOUS SYSTEM: Awake and alert, No focal deficits, tone is normal in all 4 extremities. - Labs CBC & Chem 7: 08/28/21 09:45 08/28/21 09:45 Labs: Abnormal Lab Results - Last 24 Hours (Table) 08/27/21 08/27/21 08/28/21 Range/Units 16:45 19:56 09:45 WBC 17.1 H (3.8-10.6) k/uL RBC 3.56 L (4.30-5.90) m/uL Hgb 11.2 L (13.0-17.5) gm/dL Hct 34.9 L (39.0-53.0) % Neutrophils # 15.1 H (1.3-7.7) k/uL Chloride (98-107) mmol/L BUN (9-20) mg/dL POC Glucose (mg/dL) 203 H 307 H (75-99) mg/dL Total Protein (6.3-8.2) g/dL Albumin (3.5-5.0) g/dL 08/28/21 08/28/21 Range/Units 09:45 12:16 WBC (3.8-10.6) k/uL RBC (4.30-5.90) m/uL Hgb (13.0-17.5) gm/dL Hct (39.0-53.0) % Neutrophils # (1.3-7.7) k/uL Chloride 111 H (98-107) mmol/L BUN 38 H (9-20) mg/dL POC Glucose (mg/dL) 220 H (75-99) mg/dL Total Protein 5.7 L (6.3-8.2) g/dL Albumin 2.7 L (3.5-5.0) g/dL Microbiology - Last 24 Hours (Table) 08/25/21 18:23 Blood Culture - Preliminary Blood No Growth after 48 hours 08/25/21 18:19 Blood Culture - Preliminary Blood No Growth after 48 hours Assessment and Plan Plan: Assessment: #1. Post-COVID fatigue and weakness, general medical debility, worsening since COVID-19 infection in mid June, possibly related to encephalopathy, rule out possibility of infection and adrenal insufficiency #2. Altered mental status, rule out possibility of underlying infection. Patient tested negative for COVID-19, chest x-ray and CT angiogram of the chest showed persistent increased pulmonary vascular markings. CT angiogram showed no clear evidence of central pulmonary embolism however this was a suboptimal study. His mentation is improved, and he is currently more awake and alert, interactive, #3. Increased d-dimer, CT angiogram of the chest showed no clear evidence of a central PE, we will obtain lower extremity Dopplers #4. Recent hospitalization in mid June for COVID-19 pneumonia, discharged home on home oxygen #5. Diabetes mellitus type 2 #6. Hyperlipidemia #7. Difficulty hearing #8. Poor appetite, difficulty swallowing, we'll obtain speech evaluation #9. Rule out possibility of adrenal insufficiency #10. Oropharyngeal candidiasis, currently on Diflucan #11. General medical debility #12. 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 History of cataracts #14. Dysphagia, patient had free spill aspiration during modified barium swa llow evaluation on 12 over 2020, currently on modified diet with dysphagia 3 diet and nectar thick liquids Plan: Clinical patient is improving, vital signs have been stable He is sitting up in a chair, more awake, more interactive In no acute distress, no difficulty breathing, No fever or chills Stable for discharge to subacute rehab or inpatient rehab from pulmonary perspective I performed a history & physical examination of the patient and discussed their management with my nurse practitioner, Rand Anthony. I reviewed the nurse practitioner's note and agree with the documented findings and plan of care. Lung sounds are positive for diffuse crackles throughout the lung gonzáles. The findings and the impression was discussed with the patient. I attest to the documentation by the nurse practitioner. Time with Patient: Less than 30
[2021-08-28 16:25] LABS: Glucose,Whole Blood 399 mg/dL (75-99)
[2021-08-28] MEDS ORDERED: INSULIN ASPART (NovoLOG) 100 UNIT/ML VIAL SQ ONE (18:18)
[2021-08-28 20:42] LABS: Glucose,Whole Blood 330 mg/dL (75-99)
[2021-08-28] MEDS: INSULIN DETEMIR (LEVEMIR) 100 UNIT/ML SYR SQ SCH (21:28)
[2021-08-28] MEDS: TAMSULOSIN 0.4 MG CAP.ER.24H PO SCH (21:28)
[2021-08-28] MEDS: ATORVASTATIN 40 MG TAB PO SCH (21:28)
[2021-08-29 02:21] LABS: Glucose,Whole Blood 224 mg/dL (75-99)
[2021-08-29] MEDS: SODIUM CHLORIDE 0.9% 1,000 ML IV SCH (06:17)
[2021-08-29 06:27] LABS: Glucose,Whole Blood 182 mg/dL (75-99)
[2021-08-29] MEDS: INSULIN ASPART (NovoLOG) 100 UNIT/ML VIAL SQ SCH ×7 (06:55→20:51)
[2021-08-29] MEDS: ASCORBIC ACID 500 MG TAB PO SCH ×2 (08:38→20:52)
[2021-08-29] MEDS: ASPIRIN 81 MG PO SCH (08:38)
[2021-08-29] MEDS: ZINC SULFATE 220 MG CAP PO SCH (08:38)
[2021-08-29] MEDS: CHOLECALCIFEROL 25 MCG (1000 IU) TABLET PO SCH (08:38)
[2021-08-29] MEDS: ARTIFICIAL TEARS-HYPROMELLOSE DROPS 15 ML BTL BOTH EYES SCH ×2 (08:38→20:51)
[2021-08-29] MEDS: ENOXAPARIN 30 MG/0.3 ML SYRINGE SQ SCH (08:39)
[2021-08-29] MEDS: dexAMETHasone 2 MG TAB PO SCH (08:39)
[2021-08-29] MEDS: FLUCONAZOLE 100 MG TAB PO SCH (08:39)
[2021-08-29] MEDS: GENTAMICIN 0.1% CREAM 15 GM TUBE TOPICAL SCH (08:39)
[2021-08-29 11:28] LABS: Basophils % (A) 0 %; Eosinophils % (A) 0 %; HCT 33.3 % (39.0-53.0); Hypochromasia Slight; Lymphocytes # (A) 1.5 k/uL (1.0-4.8); Lymphocytes % (A) 9 %; MCH 32.3 pg (25.0-35.0); MCHC 32.9 g/dL (31.0-37.0); Monocytes # (A) 0.6 k/uL (0-1.0); Monocytes % (A) 4 %; Neutrophils # (A) 14.9 k/uL (1.3-7.7); Neutrophils % (A) 87 %; Platelet Count 392 k/uL (150-450); RDW 14.9 % (11.5-15.5); WBC 17.1 k/uL (3.8-10.6)
[2021-08-29 11:32] LABS: Glucose,Whole Blood 150 mg/dL (75-99)
--- NOTE | 2021-08-29 13:52 | P.PN ---
Subjective Progress Note Date: 08/28/21 Patient is a pleasant 86-year-old male was a discharged from the hospital after a prolonged hospital physician for Covid 19 pneumonia and patient was on systemic steroids which was recently discontinued. Patient was comfortable on 2 L of oxygen as an outpatient is is pretty status continued to get worse after discontinue additional steroids and the patient is presently on 5-6 L of oxygen and still short of breath. Patient lives with family that his son and [id number] who takes good care of the patient. Patient has been fatigued and family is unable to care for him. Patient not has not been eating well patient does have oral thrush as well. Because of worsening shortness of breath Covid 19 PCR test was repeated again and the patient is negative for Covid 19 but the patient had a CT of the chest which showed diffuse bilateral groundglass of [id number] along with some residual infiltrates from his previous Covid 19. Patient doesn't have any PE at least in the central vessels although subsegmental PE cannot be excluded as per the reading. Patient has some hilar and mediastinal lymphadenopathy. 08/26/2021 Patient evaluated today with his daughter at the bedside. Patient is currently on 5L NC, as a week ago he was doing well and was evaluated by pulmonary in the office and apparently has imaging at this time showed improvement of the Covid 19 pneumonia. Patient's negative for Covid 19 this admission. Her daughter he has been decreasing oral intake, not eating and drinking well. He does have oral thrush and presents with throat clearing and coughing with drinking. He is on nystatin. Doppler is negative for bilateral DVT. Patient is barium swallow today which showed large aspiration with thin liquids. Recommendations from speech therapy including mechanical soft diet, one-to-one assist, liquids via spoon only and half teaspoon amount with upright position with all by mouth intake. Patient is being followed closely by pulmonary. Labs today show hgb of 10.4, sodium 140, potassium 5, blood sugars are elevated in the high 200's to 300's. Vital signs today show temp of 96, heart rate 70, blood pressure 98/64, 91% on 2L NC. Chest xray today shows bibasilar infiltrates greater on the left can be compatible with aspiration pneumonia. 08/27/2021 Patient is evaluated sitting up in the chair today, appears in much better spirits and overall states he is feeling better. Patient was seen today CT evaluation at the bedside. Patient is on 3 L nasal cannula with an oxygen saturation of 91-93%. We will order incentive spirometer. Patient's oral intake is minimal, added normal saline today for hydration. PT/OT consultation in place, to begin discharge planning, family would like [facility] rehab. Patient is to follow closely by pulmonary services, he is on COVID Vitamins and PO Decadron. 11 today show a temperature 97.7, heart rate 71, blood pressure is 90/55, 95% oxygenation. White blood cell count today is 18.7, hemoglobin 12.4. Pending metabolic panel, repeat troponin is negative. Blood cultures are negative . 08/28/2021 Patient evaluated today sitting up in the chair with his family at the bedside. Denies no new complaints. Oxygenation is improving he is down to 2l nc. Cleared by pulmonary today, pending discharge to IP rehab once a bed is found for patient. Continues on Dysphagia diet with nectar thick liquids. WBC today is 17.1, hgb 11.2, sodium 140, potassium 4.8, blood sugars in the 300s, BUN 28, creatinine 1.07. Albumin 2.7. Vitals today Temp 97.9, heart rate 68, blood pressure 121/67. Doing well with IS. ROS Constitutional: Denied fever, reports fatigue, weakness Cardio vascular: denied any chest pain, palpitations Gastrointestinal: denied any nausea vomiting, denies diarrhea, decreased oral intake Pulmonary: Reports cough, shortness of breath at rest Neurologic denied any new focal deficits All inpatient medications were reviewed and appropriate changes in these medications as dictated in the interval history and assessment and plan. PHYSICAL EXAMINATION: GENERAL: The patient is alert and oriented x3, not in any acute distress. Thin built cachectic HEENT: Pupils are round and equally reacting to light. EOMI. No scleral icterus. No conjunctival pallor. Normocephalic, atraumatic. No pharyngeal erythema. No thyromegaly. Oral trush CARDIOVASCULAR: S1 and S2 present. No murmurs, rubs, or gallops. PULMONARY: Chest is clear to auscultation, no wheezing or crackles. ABDOMEN: Soft, nontender, nondistended, normoactive bowel sounds. No palpable organomegaly. MUSCULOSKELETAL: No joint swelling or deformity. EXTREMITIES: No cyanosis, clubbing, or pedal edema. NEUROLOGICAL: Gross neurological examination did not reveal any focal deficits. SKIN: No rashes. 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 -Probable aspiration pneumonitis, speech evaluation completed - diet adjusted -Elevated D-Dimer, CTA negative for PE, however there is persistant increased p ulmonary vascular markings. -Leukocytosis, due to infection, exacerbated by the addition of IV decadron. -Oral thrush: Secondary to prolonged breathing treatments and systemic steroids, on nystatin swish and swallow -Generalized weakness, poor by mouth intake and moderate protein calorie malnutrition secondary to oral thrush and medical debility. -Recent hospitalization in mid June for COVID-19 pneumonia, requiring home oxygen -Type 2 diabetes mellitus with hyperglyemia exacerbated by steroids, adjust insulin today -Hyperlipidemia -Significant generalized weakness, will need subcate rehab on discharge -History of CVA/TIA with residual unsteady gait DVT prophylaxis: Lovenox Plan Begin to slowly decrease Decadron Continue with supportive care Repeat labs tomorrow Pulmonary cleared Pending placement at IP rehab SW following Objective - Vital Signs Vital signs: Vital Signs Temp 97.2 F L 08/28/21 07:34 Pulse 60 08/28/21 07:34 Resp 18 08/28/21 07:34 BP 123/60 08/28/21 07:34 Pulse Ox 96 08/28/21 07:34 Intake & Output 08/27/21 08/28/21 08/28/21 18:59 06:59 18:59 Intake Total 478 240 10 Output Total 125 100 Balance 353 140 10 Weight 52.617 kg 53.5 kg Intake: IV 10 Invasive Line 1 10 Oral 478 240 0 Output: Urine 125 100 Other: Voiding Method Urinal Urinal Diaper Diaper # Voids 1 1 - Labs CBC & Chem 7: 08/29/21 10:41 08/28/21 09:45 Labs: Abnormal Lab Results - Last 24 Hours (Table) 08/27/21 08/27/21 08/27/21 Range/Units 09:40 16:45 19:56 WBC (3.8-10.6) k/uL RBC (4.30-5.90) m/uL Hgb (13.0-17.5) gm/dL Hct (39.0-53.0) % Neutrophils # (1.3-7.7) k/uL Chloride 108 H (98-107) mmol/L BUN 38 H (9-20) mg/dL Glucose 199 H (74-99) mg/dL POC Glucose (mg/dL) 203 H 307 H (75-99) mg/dL Total Protein (6.3-8.2) g/dL Albumin (3.5-5.0) g/dL 08/28/21 08/28/21 Range/Units 09:45 09:45 WBC 17.1 H (3.8-10.6) k/uL RBC 3.56 L (4.30-5.90) m/uL Hgb 11.2 L (13.0-17.5) gm/dL Hct 34.9 L (39.0-53.0) % Neutrophils # 15.1 H (1.3-7.7) k/uL Chloride 111 H (98-107) mmol/L BUN 38 H (9-20) mg/dL Glucose (74-99) mg/dL POC Glucose (mg/dL) (75-99) mg/dL Total Protein 5.7 L (6.3-8.2) g/dL Albumin 2.7 L (3.5-5.0) g/dL Microbiology - Last 24 Hours (Table) 08/25/21 18:23 Blood Culture - Preliminary Blood No Growth after 48 hours 08/25/21 18:19 Blood Culture - Preliminary Blood No Growth after 48 hours
--- NOTE | 2021-08-29 15:02 | P.PN ---
Subjective Progress Note Date: 08/29/21 Patient is a pleasant 86-year-old male was a discharged from the hospital after a prolonged hospital physician for Covid 19 pneumonia and patient was on systemic steroids which was recently discontinued. Patient was comfortable on 2 L of oxygen as an outpatient is is pretty status continued to get worse after discontinue additional steroids and the patient is presently on 5-6 L of oxygen and still short of breath. Patient lives with family that his son and [id number] who takes good care of the patient. Patient has been fatigued and family is unable to care for him. Patient not has not been eating well patient does have oral thrush as well. Because of worsening shortness of breath Covid 19 PCR test was repeated again and the patient is negative for Covid 19 but the patient had a CT of the chest which showed diffuse bilateral groundglass of [id number] along with some residual infiltrates from his previous Covid 19. Patient doesn't have any PE at least in the central vessels although subsegmental PE cannot be excluded as per the reading. Patient has some hilar and mediastinal lymphadenopathy. 08/26/2021 Patient evaluated today with his daughter at the bedside. Patient is currently on 5L NC, as a week ago he was doing well and was evaluated by pulmonary in the office and apparently has imaging at this time showed improvement of the Covid 19 pneumonia. Patient's negative for Covid 19 this admission. Her daughter he has been decreasing oral intake, not eating and drinking well. He does have oral thrush and presents with throat clearing and coughing with drinking. He is on nystatin. Doppler is negative for bilateral DVT. Patient is barium swallow today which showed large aspiration with thin liquids. Recommendations from speech therapy including mechanical soft diet, one-to-one assist, liquids via spoon only and half teaspoon amount with upright position with all by mouth intake. Patient is being followed closely by pulmonary. Labs today show hgb of 10.4, sodium 140, potassium 5, blood sugars are elevated in the high 200's to 300's. Vital signs today show temp of 96, heart rate 70, blood pressure 98/64, 91% on 2L NC. Chest xray today shows bibasilar infiltrates greater on the left can be compatible with aspiration pneumonia. 08/27/2021 Patient is evaluated sitting up in the chair today, appears in much better spirits and overall states he is feeling better. Patient was seen today CT evaluation at the bedside. Patient is on 3 L nasal cannula with an oxygen saturation of 91-93%. We will order incentive spirometer. Patient's oral intake is minimal, added normal saline today for hydration. PT/OT consultation in place, to begin discharge planning, family would like [facility]. Patient is to follow closely by pulmonary services, he is on COVID Vitamins and PO Decadron. 11 today show a temperature 97.7, heart rate 71, blood pressure is 90/55, 95% oxygenation. White blood cell count today is 18.7, hemoglobin 12.4. Pending metabolic panel, repeat troponin is negative. Blood cultures are negative . 08/28/2021 Patient evaluated today sitting up in the chair with his family at the bedside. Denies no new complaints. Oxygenation is improving he is down to 2l nc. Cleared by pulmonary today, pending discharge to IP rehab once a bed is found for patient. Continues on Dysphagia diet with nectar thick liquids. WBC today is 17.1, hgb 11.2, sodium 140, potassium 4.8, blood sugars in the 300s, BUN 28, creatinine 1.07. Albumin 2.7. Vitals today Temp 97.9, heart rate 68, blood pressure 121/67. Doing well with IS. 08/29/2021 Patient up in chair with family at the bedside. Continues to improve, lungs are clear today. Vitals: T-97.6, heart rate 68, blood pressure 123/60, 95% 2L NC. Labs: WBC 17.1, Hgb 11.0. Intake and Output inaccurate, there is no oral liquid intake documented. IV fluids seemed to have helped as patient appears more hydrated and his color looks better today. Pending SW for inpatient rehab placement on discharge which will most likely happen on Tuesday, unfortuneatly, otherwise he is stable medically on 2L NC. Continue with current diet recommendations. ROS Constitutional: Denied fever, reports fatigue, weakness Cardio vascular: denied any chest pain, palpitations Gastrointestinal: denied any nausea vomiting, denies diarrhea, decreased oral intake Pulmonary: Reports cough, shortness of breath at rest Neurologic denied any new focal deficits All inpatient medications were reviewed and appropriate changes in these medications as dictated in the interval history and assessment and plan. PHYSICAL EXAMINATION: GENERAL: The patient is alert and oriented x3, not in any acute distress. Thin built cachectic HEENT: Pupils are round and equally reacting to light. EOMI. No scleral icterus. No conjunctival pallor. Normocephalic, atraumatic. No pharyngeal erythema. No thyromegaly. Oral trush CARDIOVASCULAR: S1 and S2 present. No murmurs, rubs, or gallops. PULMONARY: Chest is clear to auscultation, no wheezing or crackles. ABDOMEN: Soft, nontender, nondistended, normoactive bowel sounds. No palpable organomegaly. MUSCULOSKELETAL: No joint swelling or deformity. EXTREMITIES: No cyanosis, clubbing, or pedal edema. NEUROLOGICAL: Gross neurological examination did not reveal any focal deficits. SKIN: No rashes. 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 on 2L NC. -Probable aspiration pneumonitis, speech evaluation completed - diet adjusted -Elevated D-Dimer, CTA negative for PE, however there is persistant increased pulmonary vascular markings. -Leukocytosis, due to infection, stable the last 3 days, repeat tomorrow -Oral thrush: Secondary to prolonged breathing treatments and systemic steroids, on diflucan, improving -Generalized weakness, poor by mouth intake and moderate protein calorie malnutrition secondary to oral thrush and medical debility. -Recent hospitalization in mid June for COVID-19 pneumonia, requiring home oxygen -Type 2 diabetes mellitus with hyperglyemia exacerbated by steroids, -Hyperlipidemia -Significant generalized weakness, will need subcate rehab on discharge -History of CVA/TIA with residual unsteady gait DVT prophylaxis: Lovenox Plan Begin to slowly decrease Decadron Continue with supportive care Repeat labs tomorrow Pulmonary cleared Pending placement at IP rehab SW following Objective - Vital Signs Vital signs: Vital Signs Temp 97.6 F 08/29/21 13:10 Pulse 68 08/29/21 13:10 Resp 18 08/29/21 13:10 BP 123/60 08/29/21 13:10 Pulse Ox 95 08/29/21 13:10 Intake & Output 08/28/21 08/29/21 08/29/21 18:59 06:59 18:59 Intake Total 870 0 Output Total 200 200 125 Balance 670 -200 -125 Weight 54 kg Intake: IV 10 Invasive Line 1 10 Oral 860 0 Output: Urine 200 200 125 Other: # Voids 1 # Bowel Movements 1 - Labs CBC & Chem 7: 08/29/21 10:41 08/28/21 09:45 Labs: Abnormal Lab Results - Last 24 Hours (Table) 08/28/21 08/28/21 08/29/21 Range/Units 16:24 20:22 02:09 WBC (3.8-10.6) k/uL RBC (4.30-5.90) m/uL Hgb (13.0-17.5) gm/dL Hct (39.0-53.0) % Neutrophils # (1.3-7.7) k/uL POC Glucose (mg/dL) 399 H 330 H 224 H (75-99) mg/dL 08/29/21 08/29/21 08/29/21 Range/Units 05:44 10:41 11:30 WBC 17.1 H (3.8-10.6) k/uL RBC 3.40 L (4.30-5.90) m/uL Hgb 11.0 L (13.0-17.5) gm/dL Hct 33.3 L (39.0-53.0) % Neutrophils # 14.9 H (1.3-7.7) k/uL POC Glucose (mg/dL) 182 H 150 H (75-99) mg/dL Microbiology - Last 24 Hours (Table) 08/25/21 18:23 Blood Culture - Preliminary Blood No Growth after 72 hours 08/25/21 18:19 Blood Culture - Preliminary Blood No Growth after 72 hours
--- NOTE | 2021-08-29 15:14 | P.PN ---
Subjective Progress Note Date: 08/29/21 08/29/2021, the patient is doing well. No specific complaints. Tolerating diet. Able to swallow. He is on Diflucan for oropharyngeal candidiasis which was quite extensive. He is on 2 L of oxygen by nasal cannula. On room air oxygen, the pulse ox is around 88%. He remains on Lovenox 30 mg subcu for DVT prophylaxis. He is on insulin in the form of Levemir insulin 20 units at bedtime in addition to NovoLog 2 units with meals and a sliding scale coverage. The family is at the bedside and they're looking for a rehabilitation towards [facility]. Meanwhile, the blood work from today shows a white second of 17, hemoglobin 11 and a platelet count is at 392. He is extremity hard of hearing. He is able to sit up on a chair. His communicating with his family. No labored breathing. No signs of any respiratory distress. Objective - Vital Signs Vital signs: Vital Signs Temp 97.6 F 08/29/21 13:10 Pulse 68 08/29/21 13:10 Resp 18 08/29/21 13:10 BP 123/60 08/29/21 13:10 Pulse Ox 95 08/29/21 13:10 Intake & Output 08/28/21 08/29/21 08/29/21 18:59 06:59 18:59 Intake Total 870 0 Output Total 200 200 125 Balance 670 -200 -125 Weight 54 kg Intake: IV 10 Invasive Line 1 10 Oral 860 0 Output: Urine 200 200 125 Other: # Voids 1 # Bowel Movements 1 - Exam GENERAL EXAM: Alert, pleasant 86-year-old gentleman, on 2 L nasal cannula, comfortable in no apparent distress. HEAD: Normocephalic. EYES: Normal reaction of pupils, equal size. NOSE: Clear with pink turbinates. THROAT: Evidence of thrush. NECK: No masses, no JVD. CHEST: No chest wall deformity. LUNGS: Equal air entry with faint crackles in the posterior bases. CVS: S1 and S2 normal with no audible murmur, regular rhythm. ABDOMEN: No hepatosplenomegaly, normal bowel sounds, no guarding or rigidity. SPINE: No scoliosis or deformity SKIN: No rashes CENTRAL NERVOUS SYSTEM: No focal deficits, tone is normal in all 4 extremities. EXTREMITIES: There is no peripheral edema. No clubbing, no cyanosis. Peripheral pulses are intact. - Labs CBC & Chem 7: 08/29/21 10:41 08/28/21 09:45 Labs: Abnormal Lab Results - Last 24 Hours (Table) 08/28/21 08/28/21 08/29/21 Range/Units 16:24 20:22 02:09 WBC (3.8-10.6) k/uL RBC (4.30-5.90) m/uL Hgb (13.0-17.5) gm/dL Hct (39.0-53.0) % Neutrophils # (1.3-7.7) k/uL POC Glucose (mg/dL) 399 H 330 H 224 H (75-99) mg/dL 08/29/21 08/29/21 08/29/21 Range/Units 05:44 10:41 11:30 WBC 17.1 H (3.8-10.6) k/uL RBC 3.40 L (4.30-5.90) m/uL Hgb 11.0 L (13.0-17.5) gm/dL Hct 33.3 L (39.0-53.0) % Neutrophils # 14.9 H (1.3-7.7) k/uL POC Glucose (mg/dL) 182 H 150 H (75-99) mg/dL Microbiology - Last 24 Hours (Table) 08/25/21 18:23 Blood Culture - Preliminary Blood No Growth after 72 hours 08/25/21 18:19 Blood Culture - Preliminary Blood No Growth after 72 hours Assessment and Plan Plan: 1 post covariant fatigue, and generalized Weakness, general medical debility,. The patient was infected with COVID-19 infection in mid June, his condition is stable for now. 2 Altered mental status, rule out possibility of underlying infection. Patient tested negative for COVID-19, chest x-ray and CT angiogram of the chest showed persistent increased pulmonary vascular markings. CT angiogram showed no clear evidence of central pulmonary embolism however this was a suboptimal study, mental status select his baseline 3 Increased d-dimer, CT angiogram of the chest showed no clear evidence of a central PE, Dopplers of the lower extremity were negative for DVT 4 acute hypoxic respiratory failure second to COVID 19. The patient continues to production dependent 2 L per minute cannula. Note that the patient had a Recent hospitalization in mid June for COVID-19 pneumonia, discharged home on home oxygen 5 Diabetes mellitus type 2 6 Hyperlipidemia 7 Difficulty hearing 8 Poor appetite, difficulty swallowing, speech evaluation 9 Rule out possibility of adrenal insufficiency 10 Oropharyngeal candidiasis 11 General medical debility 12 Previous history of CVA 2006 with residual gait instability 13 History of cataracts 14 extensive oropharyngeal candidiasis currently on Diflucan Plan: The patient was seen and evaluated, he is clinically improved and is stable for now Oropharyngeal candidiasis. With Diflucan and has recovered and this has improved the patient's swallow Condition is stable and swallowing is improved Oxygen 2 L per minute nasal cannula, room air oxygen is around 88% We need subacute rehab upon discharge as the patient seems to be quite debilitated and he would benefit from rehabilitation.
[2021-08-29 16:20] LABS: Glucose,Whole Blood 257 mg/dL (75-99)
[2021-08-29 20:17] LABS: Glucose,Whole Blood 260 mg/dL (75-99)
[2021-08-29] MEDS ORDERED: INSULIN ASPART (NovoLOG) 100 UNIT/ML VIAL SQ ONE (20:50)
[2021-08-29] MEDS: TAMSULOSIN 0.4 MG CAP.ER.24H PO SCH (20:52)
[2021-08-29] MEDS: ATORVASTATIN 40 MG TAB PO SCH (20:52)
[2021-08-29] MEDS: INSULIN DETEMIR (LEVEMIR) 100 UNIT/ML SYR SQ SCH (22:31)
[2021-08-30 01:35] LABS: Glucose,Whole Blood 69 mg/dL (75-99)
[2021-08-30 01:58] LABS: Glucose,Whole Blood 104 mg/dL (75-99)
[2021-08-30] MEDS: SODIUM CHLORIDE 0.9% 1,000 ML IV SCH ×2 (05:56→17:39)
[2021-08-30 07:23] LABS: Glucose,Whole Blood 116 mg/dL (75-99)
[2021-08-30] MEDS: INSULIN ASPART (NovoLOG) 100 UNIT/ML VIAL SQ SCH ×7 (08:49→22:58)
[2021-08-30] MEDS: ASCORBIC ACID 500 MG TAB PO SCH ×2 (09:03→22:59)
[2021-08-30] MEDS: ASPIRIN 81 MG PO SCH (09:03)
[2021-08-30] MEDS: ZINC SULFATE 220 MG CAP PO SCH (09:03)
[2021-08-30] MEDS: CHOLECALCIFEROL 25 MCG (1000 IU) TABLET PO SCH (09:03)
[2021-08-30] MEDS: dexAMETHasone 4 MG TAB PO SCH (09:03)
[2021-08-30] MEDS: ARTIFICIAL TEARS-HYPROMELLOSE DROPS 15 ML BTL BOTH EYES SCH ×2 (09:04→22:59)
[2021-08-30] MEDS: GENTAMICIN 0.1% CREAM 15 GM TUBE TOPICAL SCH (09:04)
[2021-08-30] MEDS: ENOXAPARIN 30 MG/0.3 ML SYRINGE SQ SCH (09:04)
[2021-08-30] MEDS: FLUCONAZOLE 100 MG TAB PO SCH (09:04)
[2021-08-30 09:29] LABS: Basophils # (A) 0.05 X 10*3/uL (0.00-0.10); Basophils % (A) 0.3 %; Eosinophils # (A) 0 X 10*3/uL (0.04-0.35); Eosinophils % (A) 0 %; HCT 30.4 % (39.6-50.0); HGB 9.2 g/dL (13.0-17.0); Lymphocytes # (A) 1.24 X 10*3/uL (0.90-5.00); Lymphocytes % (A) 7.9 %; MCH 30.4 pg (27.0-32.0); MCHC 30.3 g/dL (32.0-37.0); MCV 100.3 fL (80.0-97.0); Mean Platelet Volume 11.5 fL (9.5-12.2); Monocytes # (A) 0.73 X 10*3/uL (0.20-1.00); Monocytes % (A) 4.6 %; Neutrophils # (A) 13.16 X 10*3/uL (1.80-7.70); Neutrophils % (A) 83.9 %; Platelet Count 346 X 10*3/uL (140-440); RBC 3.03 X 10*6/uL (4.40-5.60); RDW 15.1 % (11.5-14.5)
[2021-08-30 09:47] LABS: African American GFR (CKD) 77.5 (60.0-200.0); Anion Gap 12.6 mmol/L (10.00-18.00); BUN/Creat Ratio 28.7 Ratio (12.00-20.00); Blood Urea Nitrogen 28.7 mg/dL (9.0-27.0); Calcium 8.2 mg/dL (8.7-10.3); Carbon Dioxide 20.4 mmol/L (20.0-27.5); Non-African American GFR(CKD) 66.9 (60.0-200.0); Potassium 4.5 mmol/L (3.5-5.5)
[2021-08-30 11:28] LABS: Glucose,Whole Blood 210 mg/dL (75-99)
--- NOTE | 2021-08-30 14:57 | P.PN ---
Subjective Progress Note Date: 08/30/21 Patient is a pleasant 86-year-old male was a discharged from the hospital after a prolonged hospital physician for Covid 19 pneumonia and patient was on systemic steroids which was recently discontinued. Patient was comfortable on 2 L of oxygen as an outpatient is is pretty status continued to get worse after discontinue additional steroids and the patient is presently on 5-6 L of oxygen and still short of breath. Patient lives with family that his son and [id number] who takes good care of the patient. Patient has been fatigued and family is unable to care for him. Patient not has not been eating well patient does have oral thrush as well. Because of worsening shortness of breath Covid 19 PCR test was repeated again and the patient is negative for Covid 19 but the patient had a CT of the chest which showed diffuse bilateral groundglass of [id number] along with some residual infiltrates from his previous Covid 19. Patient doesn't have any PE at least in the central vessels although subsegmental PE cannot be excluded as per the reading. Patient has some hilar and mediastinal lymphadenopathy. 08/26/2021 Patient evaluated today with his daughter at the bedside. Patient is currently on 5L NC, as a week ago he was doing well and was evaluated by pulmonary in the office and apparently has imaging at this time showed improvement of the Covid 19 pneumonia. Patient's negative for Covid 19 this admission. Her daughter he has been decreasing oral intake, not eating and drinking well. He does have oral thrush and presents with throat clearing and coughing with drinking. He is on nystatin. Doppler is negative for bilateral DVT. Patient is barium swallow today which showed large aspiration with thin liquids. Recommendations from speech therapy including mechanical soft diet, one-to-one assist, liquids via spoon only and half teaspoon amount with upright position with all by mouth intake. Patient is being followed closely by pulmonary. Labs today show hgb of 10.4, sodium 140, potassium 5, blood sugars are elevated in the high 200's to 300's. Vital signs today show temp of 96, heart rate 70, blood pressure 98/64, 91% on 2L NC. Chest xray today shows bibasilar infiltrates greater on the left can be compatible with aspiration pneumonia. 08/27/2021 Patient is evaluated sitting up in the chair today, appears in much better spirits and overall states he is feeling better. Patient was seen today CT evaluation at the bedside. Patient is on 3 L nasal cannula with an oxygen saturation of 91-93%. We will order incentive spirometer. Patient's oral intake is minimal, added normal saline today for hydration. PT/OT consultation in place, to begin discharge planning, family would like [facility] rehab. Patient is to follow closely by pulmonary services, he is on COVID Vitamins and PO Decadron. 11 today show a temperature 97.7, heart rate 71, blood pressure is 90/55, 95% oxygenation. White blood cell count today is 18.7, hemoglobin 12.4. Pending metabolic panel, repeat troponin is negative. Blood cultures are negative . 08/28/2021 Patient evaluated today sitting up in the chair with his family at the bedside. Denies no new complaints. Oxygenation is improving he is down to 2l nc. Cleared by pulmonary today, pending discharge to IP rehab once a bed is found for patient. Continues on Dysphagia diet with nectar thick liquids. WBC today is 17.1, hgb 11.2, sodium 140, potassium 4.8, blood sugars in the 300s, BUN 28, creatinine 1.07. Albumin 2.7. Vitals today Temp 97.9, heart rate 68, blood pressure 121/67. Doing well with IS. 08/29/2021 Patient up in chair with family at the bedside. Continues to improve, lungs are clear today. Vitals: T-97.6, heart rate 68, blood pressure 123/60, 95% 2L NC. Labs: WBC 17.1, Hgb 11.0. Intake and Output inaccurate, there is no oral liquid intake documented. IV fluids seemed to have helped as patient appears more hydrated and his color looks better today. Pending SW for inpatient rehab placement on discharge which will most likely happen on Tuesday, unfortuneatly, otherwise he is stable medically on 2L NC. Continue with current diet recommendations. 08/30/2021 Patient evaluated today sitting up in the chair with family. He looks better every day, he is smiling and appears well. Family states he was able to play a game of cribbage today. They had brought homemade chicken noodle soup and assisting the patient to eat. However, noticed that patient did cough after some of the bites. Instructed family that his diet is ordered as chopped and to only give solids not mixed with the broth. Acknowledged understanding. Continues to make clinical improvement, down to 1L NC with an ox saturation of 95%, blood pressure 145/74, heart rate 65, afebrile. Labs today show WBC of 15.70, hgb 9.2, sodium 140, potassium 4.5, sugars in the 100s. Pending SW tomorrow for update on DC plan to IP rehab. ROS Constitutional: Denied fever, reports weakness Cardio vascular: denied any chest pain, palpitations Gastrointestinal: denied any nausea vomiting, denies diarrhea, decreased oral intake Pulmonary: Reports cough, shortness of breath at rest Neurologic denied any new focal deficits All inpatient medications were reviewed and appropriate changes in these medications as dictated in the interval history and assessment and plan. PHYSICAL EXAMINATION: GENERAL: The patient is alert and oriented x3, not in any acute distress. Thin built cachectic HEENT: Pupils are round and equally reacting to light. EOMI. No scleral icterus. No conjunctival pallor. Normocephalic, atraumatic. No pharyngeal erythema. No thyromegaly. Oral trush CARDIOVASCULAR: S1 and S2 present. No murmurs, rubs, or gallops. PULMONARY: Chest is clear to auscultation, no wheezing or crackles. ABDOMEN: Soft, nontender, nondistended, normoactive bowel sounds. No palpable organomegaly. MUSCULOSKELETAL: No joint swelling or deformity. EXTREMITIES: No cyanosis, clubbing, or pedal edema. NEUROLOGICAL: Gross neurological examination did not reveal any focal deficits. SKIN: No rashes. 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 on 1L NC. -Probable aspiration pneumonitis, speech evaluation completed - diet adjusted, clinically improving -Elevated D-Dimer, CTA negative for PE, however there is persistant increased pulmonary vascular markings. -Leukocytosis, due to infection, stable the last 3 days, repeat tomorrow -Oral thrush: Secondary to prolonged breathing treatments and systemic steroids, on diflucan, improving -Generalized weakness, poor by mouth intake and moderate protein calorie malnutrition secondary to oral thrush and medical debility. -Recent hospitalization in mid June for COVID-19 pneumonia, requiring home oxygen -Type 2 diabetes mellitus with hyperglyemia exacerbated by steroids, -Hyperlipidemia -Significant generalized weakness, will need subcate rehab on discharge -History of CVA/TIA with residual unsteady gait DVT prophylaxis: Lovenox Plan Begin to slowly decrease Decadron Continue with supportive care Repeat labs tomorrow Pulmonary cleared Pending placement at IP rehab SW following Objective - Vital Signs Vital signs: Vital Signs Temp 98.6 F 08/30/21 13:51 Pulse 65 08/30/21 13:51 Resp 17 08/30/21 13:51 BP 145/74 08/30/21 13:51 Pulse Ox 95 08/30/21 13:51 Intake & Output 08/29/21 08/30/21 08/30/21 18:59 06:59 18:59 Intake Total 10 Output Total 125 Balance -115 Intake: IV 10 Invasive Line 2 10 Oral 0 Output: Urine 125 Other: Voiding Method Urinal Diaper # Voids 4 # Bowel Movements 1 - Labs CBC & Chem 7: 08/30/21 03:48 08/30/21 03:47 Labs: Abnormal Lab Results - Last 24 Hours (Table) 08/29/21 08/29/21 08/30/21 Range/Units 16:19 20:15 01:34 WBC (4.50-10.00) X 10*3/uL RBC (4.40-5.60) X 10*6/uL Hgb (13.0-17.0) g/dL Hct (39.6-50.0) % MCV (80.0-97.0) fL MCHC (32.0-37.0) g/dL RDW (11.5-14.5) % Immature Gran # (0.00-0.04) X 10*3/uL Neutrophils # (1.80-7.70) X 10*3/uL Eosinophils # (0.04-0.35) X 10*3/uL BUN (9.0-27.0) mg/dL BUN/Creatinine Ratio (12.00-20.00) Ratio Glucose (70-110) mg/dL POC Glucose (mg/dL) 257 H 260 H 69 L (75-99) mg/dL Calcium (8.7-10.3) mg/dL 08/30/21 08/30/21 08/30/21 Range/Units 01:57 03:47 03:48 WBC 15.70 H (4.50-10.00) X 10*3/uL RBC 3.03 L (4.40-5.60) X 10*6/uL Hgb 9.2 L (13.0-17.0) g/dL Hct 30.4 L (39.6-50.0) % MCV 100.3 H (80.0-97.0) fL MCHC 30.3 L (32.0-37.0) g/dL RDW 15.1 H (11.5-14.5) % Immature Gran # 0.52 H (0.00-0.04) X 10*3/uL Neutrophils # 13.16 H (1.80-7.70) X 10*3/uL Eosinophils # 0 L (0.04-0.35) X 10*3/uL BUN 28.7 H (9.0-27.0) mg/dL BUN/Creatinine Ratio 28.70 H (12.00-20.00) Ratio Glucose 137 H (70-110) mg/dL POC Glucose (mg/dL) 104 H (75-99) mg/dL Calcium 8.2 L (8.7-10.3) mg/dL 08/30/21 08/30/21 Range/Units 07:21 11:26 WBC (4.50-10.00) X 10*3/uL RBC (4.40-5.60) X 10*6/uL Hgb (13.0-17.0) g/dL Hct (39.6-50.0) % MCV (80.0-97.0) fL MCHC (32.0-37.0) g/dL RDW (11.5-14.5) % Immature Gran # (0.00-0.04) X 10*3/uL Neutrophils # (1.80-7.70) X 10*3/uL Eosinophils # (0.04-0.35) X 10*3/uL BUN (9.0-27.0) mg/dL BUN/Creatinine Ratio (12.00-20.00) Ratio Glucose (70-110) mg/dL POC Glucose (mg/dL) 116 H 210 H (75-99) mg/dL Calcium (8.7-10.3) mg/dL Microbiology - Last 24 Hours (Table) 08/25/21 18:23 Blood Culture - Preliminary Blood No Growth after 96 hours 08/25/21 18:19 Blood Culture - Preliminary Blood No Growth after 96 hours
--- NOTE | 2021-08-30 16:24 | P.PN ---
Subjective Progress Note Date: 08/30/21 08/30/2021, the patient is doing well. No new complaints. Able to swallow. Currently on Diflucan completing a seven-day course. Remains on Decadron. Remains on Levemir insulin 20 units along with sliding scale insulin coverage. Alert and awake. Communicating with family members. Awaiting transfer [facility] in the [place] area. No other complaints otherwise for now. Family is at the bedside. Blood work from today showed a white cell count of 15.7 with a hemoglobin 9.2, BUN is 28 with a creatinine of 1.0, sodium is 140, and the patient's blood sugars at present. No signs of any respiratory distress. No altered mentation. No confusion. His hard of hearing. Very difficult to clinic a with this patient. Objective - Vital Signs Vital signs: Vital Signs Temp 98.6 F 08/30/21 13:51 Pulse 65 08/30/21 13:51 Resp 17 08/30/21 13:51 BP 145/74 08/30/21 13:51 Pulse Ox 95 08/30/21 13:51 Intake & Output 08/29/21 08/30/21 08/30/21 18:59 06:59 18:59 Intake Total 10 0 Output Total 125 Balance -115 0 Intake: IV 10 Invasive Line 2 10 Oral 0 0 Output: Urine 125 Other: Voiding Method Urinal Diaper # Voids 4 # Bowel Movements 1 - Exam GENERAL EXAM: Alert, pleasant 86-year-old gentleman, on 2 L nasal cannula, comfortable in no apparent distress. HEAD: Normocephalic. EYES: Normal reaction of pupils, equal size. NOSE: Clear with pink turbinates. THROAT: Evidence of thrush. NECK: No masses, no JVD. CHEST: No chest wall deformity. LUNGS: Equal air entry with faint crackles in the posterior bases. CVS: S1 and S2 normal with no audible murmur, regular rhythm. ABDOMEN: No hepatosplenomegaly, normal bowel sounds, no guarding or rigidity. SPINE: No scoliosis or deformity SKIN: No rashes CENTRAL NERVOUS SYSTEM: No focal deficits, tone is normal in all 4 extremities. EXTREMITIES: There is no peripheral edema. No clubbing, no cyanosis. Peripheral pulses are intact. - Labs CBC & Chem 7: 08/30/21 03:48 08/30/21 03:47 Labs: Abnormal Lab Results - Last 24 Hours (Table) 08/29/21 08/30/21 08/30/21 Range/Units 20:15 01:34 01:57 WBC (4.50-10.00) X 10*3/uL RBC (4.40-5.60) X 10*6/uL Hgb (13.0-17.0) g/dL Hct (39.6-50.0) % MCV (80.0-97.0) fL MCHC (32.0-37.0) g/dL RDW (11.5-14.5) % Immature Gran # (0.00-0.04) X 10*3/uL Neutrophils # (1.80-7.70) X 10*3/uL Eosinophils # (0.04-0.35) X 10*3/uL BUN (9.0-27.0) mg/dL BUN/Creatinine Ratio (12.00-20.00) Ratio Glucose (70-110) mg/dL POC Glucose (mg/dL) 260 H 69 L 104 H (75-99) mg/dL Calcium (8.7-10.3) mg/dL 08/30/21 08/30/21 08/30/21 Range/Units 03:47 03:48 07:21 WBC 15.70 H (4.50-10.00) X 10*3/uL RBC 3.03 L (4.40-5.60) X 10*6/uL Hgb 9.2 L (13.0-17.0) g/dL Hct 30.4 L (39.6-50.0) % MCV 100.3 H (80.0-97.0) fL MCHC 30.3 L (32.0-37.0) g/dL RDW 15.1 H (11.5-14.5) % Immature Gran # 0.52 H (0.00-0.04) X 10*3/uL Neutrophils # 13.16 H (1.80-7.70) X 10*3/uL Eosinophils # 0 L (0.04-0.35) X 10*3/uL BUN 28.7 H (9.0-27.0) mg/dL BUN/Creatinine Ratio 28.70 H (12.00-20.00) Ratio Glucose 137 H (70-110) mg/dL POC Glucose (mg/dL) 116 H (75-99) mg/dL Calcium 8.2 L (8.7-10.3) mg/dL 08/30/21 Range/Units 11:26 WBC (4.50-10.00) X 10*3/uL RBC (4.40-5.60) X 10*6/uL Hgb (13.0-17.0) g/dL Hct (39.6-50.0) % MCV (80.0-97.0) fL MCHC (32.0-37.0) g/dL RDW (11.5-14.5) % Immature Gran # (0.00-0.04) X 10*3/uL Neutrophils # (1.80-7.70) X 10*3/uL Eosinophils # (0.04-0.35) X 10*3/uL BUN (9.0-27.0) mg/dL BUN/Creatinine Ratio (12.00-20.00) Ratio Glucose (70-110) mg/dL POC Glucose (mg/dL) 210 H (75-99) mg/dL Calcium (8.7-10.3) mg/dL Microbiology - Last 24 Hours (Table) 08/25/21 18:23 Blood Culture - Preliminary Blood No Growth after 96 hours 08/25/21 18:19 Blood Culture - Preliminary Blood No Growth after 96 hours Assessment and Plan Plan: 1 post covariant fatigue, and generalized Weakness, general medical debility,. The patient was infected with COVID-19 infection in mid June, his condition is stable for now. 2 Altered mental status, rule out possibility of underlying infection. Patient tested negative for COVID-19, chest x-ray and CT angiogram of the chest showed persistent increased pulmonary vascular markings. CT angiogram showed no clear evidence of central pulmonary embolism however this was a suboptimal study, mental status select his baseline 3 Increased d-dimer, CT angiogram of the chest showed no clear evidence of a central PE, Dopplers of the lower extremity were negative for DVT 4 acute hypoxic respiratory failure second to COVID 19. The patient continues to production dependent 2 L per minute cannula. Note that the patient had a Recent hospitalization in mid June for COVID-19 pneumonia, discharged home on home oxygen 5 Diabetes mellitus type 2 6 Hyperlipidemia 7 Difficulty hearing 8 Poor appetite, difficulty swallowing, speech evaluation 9 Rule out possibility of adrenal insufficiency 10 Oropharyngeal candidiasis 11 General medical debility 12 Previous history of CVA 2006 with residual gait instability 13 History of cataracts 14 extensive oropharyngeal candidiasis currently on Diflucan Plan: The patient was seen and evaluated, he is clinically improved and is stable for now Complete a course of Diflucan Condition is stable and swallowing is improved Dietary habits are improving as the patient's thrush is being treated with Diflucan. Oxygen 2 L per minute nasal cannula, room air oxygen is around 88%, wean off oxygen and the patient may potentially go to room air oxygen. We need subacute rehab upon discharge as the patient seems to be quite debilitated and he would benefit from rehabilitation. No active issues and pulmonary and critical care services we'll sign off the case.
[2021-08-30 16:29] LABS: Glucose,Whole Blood 293 mg/dL (75-99)
[2021-08-30 20:56] LABS: Glucose,Whole Blood 307 mg/dL (75-99)
[2021-08-30] MEDS: INSULIN DETEMIR (LEVEMIR) 100 UNIT/ML SYR SQ SCH (22:58)
[2021-08-30] MEDS: TAMSULOSIN 0.4 MG CAP.ER.24H PO SCH (22:59)
[2021-08-30] MEDS: ATORVASTATIN 40 MG TAB PO SCH (22:59)
[2021-08-31] MEDS: SODIUM CHLORIDE 0.9% 1,000 ML IV SCH ×2 (05:14→17:12)
[2021-08-31 07:26] LABS: Glucose,Whole Blood 86 mg/dL (75-99)
[2021-08-31] MEDS: INSULIN ASPART (NovoLOG) 100 UNIT/ML VIAL SQ SCH ×7 (08:10→21:07)
[2021-08-31] MEDS: ENOXAPARIN 30 MG/0.3 ML SYRINGE SQ SCH (08:15)
[2021-08-31] MEDS: ZINC SULFATE 220 MG CAP PO SCH (08:15)
[2021-08-31] MEDS: FLUCONAZOLE 100 MG TAB PO SCH (08:15)
[2021-08-31] MEDS: dexAMETHasone 4 MG TAB PO SCH (08:16)
[2021-08-31] MEDS: ASCORBIC ACID 500 MG TAB PO SCH ×2 (08:16→21:06)
[2021-08-31] MEDS: ARTIFICIAL TEARS-HYPROMELLOSE DROPS 15 ML BTL BOTH EYES SCH ×2 (08:16→21:06)
[2021-08-31] MEDS: CHOLECALCIFEROL 25 MCG (1000 IU) TABLET PO SCH (08:16)
[2021-08-31] MEDS: ASPIRIN 81 MG PO SCH (08:16)
[2021-08-31] MEDS: GENTAMICIN 0.1% CREAM 15 GM TUBE TOPICAL SCH (08:20)
[2021-08-31 10:41] LABS: HCT 31.1 % (39.6-50.0); HGB 9.7 g/dL (13.0-17.0); MCH 30.9 pg (27.0-32.0); MCHC 31.2 g/dL (32.0-37.0); Mean Platelet Volume 11.4 fL (9.5-12.2); Platelet Count 360 X 10*3/uL (140-440); RBC 3.14 X 10*6/uL (4.40-5.60); RDW 15.1 % (11.5-14.5); WBC 16.18 X 10*3/uL (4.50-10.00)
[2021-08-31 11:33] LABS: Glucose,Whole Blood 152 mg/dL (75-99)
--- NOTE | 2021-08-31 11:41 | P.DS ---
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 on 1L NC. -Probable aspiration pneumonitis, speech evaluation completed - diet adjusted, clinically improving -Elevated D-Dimer, CTA negative for PE, however there is persistant increased pulmonary vascular markings. -Leukocytosis, due to infection, stable the last 3 days, repeat tomorrow -Oral thrush: Secondary to prolonged breathing treatments and systemic steroids, on diflucan, improving -Generalized weakness, poor by mouth intake and moderate protein calorie malnutrition secondary to oral thrush and medical debility. -Recent hospitalization in mid June for COVID-19 pneumonia, requiring home oxygen -Type 2 diabetes mellitus with hyperglyemia exacerbated by steroids, -Hyperlipidemia -Significant generalized weakness, will need subcate rehab on discharge -History of CVA/TIA with residual unsteady gait Discharge Disposition Patient is cleared medically for discharge to subacute rehabilitation. Diet modified which includes dysphagia chopped with nectar thick liquids, 1:1 supervision, upright 90*. Additionally patient tolerates about 1/2 tsp on a spoon of liquid at a time. Labs in 2-3 days. Hospital Course This is a pleasant 86 year old male who presents to the hospital with shortness of breath and weakness s/p COVID 19 pneumonia infection in June of 2021, which required nasal cannula at home. CTA on admission revealed cannot entirely exclude segmental or subsegmental PE. Persistant bilateral multifocal opacities and lower lung organizing consolidations consistent with ongoing or recurrent COVID-19 infection with increased bilateral involvement suggesting worsening infection and or new alveolar and interstitial edema. It was found during a barium swallow that revealed large aspiration with thin liquids. Recommen dations from speech therapy including chopped diet, one-to-one assist, liquids via spoon only and half teaspoon amount with upright position with all by mouth intake. Patient is being followed closely by pulmonary. Labs today show hgb of 10.4, sodium 140, potassium 5, blood sugars are elevated in the high 200's to 300's. Vital signs today show temp of 96, heart rate 70, blood pressure 98/64, 91% on 2L NC. Chest xray shows bibasilar infiltrates greater on the left can be compatible with aspiration pneumonia. However, he continues to improve with lung sounds, aeration, duration, and requires 2-3 L of nasal cannula. Yesterday family was feeding patient noodles and carrots in broth, which pt was displaying some coughing after minimal amounts of broth with the noodles. Educated family that all liquids need to be nectar thick. Venous doppler negative for bilateral DVT. Echocardiogram reveals EF 55 to 60% with mild pulmonary hypertension. Patient is alert, appropriate, very heard of hearing, but overall doing well and is ready for discharge today. 08/31/2021 Labs today show a WBC of 16, however, patient is still receiving oral decadron, as clinically his overall respiratory status has improved drastically. Patient is cleared for discharge to subacute rehab. Vitals today include a Temp of 97.6, heart rate 61, blood pressure 110/57, 91% on 2L NC. He is able to cough and clear throat. His oral thrush continues to improve. Lungs are clear, S1 and S2 auscultated. Patient denies chest pain, shortness of breath. There were no acute events over night. Please see medication reconciliation for a list of current medications. Thank you for allowing us to participate in the care of this patient. Patient Condition at Discharge: Fair Plan - Discharge Summary Discharge Rx Participant: No New Discharge Prescriptions: New Tamsulosin [Flomax] 0.4 mg PO HS 8 Days #8 capsule dexAMETHasone ORAL [Hexadrol] 4 mg PO DAILY tab INSULIN ASPART (NovoLOG) [NovoLOG (formulary)] 0 unit SQ ACHS ml Zinc Sulfate [Orazinc] 220 mg PO DAILY cap Fluconazole [Diflucan] 100 mg PO DAILY 8 Days tab Insulin Detemir (Levemir) [Levemir] 20 unit SQ HS ml INSULIN ASPART (NovoLOG) [NovoLOG (formulary)] 2 unit SQ AC-TID ml Continue Cholecalciferol [Vitamin D3 (25 Mcg = 1000 Iu)] 25 mcg PO DAILY Atorvastatin [Lipitor] 40 mg PO HS Ascorbic Acid [Vitamin C] 500 mg PO BID Aspirin EC [Ecotrin Low Dose] 81 mg PO DAILY Artificial Tears-Hypromellose [Artificial Tear Drops] 1 drop BOTH EYES BID Allopurinol [Zyloprim] 100 mg PO DAILY Gentamicin 0.1% Cream 1 applic TOPICAL DAILY Insulin Aspart [NovoLOG Flexpen] See Protocol SQ AC-TID Discharge Medication List Allopurinol [Zyloprim] 100 mg PO DAILY 07/13/21 [History] Artificial Tears-Hypromellose [Artificial Tear Drops] 1 drop BOTH EYES BID 07/13/21 [History] Aspirin EC [Ecotrin Low Dose] 81 mg PO DAILY 07/13/21 [History] Atorvastatin [Lipitor] 40 mg PO HS 07/13/21 [History] Cholecalciferol [Vitamin D3 (25 Mcg = 1000 Iu)] 25 mcg PO DAILY 07/13/21 [History] Gentamicin 0.1% Cream 1 applic TOPICAL DAILY 08/18/21 [History] Ascorbic Acid [Vitamin C] 500 mg PO BID 08/25/21 [History] Insulin Aspart [NovoLOG Flexpen] See Protocol SQ AC-TID 08/25/21 [History] Fluconazole [Diflucan] 100 mg PO DAILY 8 Days tab 08/31/21 [Rx] INSULIN ASPART (NovoLOG) [NovoLOG (formulary)] 0 unit SQ ACHS ml 08/31/21 [Rx] INSULIN ASPART (NovoLOG) [NovoLOG (formulary)] 2 unit SQ AC-TID ml 08/31/21 [Rx] Insulin Detemir (Levemir) [Levemir] 20 unit SQ HS ml 08/31/21 [Rx] Tamsulosin [Flomax] 0.4 mg PO HS 8 Days #8 capsule 08/31/21 [Rx] Zinc Sulfate [Orazinc] 220 mg PO DAILY cap 08/31/21 [Rx] dexAMETHasone ORAL [Hexadrol] 4 mg PO DAILY tab 08/31/21 [Rx] Follow up Appointment(s)/Referral(s): Regina Kerr MD [Primary Care Provider] - 1-2 days Jason Holman DO [Family Provider] - 1 Week Ambulatory/Diagnostic Orders: Basic Metabolic Panel [LAB.AMB] Time Frame: 3 Days, Location: None Selected Complete Blood Count w/diff [LAB.AMB] Time Frame: 3 Days, Location: None Selected Activity/Diet/Wound Care/Special Instructions: discharged on 2-3 L Nasal Cannula Discharge Disposition: TRANSFER TO SNF/ECF
[2021-08-31 13:03] LABS: Basophils # (M) 0 X 10*3/uL (0.00-0.10); Eosinophils # (M) 0 X 10*3/uL (0.04-0.35); Lymphocytes # (M) 0.97 X 10*3/uL (0.90-5.00); Monocytes # (M) 0.49 X 10*3/uL (0.20-1.00); Neutrophils # (M) 14.72 X 10*3/uL (2.00-8.90); Neutrophils % (M) 91 %
[2021-08-31 14:59] VITALS: BMI 21.0
[2021-08-31 16:17] LABS: Glucose,Whole Blood 215 mg/dL (75-99)
[2021-08-31 20:26] LABS: Glucose,Whole Blood 309 mg/dL (75-99)
[2021-08-31] MEDS: ATORVASTATIN 40 MG TAB PO SCH (21:06)
[2021-08-31] MEDS: INSULIN DETEMIR (LEVEMIR) 100 UNIT/ML SYR SQ SCH (21:07)
[2021-08-31] MEDS: TAMSULOSIN 0.4 MG CAP.ER.24H PO SCH (21:07)
[2021-09-01 07:32] LABS: Glucose,Whole Blood 66 mg/dL (75-99)
[2021-09-01] MEDS: INSULIN ASPART (NovoLOG) 100 UNIT/ML VIAL SQ SCH ×7 (07:50→21:36)
[2021-09-01] MEDS: ASPIRIN 81 MG PO SCH (08:41)
[2021-09-01] MEDS: ENOXAPARIN 30 MG/0.3 ML SYRINGE SQ SCH (08:41)
[2021-09-01] MEDS: dexAMETHasone 4 MG TAB PO SCH (08:41)
[2021-09-01] MEDS: FLUCONAZOLE 100 MG TAB PO SCH (08:41)
[2021-09-01] MEDS: CHOLECALCIFEROL 25 MCG (1000 IU) TABLET PO SCH (08:41)
[2021-09-01] MEDS: ZINC SULFATE 220 MG CAP PO SCH (08:41)
[2021-09-01] MEDS: ASCORBIC ACID 500 MG TAB PO SCH ×2 (08:41→21:37)
[2021-09-01] MEDS: ARTIFICIAL TEARS-HYPROMELLOSE DROPS 15 ML BTL BOTH EYES SCH ×2 (08:42→21:37)
[2021-09-01] MEDS: GENTAMICIN 0.1% CREAM 15 GM TUBE TOPICAL SCH (10:46)
[2021-09-01] MEDS: SODIUM CHLORIDE 0.9% 1,000 ML IV SCH (10:47)
[2021-09-01 12:19] LABS: Glucose,Whole Blood 109 mg/dL (75-99)
--- NOTE | 2021-09-01 14:10 | P.DS ---
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 on 1L NC. -Probable aspiration pneumonitis, speech evaluation completed - diet adjusted, clinically improving -Elevated D-Dimer, CTA negative for PE, however there is persistant increased pulmonary vascular markings. -Leukocytosis, due to infection, stable the last 3 days, repeat tomorrow -Oral thrush: Secondary to prolonged breathing treatments and systemic steroids, on diflucan, improving -Generalized weakness, poor by mouth intake and moderate protein calorie malnutrition secondary to oral thrush and medical debility. -Recent hospitalization in mid June for COVID-19 pneumonia, requiring home oxygen -Type 2 diabetes mellitus with hyperglyemia exacerbated by steroids, -Hyperlipidemia -Significant generalized weakness, will need subcate rehab on discharge -History of CVA/TIA with residual unsteady gait Discharge Disposition Patient is cleared medically for discharge to subacute rehabilitation. Diet modified which includes dysphagia chopped with nectar thick liquids, 1:1 supervision, upright 90*. Additionally patient tolerates about 1/2 tsp on a spoon of liquid at a time. Labs in 2-3 days. Hospital Course This is a pleasant 86 year old male who presents to the hospital with shortness of breath and weakness s/p COVID 19 pneumonia infection in June of 2021, which required nasal cannula at home. CTA on admission revealed cannot entirely exclude segmental or subsegmental PE. Persistant bilateral multifocal opacities and lower lung organizing consolidations consistent with ongoing or recurrent COVID-19 infection with increased bilateral involvement suggesting worsening infection and or new alveolar and interstitial edema. It was found during a barium swallow that revealed large aspiration with thin liquids. Recommen dations from speech therapy including chopped diet, one-to-one assist, liquids via spoon only and half teaspoon amount with upright position with all by mouth intake. Patient is being followed closely by pulmonary. Labs today show hgb of 10.4, sodium 140, potassium 5, blood sugars are elevated in the high 200's to 300's. Vital signs today show temp of 96, heart rate 70, blood pressure 98/64, 91% on 2L NC. Chest xray shows bibasilar infiltrates greater on the left can be compatible with aspiration pneumonia. However, he continues to improve with lung sounds, aeration, duration, and requires 2-3 L of nasal cannula. Yesterday family was feeding patient noodles and carrots in broth, which pt was displaying some coughing after minimal amounts of broth with the noodles. Educated family that all liquids need to be nectar thick. Venous doppler negative for bilateral DVT. Echocardiogram reveals EF 55 to 60% with mild pulmonary hypertension. Patient is alert, appropriate, very heard of hearing, but overall doing well and is ready for discharge today. 09/01/2021 Patient is evaluated today sitting up in a chair. He denies any pain, cough or shortness of breath. Lungs are clear, continues on 2-3 L of nasal cannula with oxygen saturation of 94%, heart rate 95, blood pressure 135/81 and he is afebrile. Patient did not discharge to subacute rehab as family would like patient to be evaluated as an inpatient rehab, there is issue with insurance coverage and we're pending an appeal. If there is a decision today patient can be cleared medically for discharge. He is able to cough and clear throat. His oral thrush continues to improve. Lungs are clear, S1 and S2 auscultated. Patient denies chest pain, shortness of breath. There were no acute events over night. Please see medication reconciliation for a list of current medications. Thank you for allowing us to participate in the care of this patient. Patient Condition at Discharge: Fair Plan - Discharge Summary Discharge Rx Participant: No New Discharge Prescriptions: New Tamsulosin [Flomax] 0.4 mg PO HS 8 Days #8 capsule dexAMETHasone ORAL [Hexadrol] 4 mg PO DAILY tab INSULIN ASPART (NovoLOG) [NovoLOG (formulary)] 0 unit SQ ACHS ml Zinc Sulfate [Orazinc] 220 mg PO DAILY cap Fluconazole [Diflucan] 100 mg PO DAILY 8 Days tab Insulin Detemir (Levemir) [Levemir] 20 unit SQ HS ml INSULIN ASPART (NovoLOG) [NovoLOG (formulary)] 2 unit SQ AC-TID ml Continue Cholecalciferol [Vitamin D3 (25 Mcg = 1000 Iu)] 25 mcg PO DAILY Atorvastatin [Lipitor] 40 mg PO HS Ascorbic Acid [Vitamin C] 500 mg PO BID Aspirin EC [Ecotrin Low Dose] 81 mg PO DAILY Artificial Tears-Hypromellose [Artificial Tear Drops] 1 drop BOTH EYES BID Allopurinol [Zyloprim] 100 mg PO DAILY Gentamicin 0.1% Cream 1 applic TOPICAL DAILY Insulin Aspart [NovoLOG Flexpen] See Protocol SQ AC-TID Discharge Medication List Allopurinol [Zyloprim] 100 mg PO DAILY 07/13/21 [History] Artificial Tears-Hypromellose [Artificial Tear Drops] 1 drop BOTH EYES BID 07/13/21 [History] Aspirin EC [Ecotrin Low Dose] 81 mg PO DAILY 07/13/21 [History] Atorvastatin [Lipitor] 40 mg PO HS 07/13/21 [History] Cholecalciferol [Vitamin D3 (25 Mcg = 1000 Iu)] 25 mcg PO DAILY 07/13/21 [Hist ory] Gentamicin 0.1% Cream 1 applic TOPICAL DAILY 08/18/21 [History] Ascorbic Acid [Vitamin C] 500 mg PO BID 08/25/21 [History] Insulin Aspart [NovoLOG Flexpen] See Protocol SQ AC-TID 08/25/21 [History] Fluconazole [Diflucan] 100 mg PO DAILY 8 Days tab 08/31/21 [Rx] INSULIN ASPART (NovoLOG) [NovoLOG (formulary)] 0 unit SQ ACHS ml 08/31/21 [Rx] INSULIN ASPART (NovoLOG) [NovoLOG (formulary)] 2 unit SQ AC-TID ml 08/31/21 [Rx] Insulin Detemir (Levemir) [Levemir] 20 unit SQ HS ml 08/31/21 [Rx] Tamsulosin [Flomax] 0.4 mg PO HS 8 Days #8 capsule 08/31/21 [Rx] Zinc Sulfate [Orazinc] 220 mg PO DAILY cap 08/31/21 [Rx] dexAMETHasone ORAL [Hexadrol] 4 mg PO DAILY tab 08/31/21 [Rx] Follow up Appointment(s)/Referral(s): Jason Holman DO [Family Provider] - 1 Week Regina Kerr MD [Primary Care Provider] - 1-2 days Ambulatory/Diagnostic Orders: Basic Metabolic Panel [LAB.AMB] Time Frame: 3 Days, Location: None Selected Complete Blood Count w/diff [LAB.AMB] Time Frame: 3 Days, Location: None Selected Activity/Diet/Wound Care/Special Instructions: discharged on 2-3 L Nasal Cannula Discharge Disposition: TRANSFER TO SNF/ECF
[2021-09-01 16:47] LABS: Glucose,Whole Blood 363 mg/dL (75-99)
[2021-09-01 20:18] LABS: Glucose,Whole Blood 245 mg/dL (75-99)
[2021-09-01] MEDS: INSULIN DETEMIR (LEVEMIR) 100 UNIT/ML SYR SQ SCH (21:37)
[2021-09-01] MEDS: TAMSULOSIN 0.4 MG CAP.ER.24H PO SCH (21:37)
[2021-09-01] MEDS: ATORVASTATIN 40 MG TAB PO SCH (21:37)
[2021-09-02] MEDS: SODIUM CHLORIDE 0.9% 1,000 ML IV SCH ×2 (04:17→14:42)
[2021-09-02 07:12] LABS: Glucose,Whole Blood 67 mg/dL (75-99)
[2021-09-02 07:34] LABS: Glucose,Whole Blood 68 mg/dL (75-99)
[2021-09-02] MEDS: INSULIN ASPART (NovoLOG) 100 UNIT/ML VIAL SQ SCH ×7 (07:50→20:48)
[2021-09-02 07:51] LABS: Glucose,Whole Blood 79 mg/dL (75-99)
[2021-09-02] MEDS: ENOXAPARIN 30 MG/0.3 ML SYRINGE SQ SCH (09:41)
[2021-09-02] MEDS: CHOLECALCIFEROL 25 MCG (1000 IU) TABLET PO SCH (09:42)
[2021-09-02] MEDS: ZINC SULFATE 220 MG CAP PO SCH (09:42)
[2021-09-02] MEDS: ASPIRIN 81 MG PO SCH (09:42)
[2021-09-02] MEDS: dexAMETHasone 4 MG TAB PO SCH (09:42)
[2021-09-02] MEDS: FLUCONAZOLE 100 MG TAB PO SCH (09:42)
[2021-09-02] MEDS: ARTIFICIAL TEARS-HYPROMELLOSE DROPS 15 ML BTL BOTH EYES SCH ×2 (09:42→20:49)
[2021-09-02] MEDS: ASCORBIC ACID 500 MG TAB PO SCH ×2 (09:42→20:49)
[2021-09-02] MEDS: GENTAMICIN 0.1% CREAM 15 GM TUBE TOPICAL SCH (09:43)
[2021-09-02] MEDS ORDERED: ACETAMINOPHEN TAB 325 MG TAB PO PRN (10:42)
[2021-09-02 11:47] LABS: Glucose,Whole Blood 161 mg/dL (75-99)
--- NOTE | 2021-09-02 12:49 | XR ---
EXAMINATION TYPE: XR chest 1V portable DATE OF EXAM: 09/02/2021 COMPARISON: 08/26/2021 HISTORY: Shortness of breath TECHNIQUE: Single frontal view of the chest is obtained. FINDINGS: Metallic density overlying the lateral left margin of the neck noted. Cardiac device seen and there is limited inspiration. Diffuse interstitial infiltrates are again noted. Tiny effusions melendez spected. No pneumothorax. Arthropathy of the shoulders. IMPRESSION: Bilateral interstitial infiltrates correlate for venous congestion or interstitial pneum onia.
--- NOTE | 2021-09-02 15:00 | P.PN ---
Subjective Progress Note Date: 09/02/21 Patient is a pleasant 86-year-old male was a discharged from the hospital after a prolonged hospital physician for Covid 19 pneumonia and patient was on systemic steroids which was recently discontinued. Patient was comfortable on 2 L of oxygen as an outpatient is is pretty status continued to get worse after discontinue additional steroids and the patient is presently on 5-6 L of oxygen and still short of breath. Patient lives with family that his son and [id number] who takes good care of the patient. Patient has been fatigued and family is unable to care for him. Patient not has not been eating well patient does have oral thrush as well. Because of worsening shortness of breath Covid 19 PCR test was repeated again and the patient is negative for Covid 19 but the patient had a CT of the chest which showed diffuse bilateral groundglass of [id number] along with some residual infiltrates from his previous Covid 19. Patient doesn't have any PE at least in the central vessels although subsegmental PE cannot be excluded as per the reading. Patient has some hilar and mediastinal lymphadenopathy. 08/26/2021 Patient evaluated today with his daughter at the bedside. Patient is currently on 5L NC, as a week ago he was doing well and was evaluated by pulmonary in the office and apparently has imaging at this time showed improvement of the Covid 19 pneumonia. Patient's negative for Covid 19 this admission. Her daughter he has been decreasing oral intake, not eating and drinking well. He does have oral thrush and presents with throat clearing and coughing with drinking. He is on nystatin. Doppler is negative for bilateral DVT. Patient is barium swallow today which showed large aspiration with thin liquids. Recommendations from speech therapy including mechanical soft diet, one-to-one assist, liquids via spoon only and half teaspoon amount with upright position with all by mouth intake. Patient is being followed closely by pulmonary. Labs today show hgb of 10.4, sodium 140, potassium 5, blood sugars are elevated in the high 200's to 300's. Vital signs today show temp of 96, heart rate 70, blood pressure 98/64, 91% on 2L NC. Chest xray today shows bibasilar infiltrates greater on the left can be compatible with aspiration pneumonia. 08/27/2021 Patient is evaluated sitting up in the chair today, appears in much better spirits and overall states he is feeling better. Patient was seen today CT evaluation at the bedside. Patient is on 3 L nasal cannula with an oxygen saturation of 91-93%. We will order incentive spirometer. Patient's oral intake is minimal, added normal saline today for hydration. PT/OT consultation in place, to begin discharge planning, family would like [facility] rehab. Patient is to follow closely by pulmonary services, he is on COVID Vitamins and PO Decadron. 11 today show a temperature 97.7, heart rate 71, blood pressure is 90/55, 95% oxygenation. White blood cell count today is 18.7, hemoglobin 12.4. Pending metabolic panel, repeat troponin is negative. Blood cultures are negative . 08/28/2021 Patient evaluated today sitting up in the chair with his family at the bedside. Denies no new complaints. Oxygenation is improving he is down to 2l nc. Cleared by pulmonary today, pending discharge to IP rehab once a bed is found for patient. Continues on Dysphagia diet with nectar thick liquids. WBC today is 17 .1, hgb 11.2, sodium 140, potassium 4.8, blood sugars in the 300s, BUN 28, creatinine 1.07. Albumin 2.7. Vitals today Temp 97.9, heart rate 68, blood pressure 121/67. Doing well with IS. 08/29/2021 Patient up in chair with family at the bedside. Continues to improve, lungs are clear today. Vitals: T-97.6, heart rate 68, blood pressure 123/60, 95% 2L NC. Labs: WBC 17.1, Hgb 11.0. Intake and Output inaccurate, there is no oral liquid intake documented. IV fluids seemed to have helped as patient appears more hydrated and his color looks better today. Pending SW for inpatient rehab placement on discharge which will most likely happen on Tuesday, unfortuneatly, otherwise he is stable medically on 2L NC. Continue with current diet recommendations. 08/30/2021 Patient evaluated today sitting up in the chair with family. He looks better every day, he is smiling and appears well. Family states he was able to play a game of cribbage today. They had brought homemade chicken noodle soup and king ting the patient to eat. However, noticed that patient did cough after some of the bites. Instructed family that his diet is ordered as chopped and to only give solids not mixed with the broth. Acknowledged understanding. Continues to make clinical improvement, down to 1L NC with an ox saturation of 95%, blood pressure 145/74, heart rate 65, afebrile. Labs today show WBC of 15.70, hgb 9.2, sodium 140, potassium 4.5, sugars in the 100s. Pending SW tomorrow for update on DC plan to IP rehab. 09/02/2021 Patient is seen and evaluated in follow-up this morning with family at the bedside and still appears comfortable although continues to be quite weak. Patient awaiting appeal for authorization from insurance for some type of inpatient rehab as family is reluctant to send him to a subacute rehab. Patient is currently 98% on 2 L via nasal cannula and afebrile. Patient is maintained on dysphagia 3 chopped diet with nectar thickened liquids and one-to-one supervision no straws and strict aspiration precautions as patient is high risk for aspirating. Repeat chest x-ray continues to show bilateral interstitial infiltrates to correlate for venous congestion or interstitial pneumonia that are again noted with no pneumothorax noted. Accu-Cheks and sliding scale as needed and will continue 3 meal insulin along with long-acting. ROS Constitutional: Denied fever, reports weakness Cardiovascular: denied any chest pain, palpitations Gastrointestinal: denied any nausea vomiting, denies diarrhea, decreased oral intake Pulmonary: Reports cough, shortness of breath at rest with no worsening Neurologic denied any new focal deficits All inpatient medications were reviewed and appropriate changes in these medications as dictated in the interval history and assessment and plan. Active Medications Acetaminophen (Acetaminophen Tab 325 Mg Tab) 650 mg PO Q6HR PRN PRN Reason: Fever and/ or Pain Last Admin: 09/02/21 11:34 Dose: 650 mg Documented by: Artificial Tears (Artificial Tears-Hypromellose Drops 15 Ml Btl) 1 drops BOTH EYES BID [facility] Last Admin: 09/02/21 09:42 Dose: 1 drops Documented by: Ascorbic Acid (Ascorbic Acid 500 Mg Tab) 500 mg PO BID [facility] Last Admin: 09/02/21 09:42 Dose: 500 mg Documented by: Aspirin (Aspirin 81 Mg) 81 mg PO DAILY [facility] Last Admin: 09/02/21 09:42 Dose: 81 mg Documented by: Atorvastatin Calcium (Atorvastatin 40 Mg Tab) 40 mg PO HS [facility] Last Admin: 09/01/21 21:37 Dose: 40 mg Documented by: Cholecalciferol (Cholecalciferol 25 Mcg (1000 Iu) Tablet) 25 mcg PO DAILY [facility] Last Admin: 09/02/21 09:42 Dose: 25 mcg Documented by: Dexamethasone (Dexamethasone 4 Mg Tab) 4 mg PO DAILY [facility] Last Admin: 09/02/21 09:42 Dose: 4 mg Documented by: Enoxaparin Sodium (Enoxaparin 30 Mg/0.3 Ml Syringe) 30 mg SQ DAILY [facility] Last Admin: 09/02/21 09:41 Dose: 30 mg Documented by: Fluconazole (Fluconazole 100 Mg Tab) 100 mg PO DAILY [facility] Last Admin: 09/02/21 09:42 Dose: 100 mg Documented by: Gentamicin Sulfate (Gentamicin 0.1% Cream 15 Gm Tube) 1 applic TOPICAL DAILY [facility]; Protocol Last Admin: 09/02/21 09:43 Dose: 1 applic Documented by: Sodium Chloride (Saline 0.9%) 1,000 mls @ 75 mls/hr IV .[id number] [facility] Last Admin: 09/02/21 04:17 Dose: Not Given Documented by: Insulin Aspart (Insulin Aspart (Novolog) 100 Unit/Ml Vial) 0 unit SQ ACHS [facility]; Protocol Last Admin: 09/02/21 13:56 Dose: 1 unit Documented by: Insulin Aspart (Insulin Aspart (Novolog) 100 Unit/Ml Vial) 2 unit SQ AC-TID [facility] Last Admin: 09/02/21 13:56 Dose: 2 unit Documented by: Insulin Detemir (Insulin Detemir (Levemir) 100 Unit/Ml Syr) 20 unit SQ [facility] Last Admin: 09/01/21 21:37 Dose: 20 unit Documented by: Tamsulosin HCl (Tamsulosin 0.4 Mg Cap.Er.24h) 0.4 mg PO [facility] Last Admin: 09/01/21 21:37 Dose: 0.4 mg Documented by: Zinc Sulfate (Zinc Sulfate 220 Mg Cap) 220 mg PO DAILY [facility] Last Admin: 09/02/21 09:42 Dose: 220 mg Documented by: PHYSICAL EXAMINATION: GENERAL: The patient is alert and oriented x3, not in any acute distress. Thin built cachectic HEENT: Pupils are round and equally reacting to light. EOMI. No scleral icterus. No conjunctival pallor. Normocephalic, atraumatic. No pharyngeal erythema. No thyromegaly. Oral thrush CARDIOVASCULAR: S1 and S2 present. No murmurs, rubs, or gallops. PULMONARY: Diminished breath sounds bilaterally with some mild scattered rhonchi noted. ABDOMEN: Soft, nontender, nondistended, normoactive bowel sounds. No palpable organomegaly. MUSCULOSKELETAL: No joint swelling or deformity. EXTREMITIES: No cyanosis, clubbing, or pedal edema. NEUROLOGICAL: Gross neurological examination did not reveal any focal deficits. SKIN: No rashes. 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 on 1L NC. -Probable aspiration pneumonitis, speech evaluation completed - diet adjusted, clinically improving, continue strict aspiration precautions -Elevated D-Dimer, CTA negative for PE, however there is persistant increased pulmonary vascular markings. -Leukocytosis, due to infection -Oral thrush: Secondary to prolonged breathing treatments and systemic steroids, on diflucan, improving -Generalized weakness, poor by mouth intake and moderate protein calorie malnutrition secondary to oral thrush and medical debility. -Recent hospitalization in mid June for COVID-19 pneumonia, requiring home oxygen -Type 2 diabetes mellitus with hyperglyemia exacerbated by steroids -Hyperlipidemia -Significant generalized weakness, will need subcate rehab on discharge -History of CVA/TIA with residual unsteady gait -DVT prophylaxis: Lovenox -No code Plan: Begin to slowly decrease Decadron Continue with supportive care Repeat labs tomorrow Pulmonary cleared and is no longer following Pending placement at IP rehab SW following, [id number] was denied and awaiting for appeal for insurance authorization Prognosis is guarded Objective - Vital Signs Vital signs: Vital Signs Temp 97.6 F 09/02/21 07:32 Pulse 63 09/02/21 07:32 Resp 22 09/02/21 07:32 BP 109/61 09/02/21 07:32 Pulse Ox 93 L 09/02/21 07:32 Intake & Output 09/01/21 09/02/21 09/02/21 18:59 06:59 18:59 Output Total 250 Balance -250 Weight 55.7 kg Output: Urine 250 Other: Voiding Method Urinal Diaper # Voids 1 7 - Labs CBC & Chem 7: 08/31/21 04:42 08/30/21 03:47 Labs: Abnormal Lab Results - Last 24 Hours (Table) 09/01/21 09/01/21 09/01/21 Range/Units 12:17 16:43 20:16 POC Glucose (mg/dL) 109 H 363 H 245 H (75-99) mg/dL 09/02/21 09/02/21 Range/Units 07:11 07:33 POC Glucose (mg/dL) 67 L 68 L (75-99) mg/dL
[2021-09-02 16:34] LABS: Glucose,Whole Blood 245 mg/dL (75-99)
[2021-09-02 20:43] LABS: Glucose,Whole Blood 236 mg/dL (75-99)
[2021-09-02] MEDS: TAMSULOSIN 0.4 MG CAP.ER.24H PO SCH (20:48)
[2021-09-02] MEDS: INSULIN DETEMIR (LEVEMIR) 100 UNIT/ML SYR SQ SCH (20:49)
[2021-09-02] MEDS: ATORVASTATIN 40 MG TAB PO SCH (20:49)
[2021-09-03 06:58] LABS: Glucose,Whole Blood 146 mg/dL (75-99)
[2021-09-03] MEDS: CHOLECALCIFEROL 25 MCG (1000 IU) TABLET PO SCH (08:37)
[2021-09-03] MEDS: ASCORBIC ACID 500 MG TAB PO SCH (08:37)
[2021-09-03] MEDS: INSULIN ASPART (NovoLOG) 100 UNIT/ML VIAL SQ SCH ×4 (08:37→11:35)
[2021-09-03] MEDS: ZINC SULFATE 220 MG CAP PO SCH (08:37)
[2021-09-03] MEDS: FLUCONAZOLE 100 MG TAB PO SCH (08:37)
[2021-09-03] MEDS: ASPIRIN 81 MG PO SCH (08:37)
[2021-09-03] MEDS: GENTAMICIN 0.1% CREAM 15 GM TUBE TOPICAL SCH (08:38)
[2021-09-03] MEDS: dexAMETHasone 4 MG TAB PO SCH (08:39)
[2021-09-03] MEDS: ARTIFICIAL TEARS-HYPROMELLOSE DROPS 15 ML BTL BOTH EYES SCH (08:39)
[2021-09-03] MEDS: ENOXAPARIN 30 MG/0.3 ML SYRINGE SQ SCH (08:40)
[2021-09-03 09:39] VITALS: PULSE 67
[2021-09-03 11:14] LABS: Glucose,Whole Blood 136 mg/dL (75-99)
[2021-09-03 11:37] LABS: Basophils # (A) 0.1 k/uL (0-0.2); Basophils % (A) 0 %; Eosinophils # (A) 0.1 k/uL (0-0.7); Eosinophils % (A) 0 %; HCT 38.5 % (39.0-53.0); HGB 12.1 gm/dL (13.0-17.5); Hypochromasia Slight; Lymphocytes # (A) 1.6 k/uL (1.0-4.8); Lymphocytes % (A) 10 %; MCH 31.6 pg (25.0-35.0); MCHC 31.4 g/dL (31.0-37.0); MCV 100.8 fL (80.0-100.0); Macrocytosis Slight; Mean Platelet Volume 8.6; Monocytes # (A) 0.7 k/uL (0-1.0); Monocytes % (A) 4 %; Neutrophils % (A) 85 %; Platelet Count 449 k/uL (150-450); RBC 3.82 m/uL (4.30-5.90); RDW 15.9 % (11.5-15.5); WBC 16.5 k/uL (3.8-10.6)
[2021-09-03 11:55] LABS: African American GFR (CKD) 75 (>60 ml/min/1.73 sqM); Anion Gap 3 mmol/L; Blood Urea Nitrogen 35 mg/dL (9-20); Calcium 8.7 mg/dL (8.4-10.2); Carbon Dioxide 33 mmol/L (22-30); Chloride 98 mmol/L (98-107); Glucose 119 mg/dL (74-99); Non-African American GFR(CKD) 65 (>60 ml/min/1.73 sqM); Potassium 4.8 mmol/L (3.5-5.1); Sodium 134 mmol/L (137-145)
--- NOTE | 2021-09-03 14:30 | P.DS ---
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 on 2L NC. -Probable aspiration pneumonitis -Elevated D-Dimer, CTA negative for PE, however there is persistant increased pulmonary vascular markings. -Leukocytosis, due to infection, trending down -Oral thrush: Secondary to prolonged breathing treatments and systemic steroids, improving -Generalized weakness, poor by mouth intake and moderate protein calorie malnutrition secondary to oral thrush and medical debility. -Recent hospitalization in mid June for COVID-19 pneumonia, requiring home oxygen -Type 2 diabetes mellitus with hyperglyemia exacerbated by steroids, -Hyperlipidemia -Significant generalized weakness -History of CVA/TIA with residual unsteady gait -No code Discharge Disposition Patient is cleared medically for discharge to subacute rehabilitation. Diet modified which includes dysphagia chopped with nectar thick liquids, 1:1 supervision, upright 90*. Additionally patient tolerates about 1/2 tsp on a spoon of liquid at a time. Labs in 2-3 days. Hospital Course This is a pleasant 86 year old male who presents to the hospital with shortness of breath and weakness s/p COVID 19 pneumonia infection in June of 2021, which required nasal cannula at home. CTA on admission revealed cannot entirely exclude segmental or subsegmental PE. Persistant bilateral multifocal opacities and lower lung organizing consolidations consistent with ongoing or recurrent COVID-19 infection with increased bilateral involvement suggesting worsening infection and or new alveolar and interstitial edema. It was found during a barium swallow that revealed large aspiration with thin liquids. Recommendations from speech therapy including chopped diet, one-to-one assist, liquids via spoon only and half teaspoon amount with upright position with all by mouth intake. Patient is being followed closely by pulmonary. Labs today show hgb of 10.4, sodium 140, potassium 5, blood sugars are elevated in the high 200's to 300's. Vital signs today show temp of 96, heart rate 70, blood pressure 98/64, 91% on 2L NC. Chest xray shows bibasilar infiltrates greater on the left can be compatible with aspiration pneumonia. However, he continues to improve with lung sounds, aeration, duration, and requires 2-3 L of nasal cannula. Yesterday family was feeding patient noodles and carrots in broth, which pt was displaying some coughing after minimal amounts of broth with the noodles. Educated family that all liquids need to be nectar thick. Venous doppler negative for bilateral DVT. Echocardiogram reveals EF 55 to 60% with mild pulmonary hypertension. Patient is alert, appropriate, very heard of hearing, but overall doing well and is ready for discharge today. 09/03/2021 Patient is seen and evaluated and follow-up this morning continues on 2-3 L via nasal cannula and denies any worsening shortness of breath. Patient is extremely hard of hearing. Patient to continue with diet recommendations as mentioned above as dysphasia 3 chopped diet with nectar thickened liquids, aspiration precautions, one-to-one supervision with meals, no straws, and patient takes liquids via spoon only in half teaspoon increments. Patient is an extremely high risk for aspiration. Patient has had history of Covid and has been maintained on oxygen and currently on 2-3 L via nasal cannula and will continue. Currently no reports of chest pain, shortness of breath, or palpitations. Patient is afebrile. No reports of nausea or vomiting and patient is tolerating diet. Patient and family will further discuss palliative care in the outpatient setting. Guarded prognosis. Patient will be going to [facility] today. PHYSICAL EXAMINATION: GENERAL: The patient is alert and oriented x3, not in any acute distress. Thin built cachectic HEENT: Pupils are round and equally reacting to light. EOMI. No scleral icterus. No conjunctival pallor. Normocephalic, atraumatic. No pharyngeal erythema. No thyromegaly. Oral thrush CARDIOVASCULAR: S1 and S2 present. No murmurs, rubs, or gallops. PULMONARY: Diminished breath sounds bilaterally with some mild scattered rhonchi noted. ABDOMEN: Soft, nontender, nondistended, normoactive bowel sounds. No palpable organomegaly. MUSCULOSKELETAL: No joint swelling or deformity. EXTREMITIES: No cyanosis, clubbing, or pedal edema. NEUROLOGICAL: Gross neurological examination did not reveal any focal deficits. SKIN: No rashes. Please refer to medication reconciliation sheet for a list of medications. Patient Condition at Discharge: Fair Plan - Discharge Summary Discharge Rx Participant: No New Discharge Prescriptions: New Tamsulosin [Flomax] 0.4 mg PO HS 8 Days #8 capsule dexAMETHasone ORAL [Hexadrol] 4 mg PO DAILY tab INSULIN ASPART (NovoLOG) [NovoLOG (formulary)] 0 unit SQ ACHS ml Zinc Sulfate [Orazinc] 220 mg PO DAILY cap Fluconazole [Diflucan] 100 mg PO DAILY 8 Days tab Insulin Detemir (Levemir) [Levemir] 20 unit SQ HS ml INSULIN ASPART (NovoLOG) [NovoLOG (formulary)] 2 unit SQ AC-TID ml Continue Cholecalciferol [Vitamin D3 (25 Mcg = 1000 Iu)] 25 mcg PO DAILY Atorvastatin [Lipitor] 40 mg PO HS Ascorbic Acid [Vitamin C] 500 mg PO BID Aspirin EC [Ecotrin Low Dose] 81 mg PO DAILY Artificial Tears-Hypromellose [Artificial Tear Drops] 1 drop BOTH EYES BID Allopurinol [Zyloprim] 100 mg PO DAILY Gentamicin 0.1% Cream 1 applic TOPICAL DAILY Insulin Aspart [NovoLOG Flexpen] See Protocol SQ AC-TID Discharge Medication List Allopurinol [Zyloprim] 100 mg PO DAILY 07/13/21 [History] Artificial Tears-Hypromellose [Artificial Tear Drops] 1 drop BOTH EYES BID 07/13/21 [History] Aspirin EC [Ecotrin Low Dose] 81 mg PO DAILY 07/13/21 [History] Atorvastatin [Lipitor] 40 mg PO HS 07/13/21 [History] Cholecalciferol [Vitamin D3 (25 Mcg = 1000 Iu)] 25 mcg PO DAILY 07/13/21 [History] Gentamicin 0.1% Cream 1 applic TOPICAL DAILY 08/18/21 [History] Ascorbic Acid [Vitamin C] 500 mg PO BID 08/25/21 [History] Insulin Aspart [NovoLOG Flexpen] See Protocol SQ AC-TID 08/25/21 [History] Fluconazole [Diflucan] 100 mg PO DAILY 8 Days tab 08/31/21 [Rx] INSULIN ASPART (NovoLOG) [NovoLOG (formulary)] 0 unit SQ ACHS ml 08/31/21 [Rx] INSULIN ASPART (NovoLOG) [NovoLOG (formulary)] 2 unit SQ AC-TID ml 08/31/21 [Rx] Insulin Detemir (Levemir) [Levemir] 20 unit SQ HS ml 08/31/21 [Rx] Tamsulosin [Flomax] 0.4 mg PO HS 8 Days #8 capsule 08/31/21 [Rx] Zinc Sulfate [Orazinc] 220 mg PO DAILY cap 08/31/21 [Rx] dexAMETHasone ORAL [Hexadrol] 4 mg PO DAILY tab 08/31/21 [Rx] Follow up Appointment(s)/Referral(s): Jason Holman DO [Family Provider] - 1 Week (EC[facility]) Regina Kerr MD [Primary Care Provider] - 09/15/21 3:45 pm Ambulatory/Diagnostic Orders: Basic Metabolic Panel [LAB.AMB] Time Frame: 3 Days, Location: None Selected Complete Blood Count w/diff [LAB.AMB] Time Frame: 3 Days, Location: None Selected Activity/Diet/Wound Care/Special Instructions: discharged on 2-3 L Nasal Cannula Discharge Disposition: TRANSFER TO SNF/ECF
[2021-09-03 15:21] VITALS: BP 113/77; RESP 17; TEMP 97.5
[2021-09-03 16:12] LABS: Glucose,Whole Blood 232 mg/dL (75-99)
== END 2021-09-03 16:30 | DRG 177 ==
LOC: EC 05:56 → 3SCARD 09:40 → 1SOBS 20:19 → 3SCARD 08-26 15:27 → 4SSUR 08-29 14:17
PROVIDERS: ADMIT Internal Medicine; ATTEND Internal Medicine
DX: J69.0 Pneumonitis due to inhalation of food and vomit (principal); J12.82 Pneumonia due to coronavirus disease 2019; J96.90 Respiratory failure, unspecified, unspecified whether with hypoxia or hypercapnia; B37.0 Candidal stomatitis; E44.0 Moderate protein-calorie malnutrition; I50.9 Heart failure, unspecified; E11.22 Type 2 diabetes mellitus with diabetic chronic kidney disease; T38.0X5A Adverse effect of glucocorticoids and synthetic analogues, initial encounter; E78.5 Hyperlipidemia, unspecified; N18.9 Chronic kidney disease, unspecified; Z66 Do not resuscitate; U09.9 Post COVID-19 condition, unspecified; R53.81 Other malaise; R26.89 Other abnormalities of gait and mobility; Z20.822 Contact with and (suspected) exposure to COVID-19; H91.90 Unspecified hearing loss, unspecified ear; I27.20 Pulmonary hypertension, unspecified; Z68.22 Body mass index [BMI] 22.0-22.9, adult; Z79.01 Long term (current) use of anticoagulants; Z79.4 Long term (current) use of insulin; Z79.82 Long term (current) use of aspirin; Z79.899 Other long term (current) drug therapy; I69.398 Other sequelae of cerebral infarction
CPT/HCPCS: 36415; 71045; 71046; 71275; 74230; 80048; 80053; 82533; 83605; 83735; 83880; 84145; 84443; 84484; 85025; 85027; 85379; 85610; 85730; 87040; 87635; 93005; 93306; 93970; 99291

== ENCOUNTER → 2022-08-31 | Outpatient (CLI) | payer MEDICARE ==
[2022-08-31 18:45] LABS: Basophils # (A) 0.04 X 10*3/uL (0.00-0.10); Basophils % (A) 0.3 %; Eosinophils # (A) 0.08 X 10*3/uL (0.04-0.35); Eosinophils % (A) 0.6 %; HCT 50.9 % (39.6-50.0); HGB 15.8 g/dL (13.0-17.0); Immature Grans, Automated 0.5 %; Lymphocytes # (A) 2.03 X 10*3/uL (0.90-5.00); MCH 32.2 pg (27.0-32.0); MCV 103.7 fL (80.0-97.0); Mean Platelet Volume 11.4 fL (9.5-12.2); Monocytes # (A) 0.99 X 10*3/uL (0.20-1.00); Monocytes % (A) 7.8 %; NRBC Per 100 WBC 0 /100 WBCS (0.0-0.0); Neutrophils % (A) 74.8 %; Platelet Count 191 X 10*3/uL (140-440); RBC 4.91 X 10*6/uL (4.40-5.60); RDW 15.1 % (11.5-14.5)
[2022-08-31 19:33] LABS: African American GFR (CKD) 48.3 (60.0-200.0); Albumin 3.9 g/dL (3.8-4.9); Albumin/Globulin Ratio 1.95 (1.60-3.17); Anion Gap 13.6 mmol/L (10.00-18.00); BUN/Creat Ratio 23.95 Ratio (12.00-20.00); Blood Urea Nitrogen 35.2 mg/dL (9.0-27.0); Calcium 9.2 mg/dL (8.7-10.3); Carbon Dioxide 21.7 mmol/L (20.0-27.5); Non-African American GFR(CKD) 41.7 (60.0-200.0); Potassium 4.5 mmol/L (3.5-5.5); T4, Free (Free Thyroxine) 1.27 ng/dL (0.800-1.800); Total Bilirubin 0.8 mg/dL (0.30-1.20); Total Protein 5.9 g/dL (6.2-8.2)
== END | disposition home or self-care (01) ==
LOC: LABWHC1 10:52
PROVIDERS: ATTEND Internal Medicine
DX: R53.83 Other fatigue (principal); R53.1 Weakness
CPT/HCPCS: 36415; 80053; 84439; 84443; 85025; 87086